=== PATIENT | male | born 1965 | race Caucasian/White ===

== ENCOUNTER 2022-06-17 16:57 | Inpatient (IN) ==
[2022-06-17] MEDS ORDERED: FUROSEMIDE 40 MG/4 ML VIAL IV ONE (17:41)
[2022-06-17] MEDS ORDERED: STAT IV Infusion **Titration per Protocol STA (17:41)
[2022-06-17] MEDS ORDERED: NITROGLYCERIN/D5W 100MCG/ML 250 ML IV SCH (17:45)
--- NOTE | 2022-06-17 17:54 | Emergency Department Note ---
Impression & Plan Hypertensive urgency, TISHA (acute kidney injury), Renal insufficiency, Pulmonary edema, CHF (congestive heart failure), Noncompliance with medication regimen, Chest pain, Elevated troponin ED Provider Note NAME: ANGELINA MOON AGE: 57 SEX: M : 1965 ARRIVES VIA: Ambulance INFORMANT: Patient, EMS ED PROVIDER(S): Clemente Beltran DO CHIEF COMPLAINT: Chest pain HPI: The patient is a 57-year-old male who presented to the emergency department by ambulance for an evaluation of difficulty breathing. The patient states he has been noticing chest pain and difficulty breathing over the course of the last few days. The patient states he has a history of hypertension. He also has a history of heart failure in the past. He has a history of depression and alcohol abuse. The patient states that he stopped taking his medications. He denies having any abdominal pain or vomiting. He denies having any black or bloody bowels. He notices orthopnea as well as lower extremity swelling. ROS: See above HPI for pertinent positives & negatives. A total of 10 systems reviewed and were otherwise negative. PAST MEDICAL HISTORY: See Below PAST SURGICAL HISTORY: See Below FAMILY HISTORY: See Below SOCIAL HISTORY: See Below HOME MEDICATIONS: See Below ALLERGIES: See Below VITALS: See Below PHYSICAL EXAMINATION: GENERAL: Patient is awake alert in no acute distress patient is resting comfortably and showing no signs of anxiety EYES: The conjunctivae are clear. The pupils are round and reactive. EARS, NOSE, MOUTH AND THROAT: The nose is without any evidence of any deformity. NECK: The neck is nontender and supple. RESPIRATORY: Diminished breath sounds are noted throughout. There were rales at both bases. There is tachypnea as well as conversational dyspnea. CARDIOVASCULAR: Regular rate and rhythm noted there no murmurs rubs or gallops normal S1 normal S2. GASTROINTESTINAL: The abdomen is soft. Abdomen is nontender. MUSCULOSKELETAL/EXTREMITIES: There is no evidence of gross deformity full range of motion is noted in the hips and shoulders. SKIN: Pedal edema was noted bilaterally. NEUROLOGIC: Patient is awake alert and oriented x3 MEDICAL DECISION MAKING: The patient is a 57-year-old male who has a history of hypertension as well as CHF. He presented to the emergency department by ambulance because of worsening shortness of breath and orthopnea. He also started to develop chest pain. The patient had an abnormal EKG but it does appear to be consistent with his previous tracing and a strain pattern. The patient appeared to be in pulmonary edema. This appears to be consistent with a hypertensive urgency. He was treated with IV nitroglycerin as well as IV Lasix. He was reevaluated multiple times. He required IV hydralazine as well. I discussed the patient's laboratory and radiographic studies with him. I also discussed this case with the on-call [facility]. They have agreed to evaluate the patient in the emergency department for further management and disposition. Triage Nursing notes reviewed. Prior medical records reviewed Vital Signs: reviewed and remarkable for hypertension and hypoxia. Differential diagnosis: Cardiac ischemia, aortic dissection, pulmonary embolism, pneumothorax, pneumonia, pericarditis, myocarditis, esophageal rupture, GERD, cholecystitis, pancreatitis, musculoskeletal, as well as other pathologies. ER treatment provided: See below Diagnostics interpreted by me: ECG: EKG was obtained in the emergency department. My interpretation is sinus tachycardia at 102 bpm. There is no ectopy. LVH was noted by voltage criteria with diffuse strain pattern. This was compared to a tracing from January 10, 2018. No changes were noted. Cardiac Monitoring: An order was placed for continuous cardiac monitoring. The monitor shows a rate of 80 bpm with sinus rhythm Laboratory studies: As stated above and show below. Imaging studies: See below. Radiographic imaging was reviewed by myself Consultation(s): I discussed this case with Dr. Bender who is on-call for the [facility] group. ED COURSE: Procedures: none Critical Care: I have personally spent greater than 45 minutes of critical care time in the direct management of this patient. This includes bedside care, interpretation of diagnostic studies, and testing, discussion with consultants, patient, and family members, and other required patient management activities. This 45 minutes is in excess of all separately billable procedures. Past Med/Surg History Medical History Alcohol abuse Depression Dyslipidemia HTN (hypertension) Social History Smoking Status: Never smoker Hx Alcohol Use: Yes (Denies alcohol for last 2 years.) Alcohol type: beer Hx Substance Use: No Preferred Language: Panamanian Communication Ability: Effective Examiner Of Currency Required: No Beliefs That Will Affect Care: None marital status: Single Current Living Situation: Family Current Living Situation Comment: Lives with his brother Kaz. How many Children do You have: 0 Feels Safe at Home: Yes Assistive Devices: None Allergies Allergies Allergy/AdvReac Type Severity Reaction Status Date / Time No Known Allergies Allergy Unknown Verified 06/17/22 21:17 Home Meds Home Medications Medication Instructions Recorded Confirmed amlodipine 5 mg tablet 5 mg PO QAM 06/17/22 06/17/22 cholecalciferol (vitamin D3) 1,250 1,250 mcg PO 2XWK 06/17/22 06/17/22 mcg (50,000 unit) capsule furosemide 40 mg tablet 40 mg PO BID 06/17/22 06/17/22 hydralazine 50 mg tablet 50 mg PO TID 06/17/22 06/17/22 isosorbide mononitrate 30 mg 30 mg PO QAM 06/17/22 06/17/22 tablet,extended release 24 hr metoprolol tartrate 50 mg tablet 50 mg PO BID 06/17/22 06/17/22 mirtazapine 45 mg tablet 45 mg PO HS 06/17/22 06/17/22 potassium chloride 20 mEq 40 meq PO QAM 06/17/22 06/17/22 tablet,extended release(part/cryst) (Klor-Con M) sertraline 100 mg tablet 100 mg PO DAILY 06/17/22 06/17/22 spironolactone 25 mg tablet 12.5 mg PO DAILY 06/17/22 06/17/22 Results & Data (ED) Vital Signs Vital Signs - 24 hr 06/17/22 17:08 06/17/22 17:18 06/17/22 17:28 Temperature 36.5 C Temperature Source Temporal Artery Scan Pulse Rate 100 H 98 H 66 Pulse Rate [Apical] Pulse Rate from SpO2 Sensor Pulse Rhythm Regular Respiratory Rate 20 20 Respiratory Effort / Characteristics Non-Labored Spontaneous Respiratory Depth Normal Respiratory Pattern Regular Blood Pressure 213/161 H Blood Pressure [Left Arm] Blood Pressure Mean 178 Blood Pressure Mean [Left Arm] Blood Pressure Position Sitting Pulse Oximetry 92 97 Oxygen Delivery Method Room Air Nasal Cannula Oxygen Flow Rate 2 Sepsis Recent Fever Within 48 Hours No Sepsis New/Unexplained Change in Mental Status N/A Sepsis Action Taken by Nursing No Action Required 06/17/22 17:10 06/17/22 17:15 06/17/22 17:15 Temperature Temperature Source Pulse Rate 100 H 98 H Pulse Rate [Apical] Pulse Rate from SpO2 Sensor 103 H 98 H Pulse Rhythm Respiratory Rate 31 H 34 H Respiratory Effort / Characteristics Respiratory Depth Respiratory Pattern Blood Pressure 211/153 H Blood Pressure [Left Arm] Blood Pressure Mean 172 Blood Pressure Mean [Left Arm] Blood Pressure Position Pulse Oximetry 91 90 Oxygen Delivery Method Oxygen Flow Rate Sepsis Recent Fever Within 48 Hours Sepsis New/Unexplained Change in Mental Status Sepsis Action Taken by Nursing 06/17/22 17:20 06/17/22 17:30 06/17/22 17:30 Temperature Temperature Source Pulse Rate 100 H 96 H Pulse Rate [Apical] Pulse Rate from SpO2 Sensor 100 H 96 H Pulse Rhythm Respiratory Rate 28 H 22 Respiratory Effort / Characteristics Respiratory Depth Respiratory Pattern Blood Pressure 211/152 H Blood Pressure [Left Arm] Blood Pressure Mean 171 Blood Pressure Mean [Left Arm] Blood Pressure Position Pulse Oximetry 91 90 Oxygen Delivery Method Oxygen Flow Rate Sepsis Recent Fever Within 48 Hours Sepsis New/Unexplained Change in Mental Status Sepsis Action Taken by Nursing 06/17/22 17:40 06/17/22 17:50 06/17/22 18:00 Temperature Temperature Source Pulse Rate 95 H 97 H Pulse Rate [Apical] Pulse Rate from SpO2 Sensor 95 H 97 H Pulse Rhythm Respiratory Rate 24 24 Respiratory Effort / Characteristics Respiratory Depth Respiratory Pattern Blood Pressure 203/152 H Blood Pressure [Left Arm] Blood Pressure Mean 169 Blood Pressure Mean [Left Arm] Blood Pressure Position Pulse Oximetry 91 97 Oxygen Delivery Method Oxygen Flow Rate Sepsis Recent Fever Within 48 Hours Sepsis New/Unexplained Change in Mental Status Sepsis Action Taken by Nursing 06/17/22 18:00 06/17/22 18:04 06/17/22 18:04 Temperature Temperature Source Pulse Rate 94 H 98 H Pulse Rate [Apical] Pulse Rate from SpO2 Sensor 94 H 98 H Pulse Rhythm Respiratory Rate 22 24 Respiratory Effort / Characteristics Respiratory Depth Respiratory Pattern Blood Pressure 211/152 H Blood Pressure [Left Arm] Blood Pressure Mean 171 Blood Pressure Mean [Left Arm] Blood Pressure Position Pulse Oximetry 97 97 Oxygen Delivery Method Oxygen Flow Rate Sepsis Recent Fever Within 48 Hours Sepsis New/Unexplained Change in Mental Status Sepsis Action Taken by Nursing 06/17/22 18:10 06/17/22 18:15 06/17/22 18:15 Temperature Temperature Source Pulse Rate 96 H 97 H Pulse Rate [Apical] Pulse Rate from SpO2 Sensor 96 H 97 H Pulse Rhythm Respiratory Rate 19 22 Respiratory Effort / Characteristics Respiratory Depth Respiratory Pattern Blood Pressure 210/147 H Blood Pressure [Left Arm] Blood Pressure Mean 168 Blood Pressure Mean [Left Arm] Blood Pressure Position Pulse Oximetry 98 97 Oxygen Delivery Method Oxygen Flow Rate Sepsis Recent Fever Within 48 Hours Sepsis New/Unexplained Change in Mental Status Sepsis Action Taken by Nursing 06/17/22 18:20 06/17/22 18:54 06/17/22 19:14 Temperature Temperature Source Pulse Rate 97 H Pulse Rate [Apical] 93 H 91 H Pulse Rate from SpO2 Sensor 97 H Pulse Rhythm Respiratory Rate 27 H 20 22 Respiratory Effort / Characteristics Respiratory Depth Respiratory Pattern Blood Pressure Blood Pressure [Left Arm] 204/141 H 201/132 H Blood Pressure Mean Blood Pressure Mean [Left Arm] 162 155 Blood Pressure Position Pulse Oximetry 98 97 96 Oxygen Delivery Method Nasal Cannula Nasal Cannula Oxygen Flow Rate 2 2 Sepsis Recent Fever Within 48 Hours Sepsis New/Unexplained Change in Mental Status Sepsis Action Taken by Nursing 06/17/22 19:00 06/17/22 19:20 06/17/22 19:30 Temperature Temperature Source Pulse Rate Pulse Rate [Apical] 94 H 88 86 Pulse Rate from SpO2 Sensor Pulse Rhythm Respiratory Rate 20 20 20 Respiratory Effort / Characteristics Respiratory Depth Respiratory Pattern Blood Pressure Blood Pressure [Left Arm] 211/143 H 197/126 H 185/123 H Blood Pressure Mean Blood Pressure Mean [Left Arm] 165 149 143 Blood Pressure Position Pulse Oximetry 96 96 96 Oxygen Delivery Method Nasal Cannula Nasal Cannula Nasal Cannula Oxygen Flow Rate 2 2 2 Sepsis Recent Fever Within 48 Hours Sepsis New/Unexplained Change in Mental Status Sepsis Action Taken by Nursing 06/17/22 19:40 06/17/22 20:26 Temperature Temperature Source Pulse Rate Pulse Rate [Apical] 87 80 Pulse Rate from SpO2 Sensor Pulse Rhythm Respiratory Rate 18 22 Respiratory Effort / Characteristics Respiratory Depth Respiratory Pattern Blood Pressure Blood Pressure [Left Arm] 190/120 H 185/125 H Blood Pressure Mean Blood Pressure Mean [Left Arm] 143 145 Blood Pressure Position Pulse Oximetry 96 97 Oxygen Delivery Method Nasal Cannula Nasal Cannula Oxygen Flow Rate 2 2 Sepsis Recent Fever Within 48 Hours Sepsis New/Unexplained Change in Mental Status Sepsis Action Taken by Assisted Medications Current Medication List: was personally reviewed by me Laboratory Data Attestation: I reviewed the patient's lab results. 06/17/22 17:45 06/17/22 17:45 Lab Results 06/17/22 06/17/22 06/17/22 Range/Units 17:11 17:45 17:45 WBC 11.10 H (4.8-10.8) K/ul RBC 4.07 L (4.70-6.10) M/uL Hgb 12.9 L (14.0-18.0) g/dl Hct 36.4 L (42.0-52.0) % MCV 89.4 (80.0-100.0) fL MCH 31.7 (25.0-34.0) pg MCHC 35.4 (32.0-36.0) g/dL RDW Std Deviation 43.7 (36.4-46.3) fL RDW Coeff of Juliette 13.3 (11.5-14.5) % Plt Count 340 (130-400) K/uL MPV 10.4 (9.4-12.4) fL Immature Gran % (Auto) 0.4 % Neut % (Auto) 85.7 % Lymph % (Auto) 7.5 % [place] % (Auto) 5.7 % Eos % (Auto) 0.2 % Baso % (Auto) 0.5 % Reticulocyte % (Auto) (0.5-2.0) % Neut # (Auto) 9.52 H (1.40-6.50) K/uL Lymph # (Auto) 0.83 L (1.2-3.4) K/uL [place] # (Auto) 0.63 H (0.11-0.59) K/uL Eos # (Auto) 0.02 (0-0.50) K/uL Baso # (Auto) 0.06 (0-0.2) K/uL Reticulocyte # (0.02-0.10) 10^6/uL Immature Gran # (Auto) 0.04 (0.01-0.20) K/uL PT 11.1 (9.0-12.0) Seconds INR 1.0 (0.9-1.1) APTT 23.6 (21.0-31.0) Seconds PTT Ratio 0.9 Sodium (136-145) mmol/L Potassium (3.5-5.1) mmol/L Chloride (98-107) mmol/L Carbon Dioxide (21-32) mmol/L Anion Gap (3-11) BUN (6-23) mg/dl Creatinine (0.6-1.4) mg/dl Est Cr Clr Drug Dosing ml/min Est GFR ( Amer) ml/min Est GFR (Non-Af Amer) ml/min BUN/Creatinine Ratio (10-20) Glucose (70-99(Fasting)) mg/dl Calcium (8.5-10.1) mg/dl Magnesium (1.7-2.4) mg/dl Iron (35-175) mcg/dl Transferrin (200-360) mg/dl Total Bilirubin (0.2-1.0) mg/dl AST (13-39) U/L ALT (7-52) U/L Alkaline Phosphatase (34-104) U/L Troponin I High Sens (0-20) pg/ml B-Natriuretic Peptide (0-100) pg/ml Total Protein (6.0-8.3) gm/dl Albumin (3.4-5.0) gm/dl Globulin (2.5-4.0) gm/dl Albumin/Globulin Ratio (0.9-2) Lipase (11-82) U/L Vitamin B12 310 (180-914) pg/ml Folate 15.54 (>5.38) ng/ml Urine Color Urine Appearance (Clear) Urine pH (4.5-7.5) Ur Specific Collins (1.000-1.030) Urine Protein (Negative) Urine Glucose (UA) (Negative) Urine Ketones (Negative) Urine Blood (Negative) Urine Nitrite (Negative) Urine Bilirubin (Negative) Urine Urobilinogen (Negative) Ur Leukocyte Esterase (Negative) Urine WBC (Auto) (0-5) /hpf Urine RBC (Auto) (0-4) /hpf U Hyaline Cast (Auto) (0-5) /lpf U Epithel Cells (Auto) (0-5) /lpf Urine Bacteria (Auto) (Negative) Ethyl Alcohol mg/dL (<10.0) mg/dl SARS-CoV-2, RNA, NAAT (NEGATIVE) 06/17/22 06/17/22 06/17/22 Range/Units 17:45 17:45 17:45 WBC (4.8-10.8) K/ul RBC (4.70-6.10) M/uL Hgb (14.0-18.0) g/dl Hct (42.0-52.0) % MCV (80.0-100.0) fL MCH (25.0-34.0) pg MCHC (32.0-36.0) g/dL RDW Std Deviation (36.4-46.3) fL RDW Coeff of Juliette (11.5-14.5) % Plt Count (130-400) K/uL MPV (9.4-12.4) fL Immature Gran % (Auto) % Neut % (Auto) % Lymph % (Auto) % [place] % (Auto) % Eos % (Auto) % Baso % (Auto) % Reticulocyte % (Auto) 2.4 H (0.5-2.0) % Neut # (Auto) (1.40-6.50) K/uL Lymph # (Auto) (1.2-3.4) K/uL [place] # (Auto) (0.11-0.59) K/uL Eos # (Auto) (0-0.50) K/uL Baso # (Auto) (0-0.2) K/uL Reticulocyte # 0.10 (0.02-0.10) 10^6/uL Immature Gran # (Auto) (0.01-0.20) K/uL PT (9.0-12.0) Seconds INR (0.9-1.1) APTT (21.0-31.0) Seconds PTT Ratio Sodium 139 (136-145) mmol/L Potassium 3.4 L (3.5-5.1) mmol/L Chloride 105 (98-107) mmol/L Carbon Dioxide 24 (21-32) mmol/L Anion Gap 10 (3-11) BUN 42 H (6-23) mg/dl Creatinine 2.30 H (0.6-1.4) mg/dl Est Cr Clr Drug Dosing 30.1 ml/min Est GFR ( Amer) 35.2 ml/min Est GFR (Non-Af Amer) 30.4 ml/min BUN/Creatinine Ratio 18.3 (10-20) Glucose 98 (70-99(Fasting)) mg/dl Calcium 8.6 (8.5-10.1) mg/dl Magnesium (1.7-2.4) mg/dl Iron (35-175) mcg/dl Transferrin (200-360) mg/dl Total Bilirubin 0.9 (0.2-1.0) mg/dl AST 34 (13-39) U/L ALT 43 (7-52) U/L Alkaline Phosphatase 108 H (34-104) U/L Troponin I High Sens 102.1 H* (0-20) pg/ml B-Natriuretic Peptide 4047 H (0-100) pg/ml Total Protein 6.1 (6.0-8.3) gm/dl Albumin 3.8 (3.4-5.0) gm/dl Globulin 2.3 L (2.5-4.0) gm/dl Albumin/Globulin Ratio 1.7 (0.9-2) Lipase 15 (11-82) U/L Vitamin B12 (180-914) pg/ml Folate (>5.38) ng/ml Urine Color Urine Appearance (Clear) Urine pH (4.5-7.5) Ur Specific Collins (1.000-1.030) Urine Protein (Negative) Urine Glucose (UA) (Negative) Urine Ketones (Negative) Urine Blood (Negative) Urine Nitrite (Negative) Urine Bilirubin (Negative) Urine Urobilinogen (Negative) Ur Leukocyte Esterase (Negative) Urine WBC (Auto) (0-5) /hpf Urine RBC (Auto) (0-4) /hpf U Hyaline Cast (Auto) (0-5) /lpf U Epithel Cells (Auto) (0-5) /lpf Urine Bacteria (Auto) (Negative) Ethyl Alcohol mg/dL (<10.0) mg/dl SARS-CoV-2, RNA, NAAT (NEGATIVE) 06/17/22 06/17/22 06/17/22 Range/Units 18:18 20:15 20:15 WBC (4.8-10.8) K/ul RBC (4.70-6.10) M/uL Hgb (14.0-18.0) g/dl Hct (42.0-52.0) % MCV (80.0-100.0) fL MCH (25.0-34.0) pg MCHC (32.0-36.0) g/dL RDW Std Deviation (36.4-46.3) fL RDW Coeff of Juliette (11.5-14.5) % Plt Count (130-400) K/uL MPV (9.4-12.4) fL Immature Gran % (Auto) % Neut % (Auto) % Lymph % (Auto) % [place] % (Auto) % Eos % (Auto) % Baso % (Auto) % Reticulocyte % (Auto) (0.5-2.0) % Neut # (Auto) (1.40-6.50) K/uL Lymph # (Auto) (1.2-3.4) K/uL [place] # (Auto) (0.11-0.59) K/uL Eos # (Auto) (0-0.50) K/uL Baso # (Auto) (0-0.2) K/uL Reticulocyte # (0.02-0.10) 10^6/uL Immature Gran # (Auto) (0.01-0.20) K/uL PT (9.0-12.0) Seconds INR (0.9-1.1) APTT (21.0-31.0) Seconds PTT Ratio Sodium (136-145) mmol/L Potassium (3.5-5.1) mmol/L Chloride (98-107) mmol/L Carbon Dioxide (21-32) mmol/L Anion Gap (3-11) BUN (6-23) mg/dl Creatinine (0.6-1.4) mg/dl Est Cr Clr Drug Dosing ml/min Est GFR ( Amer) ml/min Est GFR (Non-Af Amer) ml/min BUN/Creatinine Ratio (10-20) Glucose (70-99(Fasting)) mg/dl Calcium (8.5-10.1) mg/dl Magnesium 2.2 (1.7-2.4) mg/dl Iron 43 (35-175) mcg/dl Transferrin 282 (200-360) mg/dl Total Bilirubin (0.2-1.0) mg/dl AST (13-39) U/L ALT (7-52) U/L Alkaline Phosphatase (34-104) U/L Troponin I High Sens (0-20) pg/ml B-Natriuretic Peptide (0-100) pg/ml Total Protein (6.0-8.3) gm/dl Albumin (3.4-5.0) gm/dl Globulin (2.5-4.0) gm/dl Albumin/Globulin Ratio (0.9-2) Lipase (11-82) U/L Vitamin B12 (180-914) pg/ml Folate (>5.38) ng/ml Urine Color Urine Appearance (Clear) Urine pH (4.5-7.5) Ur Specific Collins (1.000-1.030) Urine Protein (Negative) Urine Glucose (UA) (Negative) Urine Ketones (Negative) Urine Blood (Negative) Urine Nitrite (Negative) Urine Bilirubin (Negative) Urine Urobilinogen (Negative) Ur Leukocyte Esterase (Negative) Urine WBC (Auto) (0-5) /hpf Urine RBC (Auto) (0-4) /hpf U Hyaline Cast (Auto) (0-5) /lpf U Epithel Cells (Auto) (0-5) /lpf Urine Bacteria (Auto) (Negative) Ethyl Alcohol mg/dL < 10.0 (<10.0) mg/dl SARS-CoV-2, RNA, NAAT NEGATIVE (NEGATIVE) 06/17/22 Range/Units 20:50 WBC (4.8-10.8) K/ul RBC (4.70-6.10) M/uL Hgb (14.0-18.0) g/dl Hct (42.0-52.0) % MCV (80.0-100.0) fL MCH (25.0-34.0) pg MCHC (32.0-36.0) g/dL RDW Std Deviation (36.4-46.3) fL RDW Coeff of Juliette (11.5-14.5) % Plt Count (130-400) K/uL MPV (9.4-12.4) fL Immature Gran % (Auto) % Neut % (Auto) % Lymph % (Auto) % [place] % (Auto) % Eos % (Auto) % Baso % (Auto) % Reticulocyte % (Auto) (0.5-2.0) % Neut # (Auto) (1.40-6.50) K/uL Lymph # (Auto) (1.2-3.4) K/uL [place] # (Auto) (0.11-0.59) K/uL Eos # (Auto) (0-0.50) K/uL Baso # (Auto) (0-0.2) K/uL Reticulocyte # (0.02-0.10) 10^6/uL Immature Gran # (Auto) (0.01-0.20) K/uL PT (9.0-12.0) Seconds INR (0.9-1.1) APTT (21.0-31.0) Seconds PTT Ratio Sodium (136-145) mmol/L Potassium (3.5-5.1) mmol/L Chloride (98-107) mmol/L Carbon Dioxide (21-32) mmol/L Anion Gap (3-11) BUN (6-23) mg/dl Creatinine (0.6-1.4) mg/dl Est Cr Clr Drug Dosing ml/min Est GFR ( Amer) ml/min Est GFR (Non-Af Amer) ml/min BUN/Creatinine Ratio (10-20) Glucose (70-99(Fasting)) mg/dl Calcium (8.5-10.1) mg/dl Magnesium (1.7-2.4) mg/dl Iron (35-175) mcg/dl Transferrin (200-360) mg/dl Total Bilirubin (0.2-1.0) mg/dl AST (13-39) U/L ALT (7-52) U/L Alkaline Phosphatase (34-104) U/L Troponin I High Sens (0-20) pg/ml B-Natriuretic Peptide (0-100) pg/ml Total Protein (6.0-8.3) gm/dl Albumin (3.4-5.0) gm/dl Globulin (2.5-4.0) gm/dl Albumin/Globulin Ratio (0.9-2) Lipase (11-82) U/L Vitamin B12 (180-914) pg/ml Folate (>5.38) ng/ml Urine Color Yellow Urine Appearance Clear (Clear) Urine pH 7.0 (4.5-7.5) Ur Specific Collins 1.006 (1.000-1.030) Urine Protein 2+ H (Negative) Urine Glucose (UA) Negative (Negative) Urine Ketones Negative (Negative) Urine Blood Trace H (Negative) Urine Nitrite Negative (Negative) Urine Bilirubin Negative (Negative) Urine Urobilinogen Negative (Negative) Ur Leukocyte Esterase Negative (Negative) Urine WBC (Auto) 0 (0-5) /hpf Urine RBC (Auto) 0-4 (0-4) /hpf U Hyaline Cast (Auto) 0 (0-5) /lpf U Epithel Cells (Auto) 0-5 (0-5) /lpf Urine Bacteria (Auto) Negative (Negative) Ethyl Alcohol mg/dL (<10.0) mg/dl SARS-CoV-2, RNA, NAAT (NEGATIVE) Administered Medications Nitroglycerin/Dextrose (Nitroglycerin/D5w 100 Mcg/Ml) 250 mls @ 0 mls/hr IV .[facility]M [facility]; Protocol Stop: 07/17/22 17:44 Last Titration: 06/17/22 19:46 Dose: 0 mcg/min, 0 mls/hr Documented By: Titration: 06/17/22 19:35 Dose: 30 mcg/min, 18 mls/hr Documented By: Titration: 06/17/22 19:04 Dose: 25 mcg/min, 15 mls/hr Documented By: Titration: 06/17/22 18:55 Dose: 20 mcg/min, 12 mls/hr Documented By: Titration: 06/17/22 18:35 Dose: 15 mcg/min, 9 mls/hr Documented By: Titration: 06/17/22 18:17 Dose: 10 mcg/min, 6 mls/hr Documented By: Admin: 06/17/22 17:57 Dose: 5 mcg/min, 3 mls/hr Documented By: LIVIER Co-signed By: NELSON Discontinued Medications Acetaminophen (Acetaminophen 500 Mg Tab) 1,000 mg PO NOW STA Stop: 06/17/22 19:01 Last Admin: 06/17/22 19:05 Dose: 1,000 mg Documented By: NADIA Amlodipine Besylate (Amlodipine Besylate 5 Mg Tab) 5 mg PO NOW ONE Stop: 06/17/22 20:37 Last Admin: 06/17/22 20:48 Dose: 5 mg Documented By: LIVIER Furosemide (Furosemide 40 Mg/4 Ml Vial) 40 mg IV ONE ONE Stop: 06/17/22 17:42 Last Admin: 06/17/22 17:57 Dose: 40 mg Documented By: LIVIER Hydralazine HCl (Hydralazine Hcl 20 Mg/Ml Vial) 10 mg IV NOW STA Stop: 06/17/22 19:01 Last Admin: 06/17/22 19:05 Dose: 10 mg Documented By: NADIA Thiamine HCl 100 mg/ Syringe 10 mls @ 2 mls/min IV NOW STA Stop: 06/17/22 20:18 Last Admin: 06/17/22 20:51 Dose: Not Given Documented By: AN Labetalol HCl (Labetalol Hcl Iv 5 Mg/Ml 20ml) 10 mg IV NOW STA Stop: 06/17/22 19:32 Last Admin: 06/17/22 20:20 Dose: 10 mg Documented By: AN Co-signed By: CC Miscellaneous (Stat Iv Infusion Titration Per Protocol) 1 each N/A NOW STA Stop: 06/17/22 17:42 Last Admin: 06/17/22 18:56 Dose: 1 each Documented By: AN Morphine Sulfate (Morphine Sulfate 4 Mg/Ml 1 Ml Carp\Vial) 4 mg IV NOW STA Stop: 06/17/22 19:01 Last Admin: 06/17/22 19:05 Dose: 4 mg Documented By: AN Ondansetron HCl (Ondansetron Inj 2 Mg/Ml 2 Ml Vial) 4 mg IV NOW STA Stop: 06/17/22 19:01 Last Admin: 06/17/22 19:05 Dose: 4 mg Documented By: AN Potassium Chloride (Potassium Chloride Pwd 20 Meq Pack) 40 meq PO NOW STA Stop: 06/17/22 19:29 Last Admin: 06/17/22 20:20 Dose: 40 meq Documented By: AN Imaging Data Radiologist's Impression: Chest X-Ray 06/17/22 17:28 SINGLE VIEW CHEST CLINICAL HISTORY: Atypical chest pain FINDINGS: An AP, portable, upright chest radiograph is compared to study dated 01/13/2018 and correlated with chest CT dated 01/10/2018. The heart is enlarged. There is pulmonary vascular congestion. There are layering pleural effusions with dependent consolidation. No pneumothorax is seen. The skeletal structures are osteopenic. The bony thorax is grossly intact. IMPRESSION: 1. Cardiomegaly with evidence of congestive failure. 2. Layering pleural effusions with dependent consolidation. ACT 112: Negative or not required by law. Electronically signed by: Ren Celeste M.D. 06/17/2022 7:[address] 06/17/22 20:04 CT SCAN OF THE BRAIN WITHOUT IV CONTRAST CLINICAL HISTORY: Headache. Hypertension. COMPARISON STUDY: CT of the brain dated 11/09/2007. MRI of the brain dated 11/10/2007. TECHNIQUE: Unenhanced axial CT scan of the brain is performed from the vertex to the skull base. A dose lowering technique was utilized adhering to the principles of ALARA. The examination is degraded by motion artifact. CT DOSE: 537.48 mGy.cm FINDINGS: Brain parenchyma: There is mild subcortical and periventricular microangiopathic disease. There is no hemorrhage, mass effect, or evidence of acute territorial ischemia by CT criteria. Bland-white matter differentiation is preserved. No extra-axial fluid collection is seen. Ventricles, sulci, cisterns: Normal configuration. Intracranial vasculature: The visualized intracranial vessels at the skull base are normal in appearance. Calvarium: Unremarkable. Sinuses and mastoids: The visualized paranasal sinuses are clear. The mastoid air cells are well pneumatized. Orbits: The bony orbits are grossly intact. IMPRESSION: There is no hemorrhage, mass effect, or evidence of acute territorial ischemia by CT criteria. ACT 112: Negative or not required by law. Electronically signed by: Ren Celeste M.D. 06/17/2022 9:20 PM Discharge Plan Visit Data Chief Complaint: Hypertension ED Provider: Clemente Beltran Discharge Problem: Hypertensive urgency, TISHA (acute kidney injury), Renal insufficiency, Pulmonary edema, CHF (congestive heart failure), Noncompliance with medication regimen, Chest pain, Elevated troponin Patient Disposition: Being Evaluated by Hospitalist Forms Stand Alone Forms: [facility] Prescriptions Prescriptions: No Action potassium chloride [Klor-Con M20] 20 mEq tablet,ER particles/crystals 40 meq PO QAM Rx Instructions: TWO TABLET DOSE 06/17/22 PER PT : HAS NOT TAKEN IN APPROX ONE YEAR. sertraline 100 mg Tablet 100 mg PO DAILY Rx Instructions: PER PT : HAS NOT TAKEN IN APPROX ONE YEAR. mirtazapine 45 mg Tablet 45 mg PO HS Rx Instructions: 06/17/22 PER PT : HAS NOT TAKEN IN APPROX ONE YEAR. amlodipine 5 mg Tablet 5 mg PO QAM Rx Instructions: 06/17/22 PER PT : HAS NOT TAKEN IN APPROX ONE YEAR. furosemide 40 mg tablet 40 mg PO BID Rx Instructions: 06/17/22 PER PT : HAS NOT TAKEN IN APPROX ONE YEAR. hydralazine 50 mg Tablet 50 mg PO TID Rx Instructions: 02/22/23 PER PT : HAS NOT TAKEN IN APPROX ONE WEEK. isosorbide mononitrate 30 mg tablet extended release 24 hr 30 mg PO QAM Rx Instructions: 06/17/22 PER PT : HAS NOT TAKEN IN APPROX ONE YEAR. metoprolol tartrate 50 mg tablet 50 mg PO BID Rx Instructions: 06/17/22 PER PT : HAS NOT TAKEN IN APPROX ONE YEAR. spironolactone 25 mg tablet 12.5 mg PO DAILY cholecalciferol (vitamin D3) 1,250 mcg (50,000 unit) Capsule 1,250 mcg PO 2XWK Rx Instructions: TAKE THIS MED 2 X WEEKLY 06/17/22 PER PT : HAS NOT TAKEN IN APPROX ONE YEAR. Referrals Referrals: PCP,NO [Physician] -
[2022-06-17 18:27] LABS: Basophils # (auto) 0.06 K/uL (0-0.2); Basophils % (auto) 0.5 %; Eosinophils # (auto) 0.02 K/uL (0-0.50); Eosinophils % (auto) 0.2 %; Hematocrit (blood only) 36.4 % (42.0-52.0); Hemoglobin 12.9 g/dl (14.0-18.0); Immature Granulocytes # (auto) 0.04 K/uL (0.01-0.20); Immature Granulocytes % (auto) 0.4 %; Lymphocytes # (auto) 0.83 K/uL (1.2-3.4); Lymphocytes % (auto) 7.5 %; Mean Corpuscular Hemoglobin 31.7 pg (25.0-34.0); Mean Corpuscular Hgb Conc 35.4 g/dL (32.0-36.0); Mean Corpuscular Volume 89.4 fL (80.0-100.0); Mean Platelet Volume 10.4 fL (9.4-12.4); Monocytes # (auto) 0.63 K/uL (0.11-0.59); Monocytes % (auto) 5.7 %; Neutrophils # (auto) 9.52 K/uL (1.40-6.50); Neutrophils % (auto) 85.7 %; Platelet Count 340 K/uL (130-400); RDW Coefficient of Variation 13.3 % (11.5-14.5); RDW Standard Deviation 43.7 fL (36.4-46.3); Red Blood Count 4.07 M/uL (4.70-6.10)
[2022-06-17 18:41] LABS: Albumin Globulin Ratio 1.7 (0.9-2); Albumin Level 3.8 gm/dl (3.4-5.0); BUN Creatinine Ratio 18.3 (10-20); Bilirubin,Total 0.9 mg/dl (0.2-1.0); Calcium 8.6 mg/dl (8.5-10.1); Creatinine Clr Calc Pharmacy 30.1 ml/min; Est GFR (African American) 35.2 ml/min; Est GFR (Non-African American) 30.4 ml/min; Globulin 2.3 gm/dl (2.5-4.0); Potassium 3.4 mmol/L (3.5-5.1); Total Protein 6.1 gm/dl (6.0-8.3)
[2022-06-17 18:56] LABS: Partial Thromboplastin Ratio 0.9; Partial Thromboplastin Time 23.6 Seconds (21.0-31.0); Prothrombin Time 11.1 Seconds (9.0-12.0); Troponin I High Sensitivity 102.1 pg/ml (0-20)
[2022-06-17] MEDS ORDERED: hydrALAZINE HCL 20 MG/ML VIAL IV STA (19:00)
[2022-06-17] MEDS ORDERED: ONDANSETRON INJ 2 MG/ML 2 ML VIAL IV STA (19:00)
[2022-06-17] MEDS ORDERED: ACETAMINOPHEN 500 MG TAB PO STA (19:00)
[2022-06-17] MEDS ORDERED: MoRPHine SULFATE 4 MG/ML 1 ML CARP\\VIAL IV STA (19:00)
--- NOTE | 2022-06-17 19:03 | XRay Report ---
SINGLE VIEW CHEST CLINICAL HISTORY: Atypical chest pain FINDINGS: An AP, portable, upright chest radiograph is compared to study dated 01/13/2018 and correlat ed with chest CT dated 01/10/2018. The heart is enlarged. There is pulmonary vascular congestion. Ther e are layering pleural effusions with dependent consolidation. No pneumothorax is seen. The skeletal structures are osteopenic. The bony thorax is grossly intact. IMPRESSION: 1. Cardiomegaly with evidence of congestive failure. 2. Layering pleural effusions with dependent consolidation. ACT 112: Negative or not required by law. Electronically signed by: Ren Celeste M.D. 06/17/2022 7:01 PM
[2022-06-17] MEDS ORDERED: POTASSIUM CHLORIDE PWD 20 MEQ PACK PO STA (19:28)
[2022-06-17] MEDS ORDERED: LABETALOL HCL IV 5 MG/ML 20ML IV STA (19:31)
[2022-06-17 20:05] LABS: Reticulocyte % 2.4 % (0.5-2.0); Reticulocytes # 0.1 10^6/uL (0.02-0.10)
[2022-06-17] MEDS ORDERED: THIAMINE HCL 100 MG in SYRINGE 9 ML IV STA (20:14)
[2022-06-17] MEDS ORDERED: amLODIPine BESYLATE 5 MG TAB PO ONE (20:36)
--- NOTE | 2022-06-17 20:37 | History & Physical Report ---
Date of Service June 17, 2022 Assessment & Plan (1) Decompensated heart failure: Plan: Secondary to hypertensive crisis secondary to medication noncompliance hx chronic diastolic heart failure (EF 55 to 59%, TTE 2019) valvular heart disease (mild MR/TR) from 2019 TTE ARF on CKD likely secondary to uncontrolled hypertension Troponin elevation secondary to CHF, uncontrolled BP in the setting of kidney dysfunction mood disorder, stable off maintenance medications for more than a year now New onset anemia, outpatient hemoglobin from 2020 was within normal limits past alcohol/tobacco abuse PCU Diuretic Rx Strict I/Os, daily weights, CHF education Gradually resume patient's home BP meds starting with amlodipine and beta- ben Patient counseled regarding importance of compliance with home medication regimen. Updated TTE, Cardiology consult Re: Decompensated heart failure Renal ultrasound given kidney dysfunction, may benefit from inpatient Nephrology consultation Anemia work-up DVT prophylaxis. Heparin subcu Full code Text document was generated using [employer] voice recognition software. It may contain grammatical or spelling errors. Kindly contact undersigned for clarification of any documentation item in question. History of Present Illness Chief Complaint: Shortness of breath Primary Care Provider: Veronika Rai MD History obtained from patient and records. Medical history significant for chronic diastolic heart failure (EF 55 to 59%, TTE 2019), valvular heart disease (mild MR/TR ), HTN, mood disorder, CRI (baseline creatinine 1.8), past alcohol/tobacco abuse, medication noncompliance. Last confinement December 2017 for CHF. TTE showed EF noted to be 25 to 30% and severe MR, pulmonary hypertension, and moderate pericardial effusion. Improved EF of 55-5 9% on outpatient TTE from 2019. Patient stopped taking home medications more than a year ago because he felt tired taking them. Last week, patient noted shortness of breath worse on exertion with transient chest tightness and headache symptoms. Bilateral leg swelling with some weight gain noted. No unusual cough symptoms. Patient denies abdominal pain/black/bloody stools/hematuria. Last alcoholic drink was years ago as per patient SBP noted to be 210s upon arrival at the ER. Nitro drip, hydralazine, and Lasix administered at the ER. Medical History as above Surgical History : None Family History : Hypertension Personal/Social history : Past tobacco/alcohol abuse, unemployed Allergies Allergy/AdvReac Type Severity Reaction Status Date / Time No Known Allergies Allergy Unknown Verified 06/17/22 21:17 Home Medications Medication Instructions Recorded Confirmed Type amlodipine 5 mg tablet 5 mg PO QAM 06/17/22 06/17/22 History cholecalciferol (vitamin D3) 1,250 1,250 mcg PO 2XWK 06/17/22 06/17/22 History mcg (50,000 unit) capsule furosemide 40 mg tablet 40 mg PO BID 06/17/22 06/17/22 History hydralazine 50 mg tablet 50 mg PO TID 06/17/22 06/17/22 History isosorbide mononitrate 30 mg 30 mg PO QAM 06/17/22 06/17/22 History tablet,extended release 24 hr metoprolol tartrate 50 mg tablet 50 mg PO BID 06/17/22 06/17/22 History mirtazapine 45 mg tablet 45 mg PO HS 06/17/22 06/17/22 History potassium chloride 20 mEq 40 meq PO QAM 06/17/22 06/17/22 History tablet,extended release(part/cryst) (Klor-Con M) sertraline 100 mg tablet 100 mg PO DAILY 06/17/22 06/17/22 History spironolactone 25 mg tablet 12.5 mg PO DAILY 06/17/22 06/17/22 History Past Med/Surg History Medical History Alcohol abuse Depression Dyslipidemia HTN (hypertension) Social History Smoking Status: Never smoker Second Hand Exposure: No; Do You Dip or Chew Tobacco: Yes; Tobacco Cessation Education Requested by Patient: No Hx Alcohol Use: No Hx Substance Use: No Preferred Language: Georgian Communication Ability: Effective Parking Lot Chauffeur Required: No Beliefs That Will Affect Care: None marital status: Single Current Living Situation: Alone Current Living Situation Comment: Lives with his brother Kaz. How many Children do You have: 0 Other Information That Helps Us Care for You: No Feels Safe at Home: Yes Safety Concerns: Feels Safe At This Time Assistive Devices: Glasses Review of Systems Review of Systems: As per HPI, all other systems reviewed and negative Physical Exam Physical Exam: GENERAL: Slightly uncomfortable, slightly anxious, no respiratory distress SKIN: pallor, warm HEENT: Bespectacled, pale palpebral conjunctivae, no ptosis, moist buccal mucosa, nasal cannula in place NECK : Supple, non-tender CHEST : Decreased breath sounds, no tenderness HEART : RRR, no obvious murmurs ABDOMEN: Some distention, nontender EXTREMITIES : Bilateral LE swelling, no LE tenderness, no other conspicuous deformities noted NEUROLOGIC : Coherent, no facial asymmetry, no other gross focality Results & Data Results & Data ([facility]) Vital Signs (Past 12 Hours) Vital Signs Temp Pulse Pulse Resp BP BP Pulse Ox 06/17/22 20:26 80 22 185/125 H 97 06/17/22 19:40 87 18 190/120 H 96 06/17/22 19:30 86 20 185/123 H 96 06/17/22 19:20 88 20 197/126 H 96 06/17/22 19:00 94 H 20 211/143 H 96 06/17/22 19:14 91 H 22 201/132 H 96 06/17/22 18:54 93 H 20 204/141 H 97 06/17/22 18:20 97 H 27 H 98 06/17/22 18:15 210/147 H 06/17/22 18:15 97 H 22 97 06/17/22 18:10 96 H 19 98 06/17/22 18:04 211/152 H 06/17/22 18:04 98 H 24 97 06/17/22 18:00 94 H 22 97 06/17/22 18:00 203/152 H 06/17/22 17:50 97 H 24 97 06/17/22 17:40 95 H 24 91 06/17/22 17:30 96 H 22 90 06/17/22 17:30 211/152 H 06/17/22 17:20 100 H 28 H 91 06/17/22 17:15 211/153 H 06/17/22 17:15 98 H 34 H 90 06/17/22 17:10 100 H 31 H 91 06/17/22 17:28 66 20 97 06/17/22 17:18 98 H 06/17/22 17:08 36.5 C 100 H 20 213/161 H 92 O2 Del Method O2 Flow Rate 06/17/22 20:26 Nasal Cannula 2 06/17/22 19:40 Nasal Cannula 2 06/17/22 19:30 Nasal Cannula 2 06/17/22 19:20 Nasal Cannula 2 06/17/22 19:00 Nasal Cannula 2 06/17/22 19:14 Nasal Cannula 2 06/17/22 18:54 Nasal Cannula 2 06/17/22 18:20 06/17/22 18:15 06/17/22 18:15 06/17/22 18:10 06/17/22 18:04 06/17/22 18:04 06/17/22 18:00 06/17/22 18:00 06/17/22 17:50 06/17/22 17:40 06/17/22 17:30 06/17/22 17:30 06/17/22 17:20 06/17/22 17:15 06/17/22 17:15 06/17/22 17:10 06/17/22 17:28 Nasal Cannula 2 06/17/22 17:18 06/17/22 17:08 Room Air Laboratory Results Laboratory Results WBC 11.10 K/ul (4.8-10.8) H 06/17/22 17:45 RBC 4.07 M/uL (4.70-6.10) L 06/17/22 17:45 Hgb 12.9 g/dl (14.0-18.0) L 06/17/22 17:45 Hct 36.4 % (42.0-52.0) L 06/17/22 17:45 MCV 89.4 fL (80.0-100.0) 06/17/22 17:45 MCH 31.7 pg (25.0-34.0) 06/17/22 17:45 MCHC 35.4 g/dL (32.0-36.0) 06/17/22 17:45 RDW Std Deviation 43.7 fL (36.4-46.3) 06/17/22 17:45 RDW Coeff of Juliette 13.3 % (11.5-14.5) 06/17/22 17:45 Plt Count 340 K/uL (130-400) 06/17/22 17:45 MPV 10.4 fL (9.4-12.4) 06/17/22 17:45 Immature Gran % (Auto) 0.4 % 06/17/22 17:45 Neut % (Auto) 85.7 % 06/17/22 17:45 Lymph % (Auto) 7.5 % 06/17/22 17:45 Warrick % (Auto) 5.7 % 06/17/22 17:45 Eos % (Auto) 0.2 % 06/17/22 17:45 Baso % (Auto) 0.5 % 06/17/22 17:45 Reticulocyte % (Auto) 2.4 % (0.5-2.0) H 06/17/22 17:45 Neut # (Auto) 9.52 K/uL (1.40-6.50) H 06/17/22 17:45 Lymph # (Auto) 0.83 K/uL (1.2-3.4) L 06/17/22 17:45 Warrick # (Auto) 0.63 K/uL (0.11-0.59) H 06/17/22 17:45 Eos # (Auto) 0.02 K/uL (0-0.50) 06/17/22 17:45 Baso # (Auto) 0.06 K/uL (0-0.2) 06/17/22 17:45 Reticulocyte # 0.10 10^6/uL (0.02-0.10) 06/17/22 17:45 Immature Gran # (Auto) 0.04 K/uL (0.01-0.20) 06/17/22 17:45 PT 11.1 Seconds (9.0-12.0) 06/17/22 17:45 INR 1.0 (0.9-1.1) 06/17/22 17:45 APTT 23.6 Seconds (21.0-31.0) 06/17/22 17:45 PTT Ratio 0.9 06/17/22 17:45 Sodium 139 mmol/L (136-145) 06/17/22 17:45 Potassium 3.4 mmol/L (3.5-5.1) L 06/17/22 17:45 Chloride 105 mmol/L (98-107) 06/17/22 17:45 Carbon Dioxide 24 mmol/L (21-32) 06/17/22 17:45 Anion Gap 10 (3-11) 06/17/22 17:45 BUN 42 mg/dl (6-23) H 06/17/22 17:45 Creatinine 2.30 mg/dl (0.6-1.4) H 06/17/22 17:45 Est Cr Clr Drug Dosing 30.1 ml/min 06/17/22 17:45 Est GFR ( Amer) 35.2 ml/min 06/17/22 17:45 Est GFR (Non-Af Amer) 30.4 ml/min 06/17/22 17:45 BUN/Creatinine Ratio 18.3 (10-20) 06/17/22 17:45 Glucose 98 mg/dl (70-99(Fasting)) 06/17/22 17:45 Calcium 8.6 mg/dl (8.5-10.1) 06/17/22 17:45 Total Bilirubin 0.9 mg/dl (0.2-1.0) 06/17/22 17:45 AST 34 U/L (13-39) 06/17/22 17:45 ALT 43 U/L (7-52) 06/17/22 17:45 Alkaline Phosphatase 108 U/L (34-104) H 06/17/22 17:45 Troponin I High Sens 102.1 pg/ml (0-20) H* 06/17/22 17:45 B-Natriuretic Peptide 4047 pg/ml (0-100) H 06/17/22 17:45 Total Protein 6.1 gm/dl (6.0-8.3) 06/17/22 17:45 Albumin 3.8 gm/dl (3.4-5.0) 06/17/22 17:45 Globulin 2.3 gm/dl (2.5-4.0) L 06/17/22 17:45 Albumin/Globulin Ratio 1.7 (0.9-2) 06/17/22 17:45 Lipase 15 U/L (11-82) 06/17/22 17:45 SARS-CoV-2, RNA, NAAT NEGATIVE (NEGATIVE) 06/17/22 18:18 Impressions Chest X-Ray 06/17/22 17:28 SINGLE VIEW CHEST CLINICAL HISTORY: Atypical chest pain FINDINGS: An AP, portable, upright chest radiograph is compared to study dated 01/13/2018 and correlated with chest CT dated 01/10/2018. The heart is enlarged. There is pulmonary vascular congestion. There are layering pleural effusions with dependent consolidation. No pneumothorax is seen. The skeletal structures are osteopenic. The bony thorax is grossly intact. IMPRESSION: 1. Cardiomegaly with evidence of congestive failure. 2. Layering pleural effusions with dependent consolidation. ACT 112: Negative or not required by law. Electronically signed by: Ren Celeste M.D. 06/17/2022 7:01 PM Diagnostic Findings EKG as per my interpretation :Rate 105, sinus tachycardia, normal axis, LVH, T wave abnormalities lateral leads
[2022-06-17 21:14] LABS: Appearance Urine Clear (Clear); Bacteria Urine Automated Negative (Negative); Bilirubin Urine Negative (Negative); Blood Urine Trace (Negative); Cast Urine Automated 0 /lpf (0-5); Color Urine Yellow; Epithelial Cell Urine Auto 0-5 /lpf (0-5); Glucose Urine UA Negative (Negative); Ketones Urine Negative (Negative); Leukocyte Esterase Urine Negative (Negative); Nitrite Urine Negative (Negative); Protein Urine 2+ (Negative); RBC Urine Automated 0-4 /hpf (0-4); Specific Gravity Urine 1.006 (1.000-1.030); Urobilinogen Urine Negative (Negative); WBC Urine Automated 0 /hpf (0-5)
[2022-06-17 21:15] LABS: Magnesium 2.2 mg/dl (1.7-2.4)
--- NOTE | 2022-06-17 21:22 | CT Scan Report ---
CT SCAN OF THE BRAIN WITHOUT IV CONTRAST CLINICAL HISTORY: Headache. Hypertension. COMPARISON STUDY: CT of the brain dated 11/09/2007. MRI of the brain dated 11/10/2007. TECHNIQUE: Unenhanced axial CT scan of the brain is performed from the vertex to the skull base. A do se lowering technique was utilized adhering to the principles of ALARA. The examination is degraded b y motion artifact. CT DOSE: 537.48 mGy.cm FINDINGS: Brain parenchyma: There is mild subcortical and periventricular microangiopathic disease. There is no hemorrhage, mass effect, or evidence of acute territorial ischemia by CT criteria. Bland-white matter differentiation is preserved. No extra-axial fluid collection is seen. Ventricles, sulci, cisterns: Normal configuration. Intracranial vasculature: The visualized intracranial vessels at the skull base are normal in appeara nce. Calvarium: Unremarkable. Sinuses and mastoids: The visualized paranasal sinuses are clear. The mastoid air cells are well pneu matized. Orbits: The bony orbits are grossly intact. IMPRESSION: There is no hemorrhage, mass effect, or evidence of acute territorial ischemia by CT vickie moy. ACT 112: Negative or not required by law. Electronically signed by: Ren Celeste M.D. 06/17/2022 9:20 PM
[2022-06-17 21:35] LABS: Ferritin 117.6 ng/ml (8-388)
[2022-06-17] MEDS ORDERED: PROMETHAZINE HCL 6.25 MG in SODIUM CHLORIDE 0.9% 50 ML IV PRN (23:33)
[2022-06-17] MEDS ORDERED: NITROGLYCERIN SL 0.4 MG/TAB TAB SL PRN (23:33)
[2022-06-18] MEDS: METOPROLOL TARTRATE 25 MG TAB PO SCH ×2 (00:16→09:24)
[2022-06-18] MEDS: HEPARIN SOD 5,000 UNIT/0.5 ML VIAL SQ SCH ×4 (00:16→20:27)
[2022-06-18 06:40] LABS: Basophils # (auto) 0.06 K/uL (0-0.2); Basophils % (auto) 0.6 %; Eosinophils % (auto) 1.1 %; Hematocrit (blood only) 32.3 % (42.0-52.0); Hemoglobin 11.3 g/dl (14.0-18.0); Immature Granulocytes # (auto) 0.03 K/uL (0.01-0.20); Immature Granulocytes % (auto) 0.3 %; Lymphocytes # (auto) 0.94 K/uL (1.2-3.4); Lymphocytes % (auto) 9.9 %; Mean Corpuscular Hemoglobin 31.7 pg (25.0-34.0); Mean Corpuscular Volume 90.5 fL (80.0-100.0); Monocytes % (auto) 8.4 %; Neutrophils # (auto) 7.59 K/uL (1.40-6.50); Neutrophils % (auto) 79.7 %; Platelet Count 267 K/uL (130-400); RDW Coefficient of Variation 13.3 % (11.5-14.5); RDW Standard Deviation 44.1 fL (36.4-46.3); Red Blood Count 3.57 M/uL (4.70-6.10); White Blood Count 9.52 K/ul (4.8-10.8)
[2022-06-18 06:43] LABS: BUN Creatinine Ratio 18.2 (10-20); Est GFR (African American) 36.2 ml/min; Est GFR (Non-African American) 31.2 ml/min; Potassium 3.7 mmol/L (3.5-5.1)
[2022-06-18 06:51] LABS: Troponin I High Sensitivity 82.9 pg/ml (0-20)
--- NOTE | 2022-06-18 08:36 | Cardiology Consultation ---
Date of Consultation June 18, 2022 Assessment & Plan (1) Combined systolic and diastolic congestive heart failure: (2) Decompensated heart failure: (3) Hypertensive crisis: (4) Elevated troponin: Plan 57-year-old male diagnosed with hypertensive crisis and acute on chronic d ecompensated CHF secondary to medication noncompliance. Patient carries a history of HFrEF of unknown etiology with improvement in LVEF in 2019. High-sensitivity troponin elevated but trending downward, likely in the setting of TISHA superimposed on CKD and hypertensive crisis. EKG without acute changes suggestive of ACS. Per outpatient records from 2020 patient was formally on hydralazine 50 mg 3 times daily, Aldactone 12.5 mg daily, Norvasc 5 mg daily, Imdur 30 mg daily, metoprolol tartrate 50 mg twice daily, and Lasix 40 mg twice daily. There is a high likelihood that patient will remain noncompliant with medications should the regimen be too complex. Recommendations: 1. Transition metoprolol tartrate to metoprolol succinate 50 mg daily. CV benefits also noted with this change given his history of HFrEF. 2. Add Imdur 30 mg daily 3. Continue Norvasc 5 mg daily as ordered- will hold off on increase of this dose due to lower extremity edema 4. Ultimately, patient may benefit from restarting Aldactone, however given his renal dysfunction will continue with IV Lasix at this time and reassess pending clinical course. Supplement potassium for a goal of 4.0. 5. Further recommendations pending echo results. 6. May benefit from nephrology evaluation for CKD Case discussed with Dr. Rdz-- will follow. Supervising Physician Co-Signing Physician Notes I have reviewed the advanced practitioner documentation and agree. I saw and evaluated the patient on date of service referenced in note and have performed the following medically appropriate history and/or exam: I had a lengthy conversation with the patient in terms of his untreated BP and end organ damage including reduced LV systolic function and renal failure. The need for medication compliance reinforced. Med changes as above. Given lack of symptoms and previous hx of NICM due to uncontrolled hypertension, will hold off ischemic workup for now. Continue to monitor on tele. History of Present Illness Reason for Consultation: Hypertensive crisis Requesting Physician: Booker kauffman Attending Physician: Sophia Mauro DO History of Present Illness 57-year-old male who initially presented to [facility] emergency department due to headaches, shortness of breath, and chest discomfort. Symptoms progressively got worse over the last 4-6 weeks. Also noted Orthopnea, PND, and lower extremity edema. Systolic blood pressure was in the 210s upon arrival. Patient self discontinued all of his medications aprox 6-9 mos ago- stated he was "sick of taking them all". He was started on a nitro drip and given IV hydralazine and IV Lasix in the ED. Blood work indicated worsening renal function (scr ~2.2). It appears that his baseline creatinine is within the range of 1.6-1.9 as an outpatient. Patient was started on metoprolol tartrate 25 mg twice daily and amlodipine 5 mg daily. Diuresing with Lasix 60 mg IV twice daily. Lower extremity edema has improved since restarting Lasix, notes improvement with orthopnea. Smokes occasionally- "a few cigarettes a week", occasionally drinks 1 can of beer once or twice a week, no illicit drug use. Chest x-ray: Cardiomegaly with evidence of CHF, layering pleural effusions with dependent consolidation Head CT: No evidence of hemorrhage, mass effect, or evidence of acute territorial ischemia EKG: Sinus tach with LVH and repolarization abnormality, 102 bpm. High-sensitivity troponins elevated but trending down (102.1>>116>>82.9) Tele: SR 70-80s I&O: -480mL Weight: 60.1 kg >>60.5 kg Formally followed with Dr. Rdz, cardiology however has not been seen in over 3 years due to lack of follow-up. PAST MEDICAL HISTORY: 1.H/o Severe LV systolic dysfunction with an episode of acute decompensation. EF 20 to 25%, of unclear etiology, 2018 1. Resolved per echo 2019 (LVEF 55-59%) 2.Hypertension. 3.Medical noncompliance. 4.History of alcohol abuse. 5.Chronic kidney disease. 6.Severe mitral regurgitation. 7.Moderate circumferential pericardial effusion. 8.History of depression and suicidal ideation. Allergies Allergy/AdvReac Type Severity Reaction Status Date / Time No Known Allergies Allergy Unknown Verified 06/17/22 21:17 Home Medications Medication Instructions Recorded Confirmed Type amlodipine 5 mg tablet 5 mg PO QAM 06/17/22 06/17/22 History cholecalciferol (vitamin D3) 1,250 1,250 mcg PO 2XWK 06/17/22 06/17/22 History mcg (50,000 unit) capsule furosemide 40 mg tablet 40 mg PO BID 06/17/22 06/17/22 History hydralazine 50 mg tablet 50 mg PO TID 06/17/22 06/17/22 History isosorbide mononitrate 30 mg 30 mg PO QAM 06/17/22 06/17/22 History tablet,extended release 24 hr metoprolol tartrate 50 mg tablet 50 mg PO BID 06/17/22 06/17/22 History mirtazapine 45 mg tablet 45 mg PO HS 06/17/22 06/17/22 History potassium chloride 20 mEq 40 meq PO QAM 06/17/22 06/17/22 History tablet,extended release(part/cryst) (Klor-Con M) sertraline 100 mg tablet 100 mg PO DAILY 06/17/22 06/17/22 History spironolactone 25 mg tablet 12.5 mg PO DAILY 06/17/22 06/17/22 History Patient History Medical History Alcohol abuse Depression Dyslipidemia HTN (hypertension) Social History Smoking Status: Never smoker Second Hand Exposure: No; Do You Dip or Chew Tobacco: Yes; Tobacco Cessation Education Requested by Patient: No Hx Alcohol Use: No Hx Substance Use: No Preferred Language: Wallisian Communication Ability: Effective English Division Chair Required: No Beliefs That Will Affect Care: None marital status: Single Current Living Situation: Alone Current Living Situation Comment: Lives with his brother Kaz. How many Children do You have: 0 Other Information That Helps Us Care for You: No Feels Safe at Home: Yes Safety Concerns: Feels Safe At This Time Assistive Devices: None Review of Systems Review of Systems: All systems reviewed & are unremarkable except as noted in HPI & below Physical Exam Constitutional: WD/WN, vitals as above no acute distress Eyes: PERRL, conjunctivae normal, anicteric sclerae Neck: normal visual inspection and trachea midline Respiratory: normal respiratory effort, lungs clear to auscultation no cou gh Auscultation: no rales, no rhonchi and no wheezes Cardiovascular: Rate/Rhythm: regular rate and regular rhythm Heart Sounds: normal S1 and normal S2; no murmur Vessels: no JVD Extremities: + edema (+1-2 BLLE pitting edema to shins ) Gastrointestinal (Abdomen): normal bowel sounds, soft, nontender, no hepatosplenomegaly Skin: no rashes, warm and dry Psychiatric: A+Ox3, euthymic affect Results & Data ([facility]) Vital Signs (Past 12 Hours) Vital Signs Temp Pulse Pulse Resp BP Pulse Ox O2 Del Method 06/18/22 06:57 36.9 C 74 18 149/92 H 96 Nasal Cannula 06/18/22 03:50 36.5 C 71 18 158/108 H 99 Nasal Cannula 06/18/22 00:00 77 06/17/22 20:35 36.3 C L 87 17 180/123 H 97 Nasal Cannula 06/17/22 23:33 Nasal Cannula 06/17/22 23:33 36.3 C L 87 17 180/123 H 97 Nasal Cannula 06/17/22 22:30 78 20 167/118 H 99 Room Air 06/17/22 21:42 79 20 151/114 H 98 Nasal Cannula 06/17/22 20:55 79 20 165/123 H 98 Nasal Cannula O2 Flow Rate 06/18/22 06:57 2 06/18/22 03:50 2 06/18/22 00:00 06/17/22 20:35 2 06/17/22 23:33 2 06/17/22 23:33 2 06/17/22 22:30 06/17/22 21:42 2 06/17/22 20:55 2 Laboratory Results Cardiac Enzymes 06/17/22 06/17/22 06/17/22 Range/Units 17:45 17:45 20:15 AST 34 (13-39) U/L Troponin I High Sens 102.1 H* 116.0 H* (0-20) pg/ml B-Natriuretic Peptide 4047 H (0-100) pg/ml 06/18/22 Range/Units 05:34 AST (13-39) U/L Troponin I High Sens 82.9 H* D (0-20) pg/ml B-Natriuretic Peptide (0-100) pg/ml Coagulation 06/17/22 06/17/22 Range/Units 17:45 17:45 PT 11.1 (9.0-12.0) Seconds APTT 23.6 (21.0-31.0) Seconds B-Natriuretic Peptide 4047 H (0-100) pg/ml CBC 06/17/22 06/18/22 Range/Units 17:45 05:34 WBC 11.10 H 9.52 (4.8-10.8) K/ul RBC 4.07 L 3.57 L (4.70-6.10) M/uL Hgb 12.9 L 11.3 L (14.0-18.0) g/dl Hct 36.4 L 32.3 L (42.0-52.0) % Plt Count 340 267 (130-400) K/uL Neut # (Auto) 9.52 H 7.59 H (1.40-6.50) K/uL Lymph # (Auto) 0.83 L 0.94 L (1.2-3.4) K/uL Baker # (Auto) 0.63 H 0.80 H (0.11-0.59) K/uL Eos # (Auto) 0.02 0.10 (0-0.50) K/uL Baso # (Auto) 0.06 0.06 (0-0.2) K/uL Comprehensive Metabolic Panel 06/17/22 06/18/22 Range/Units 17:45 05:34 Sodium 139 138 (136-145) mmol/L Potassium 3.4 L 3.7 (3.5-5.1) mmol/L Chloride 105 105 (98-107) mmol/L Carbon Dioxide 24 25 (21-32) mmol/L BUN 42 H 41 H (6-23) mg/dl Creatinine 2.30 H 2.25 H (0.6-1.4) mg/dl Glucose 98 92 (70-99(Fasting)) mg/dl Calcium 8.6 8.0 L (8.5-10.1) mg/dl AST 34 (13-39) U/L ALT 43 (7-52) U/L Alkaline Phosphatase 108 H (34-104) U/L Total Protein 6.1 (6.0-8.3) gm/dl Albumin 3.8 (3.4-5.0) gm/dl Intake and Output 06/17/22 06/18/22 06/18/22 22:59 06:59 14:59 Intake Total 18.65 / 318.65 300 / 318.65 Output Total 800 / 800 600 / 600 Balance -781.35 / -481.35 300 / -481.35 -600 / -600 Intake: IV 18.65 / 18.65 Nitroglycerin/D5w 100Mcg/ml 250 18.65 / 18.65 ml @ 0 MCG/MIN IV .Q0M [facility] Rx# :[id number] Oral 300 / 300 Output: Urine 800 / 800 600 / 600 Other: Weight 60 kg 60.5 kg Weight Measurement Method Built in [facility] Built in [facility]
[2022-06-18] MEDS ORDERED: amLODIPine BESYLATE 5 MG TAB PO SCH ×2 (09:00→21:00)
[2022-06-18] MEDS ORDERED: POTASSIUM CHLORIDE CRTAB 20 MEQ TABCR PO SCH (09:00)
[2022-06-18] MEDS ORDERED: ALBUMIN 25% 12.5 GM/50 ML VIAL IV SCH (09:00)
[2022-06-18] MEDS: FUROSEMIDE 40 MG/4 ML VIAL IV SCH ×2 (09:24→17:37)
[2022-06-18] MEDS: ISOSORBIDE MONO EXTENDED REL 30 MG TABCR PO SCH (10:13)
--- NOTE | 2022-06-18 11:05 | Electrocardiogram Report ---
Test Reason : Blood Pressure : / mmHG Vent. Rate : 102 BPM Atrial Rate : 102 BPM P-R Int : 130 ms QRS Dur : 082 ms QT Int : 330 ms P-R-T Axes : 051 007 222 degrees QTc Int : 430 ms Sinus tachycardia Possible Left atrial enlargement Left ventricular hypertrophy with repolarization abnormality Abnormal ECG When compared with ECG of 10-JAN-2018 06:57, ST no longer depressed in Anterior leads T wave inversion no longer evident in Anterior leads Confirmed by Gagan Bonilla ([id number]) on 06/18/2022 11:04:53 AM Referred By: REFERRED SELF Confirmed By:Donald Bonilla
--- NOTE | 2022-06-18 11:28 | Electrocardiogram Report ---
Test Reason : Blood Pressure : / mmHG Vent. Rate : 071 BPM Atrial Rate : 071 BPM P-R Int : 120 ms QRS Dur : 090 ms QT Int : 454 ms P-R-T Axes : 052 017 228 degrees QTc Int : 493 ms Normal sinus rhythm Left ventricular hypertrophy with repolarization abnormality Prolonged QT Abnormal ECG When compared with ECG of 17-JUN-2022 17:03, (unconfirmed) Non-specific change in ST segment in Anterior leads QT has lengthened Confirmed by Gagan Bonilla ([id number]) on 06/18/2022 11:28:14 AM Referred By: REFERRED SELF Confirmed By:Donald Bonilla
--- NOTE | 2022-06-18 13:16 | Hospitalist Progress Note ---
Date of Service June 18, 2022 Assessment & Plan (1) Hypertensive crisis: (2) Acute systolic heart failure: (3) Noncompliance with medication regimen: (4) Demand ischemia: (5) Depression: (6) Aortic stenosis: (7) CKD (chronic kidney disease), stage III: Plan 57 yo M with HTN and h/o reduced EF presents with hypertensive crisis as a result of medical noncompliance. Metoprolol succinate for GDMT with imdur 30mg added Cont Norvasc per home regimen. Considering restart aldactone, but holding for now and replete K while utilizing Lasix IV Known aortic stenosis, noted on echo. Defer alf management to cardiology Renal us reveals evidence of chronic disease Will need to follow with nephrology as outpatient for management of CKD related to HTN-consulting them inpatient. Baseline creatinine is around 1.8, now 2.3, may be a new baseline as this has not been checked in two years per outpatient records. CKD likely related to uncontrolled HTN; along the same lines he has diastolic dysfunction seen on echo Will renally dose meds as needed and monitor electrolytes daily. Cont diuresis and await further cardiology recommendations. Full Code DVT proph: heparin Dispo-uncertain, pending PT/OT recommendations. Sophia Mauro DO [facility] Hospitalist Admission and Anticipated Discharge Date Admission Date: June 17, 2022 Subjective 57-year-old man admitted with worsening shortness of breath and acute heart failure Reports his chest discomfort is improved Denies any weight loss or weight gain recently Reports orthopnea over the last couple of weeks Reports discomfort and decreased ability to exert himself secondary to shortness of breath and chest discomfort Has a history of reduced ejection fraction in the past. Reports noncompliance with medical therapies simply because he was tired of taking pills Has a friend at bedside who helps to care for him, patient does not drive and neither does his friend. Reports some obstacles with obtaining medications from pharmacies and has never considered mail order pharmacy as an option which we discussed. Blood pressure is improved. Review of Systems Review of Systems: All systems reviewed negative except as indicated above Physical Exam Physical Exam: CONSTITUTIONAL: thin with muscle wasting along his back and extremities, vitals as above, generally well-appearing EYES: normal conjunctivae, no scleral icterus ENT: external ear and nose normal, MMM NECK: trachea midline, RESPIRATORY: clear to auscultation bilaterally, no crackles, rales or wheezes, normal respiratory effort CARDIOVASCULAR: regular rate and rhythm, S1 and 2 heard without murmurs, gallops or rubs, no JVD, no peripheral edema CHEST: inspection of chest was normal GASTROINTESTINAL: soft, nontender, ND, no guarding MUSCULOSKELETAL: strength 5/5 throughout, head is normocephalic and atraumatic SKIN: warm and dry NEUROLOGIC: CN 2-12 grossly intact, no sensory deficit, normal cognition, normal speech, no tremor PSYCHIATRIC: alert cooperative and oriented to person, place and time. Euthymic mood, makes good eye contact, language grossly intact, recent and remote memory grossly intact. Results & Data Results & Data ([facility]) Vital Signs (Past 12 Hours) Vital Signs Temp Pulse Pulse Resp BP Pulse Ox O2 Del Method 06/18/22 11:50 152/92 H 06/18/22 11:27 36.8 C 78 20 156/106 H Room Air 06/18/22 11:00 72 06/18/22 06:57 36.9 C 74 18 149/92 H 96 Nasal Cannula 06/18/22 03:50 36.5 C 71 18 158/108 H 99 Nasal Cannula O2 Flow Rate 06/18/22 11:50 06/18/22 11:27 06/18/22 11:00 06/18/22 06:57 2 06/18/22 03:50 2 Laboratory Results Short CBC 06/17/22 06/18/22 Range/Units 17:45 05:34 WBC 11.10 H 9.52 (4.8-10.8) K/ul Hgb 12.9 L 11.3 L (14.0-18.0) g/dl Hct 36.4 L 32.3 L (42.0-52.0) % Plt Count 340 267 (130-400) K/uL BMP 06/17/22 06/18/22 17:45 05:34 Sodium 139 138 Potassium 3.4 L 3.7 Chloride 105 105 Carbon Dioxide 24 25 BUN 42 H 41 H Creatinine 2.30 H 2.25 H Glucose 98 92 Calcium 8.6 8.0 L Liver Function 06/17/22 Range/Units 17:45 Total Bilirubin 0.9 (0.2-1.0) mg/dl AST 34 (13-39) U/L ALT 43 (7-52) U/L Alkaline Phosphatase 108 H (34-104) U/L Albumin 3.8 (3.4-5.0) gm/dl Urine 06/17/22 Range/Units 20:50 Urine Color Yellow Urine Appearance Clear (Clear) Urine pH 7.0 (4.5-7.5) Ur Specific [place] 1.006 (1.000-1.030) Urine Protein 2+ H (Negative) Urine Glucose (UA) Negative (Negative) Diagnostic Findings Renal Ultrasound 06/18/22 00:00 US renal/blad retro comp CLINICAL HISTORY: renal failure TECHNIQUE: Multiple sonographic real-time images of the kidneys and bladder were obtained. COMPARISON: Comparison is made to renal ultrasound 01/10/2018 FINDINGS: The right kidney measures 9.7 cm in length, and the left kidney measures 9.2 cm in length. The right renal cortex is diffusely echogenic in appearance with diffuse cortical thinning. No hydronephrosis is identified. Parapelvic cyst is noted. No perinephric fluid collection is seen. The left renal cortex is diffusely echogenic in appearance, with diffuse cortical thinning. No hydronephrosis is identified. A simple cyst is seen measuring 1.4 x 1.6 x 1.7 cm. No perinephric fluid collection is seen. The bladder is partially distended. Bilateral jets are seen. IMPRESSION: Echogenic kidneys bilaterally compatible with chronic medical renal disease, slightly worsened from prior exam. Bilateral cysts are seen as above. ACT 112: Negative or not required by law. Electronically signed by: Arturo Menezes M.D. 06/18/2022 2:57 PM Medications Administered Current Inpatient Medications Acetaminophen (Acetaminophen 325 Mg Tab) 650 mg PO Q4H PRN PRN Reason: Pain or Fever Stop: 07/17/22 23:32 Last Admin: 06/18/22 14:31 Dose: 650 mg Amlodipine Besylate (Amlodipine Besylate 5 Mg Tab) 5 mg PO HS DANIEL Stop: 07/18/22 20:59 Furosemide (Furosemide 40 Mg/4 Ml Vial) 60 mg IV [id number] DANIEL Stop: 06/18/22 17:01 Last Admin: 06/18/22 09:24 Dose: 60 mg Heparin Sodium (Porcine) (Heparin Sod 5,000 Unit/0.5 Ml Vial) 5,000 units SQ Q8H DANIEL Stop: 07/18/22 00:00 Last Admin: 06/18/22 09:22 Dose: 5,000 units Promethazine HCl 6.25 mg/ (Sodium Chloride) 50.25 mls @ 201 mls/hr IV Q6H PRN PRN Reason: Nausea And Vomiting Stop: 07/17/22 23:32 Isosorbide Mononitrate (Isosorbide Stewart Extended Rel 30 Mg Tabcr) [facility] [place] Stop: 07/18/22 09:44 Last Admin: 06/18/22 10:13 Dose: 30 mg Lorazepam (Lorazepam 0.5 Mg Tab) 0.25 mg PO TID PRN PRN Reason: Anxiety Stop: 07/17/22 23:32 Metoprolol Succinate (Metoprolol Succ 50mg Ext Rel Tab) 50 mg PO [facility] Stop: 07/19/22 08:59 Metoprolol Tartrate (Metoprolol Tartrate 25 Mg Tab) 25 mg PO BID [facility] Stop: 06/18/22 21:01 Nitroglycerin (Nitroglycerin Sl 0.4 Mg/Tab Tab) 0.4 mg SL Q5M PRN PRN Reason: Chest Pain Stop: 07/17/22 23:32 Potassium Chloride (Potassium Chloride Crtab 20 Meq Tabcr) 20 meq PO BID [facility] Stop: 07/18/22 08:59 Last Admin: 06/18/22 09:26 Dose: 20 meq
[2022-06-18] MEDS: ACETAMINOPHEN 325 MG TAB PO PRN (14:31)
--- NOTE | 2022-06-18 14:58 | Ultrasound Report ---
US renal/blad retro comp CLINICAL HISTORY: renal failure TECHNIQUE: Multiple sonographic real-time images of the kidneys and bladder were obtained. COMPARISON: Comparison is made to renal ultrasound 01/10/2018 FINDINGS: The right kidney measures 9.7 cm in length, and the left kidney measures 9.2 cm in length. The right renal cortex is diffusely echogenic in appearance with diffuse cortical thinning. No hydron ephrosis is identified. Parapelvic cyst is noted. No perinephric fluid collection is seen. The left renal cortex is diffusely echogenic in appearance, with diffuse cortical thinning. No hydron ephrosis is identified. A simple cyst is seen measuring 1.4 x 1.6 x 1.7 cm. No perinephric fluid col lection is seen. The bladder is partially distended. Bilateral jets are seen. IMPRESSION: Echogenic kidneys bilaterally compatible with chronic medical renal disease, slightly worsened from p rior exam. Bilateral cysts are seen as above. ACT 112: Negative or not required by law. Electronically signed by: Arturo Menezes M.D. 06/18/2022 2:57 PM
[2022-06-18] MEDS ORDERED: POTASSIUM CHLORIDE CRTAB 20 MEQ TABCR PO ONE (17:14)
[2022-06-18] MEDS ORDERED: METOPROLOL TARTRATE 25 MG TAB PO SCH (21:00)
[2022-06-19] MEDS: METOPROLOL SUCC 50MG EXT REL TAB PO SCH (03:28)
[2022-06-19 06:57] LABS: Calcium 8.1 mg/dl (8.5-10.1); Creatinine Clr Calc Pharmacy 26.9 ml/min; Est GFR (African American) 32.2 ml/min; Est GFR (Non-African American) 27.7 ml/min; Potassium 3.5 mmol/L (3.5-5.1)
--- NOTE | 2022-06-19 07:35 | Cardiology Progress Note ---
Date of Service June 19, 2022 Assessment & Plan (1) Combined systolic and diastolic congestive heart failure: (2) Decompensated heart failure: (3) Hypertensive crisis: (4) Elevated troponin: Plan 57-year-old male diagnosed with hypertensive crisis and acute on chronic decomp ensated CHF secondary to medication noncompliance. Patient carries a history of HFrEF of unknown etiology with improvement in LVEF in 2019. High-sensitivity troponin elevated but trending downward, likely in the setting of TISHA superimposed on CKD and hypertensive crisis. EKG without acute changes suggestive of ACS. Per outpatient records from 2020 patient was formally on hydralazine 50 mg 3 times daily, Aldactone 12.5 mg daily, Norvasc 5 mg daily, Imdur 30 mg daily, metoprolol tartrate 50 mg twice daily, and Lasix 40 mg twice daily. Recommendations: 1. Continue metoprolol succinate 50 mg daily for benefit of GDMT 2. Continue Imdur 30 mg daily, Add hydralazine 25 mg TID- will likely need to increase to 50 mg TID. 3. Continue Norvasc 5 mg daily, switched to am dosing. Future considerations on increasing to 10 mg daily- lower extremity edema resolved. 4. Worsening renal dysfunction. Nephrology consulted, appreciate input. Continue IV Lasix diuresis per nephrology. Ultimately, patient may benefit from restarting Aldactone, however given his renal dysfunction will hold off. Supplement potassium for a goal of 4.0. 5. There is a high likelihood that patient will remain noncompliant with medications should the regimen be too complex. Consider mail order pharmacy vs pill packs. Case discussed with Dr. Rdz-- will follow. Admission and Anticipated Discharge Date Admission Date: June 17, 2022 Supervising Physician Co-Signing Physician Notes I have reviewed the advanced practitioner documentation and agree. I saw and evaluated the patient on date of service referenced in note and have performed the following medically appropriate history and/or exam: I had a lengthy conversation with the patient in terms of his untreated BP and end organ damage including reduced LV systolic function and renal failure. The need for medication compliance reinforced. BP improving but still not at goal, med changes as above. Given lack of symptoms and previous hx of NICM due to uncontrolled hypertension, will hold off ischemic workup for now. Continue to monitor on tele. Subjective 57-year-old male diagnosed with hypertensive crisis and acute on chronic decompensated CHF secondary to medication noncompliance. Patient carries a history of HFrEF of unknown etiology with improvement in LVEF (55-59%), 2019. 06/18: Blood pressures remain elevated but patient was asymptomatic. Metoprolol tartrate transition to metoprolol succinate 50 mg daily. Norvasc 5 mg daily continue Imdur 30 mg daily started Echo: LVEF moderately reduced at 35 to 40% with moderate global hypokinesis. Grade 2 diastolic dysfunction. Moderate aortic sclerosis without stenosis. Moderate TR. Small circumferential pericardial effusion. 06/19: Blood pressures remain elevated within the range of 150-160 systolic Tele: SR 60-70s Labs: Ongoing renal dysfunction- scr (2.3>>2.25>>2.48) Renal ultrasound: Echogenic kidneys bilaterally compatible with chronic medical renal disease, slightly worsened from prior exam Nephrology consulted- "Agreed with holding HEATHER/ARB and refraining from Aldactone- will follow up as an outpatient. Continue IV lasix and K supplementation" Upon entrance into the room patient sitting on the edge of the bed. Just worked with PT- initial BP prior to activty was 150 sbp, after 1 lap elevated to 170s. No symptoms- denies chest pain, sob, or palpitations. Mild ATWOOD occasionally. Notes improvement in his leg edema. Review of Systems Review of Systems: All systems reviewed & are unremarkable except as noted in HPI & below Physical Exam Constitutional: WD/WN, vitals as above no acute distress Eyes: PERRL, conjunctivae normal, anicteric sclerae Neck: normal visual inspection and trachea midline Respiratory: normal respiratory effort, lungs clear to auscultation no cough Auscultation: no rales, no rhonchi and no wheezes Cardiovascular: Rate/Rhythm: regular rate and regular rhythm Heart Sounds: normal S1 and normal S2; no murmur Vessels: no JVD Extremities: no edema Gastrointestinal (Abdomen): normal bowel sounds, soft, nontender, no hepatosplenomegaly Skin: no rashes, warm and dry Psychiatric: A+Ox3, euthymic affect Results & Data ([facility] [place]) Vital Signs (Past 12 Hours) Vital Signs Temp Pulse Resp BP Pulse Ox Pulse Ox O2 Del Method 06/19/22 07:15 36.6 C 65 16 160/95 H 99 Nasal Cannula 06/19/22 03:11 36.7 C 69 14 163/101 H 98 Nasal Cannula 06/18/22 23:03 98 06/18/22 22:00 36.6 C 68 17 155/92 H 98 Room Air 06/18/22 19:30 36.6 C 72 17 154/102 H 97 Nasal Cannula O2 Del Method O2 Flow Rate O2 Flow Rate 06/19/22 07:15 2 06/19/22 03:11 2 06/18/22 23:03 Nasal Cannula 2 06/18/22 22:00 06/18/22 19:30 2 Laboratory Results Comprehensive Metabolic Panel 06/19/22 Range/Units 06:03 Sodium 137 (136-145) mmol/L Potassium 3.5 (3.5-5.1) mmol/L Chloride 102 (98-107) mmol/L Carbon Dioxide 28 (21-32) mmol/L BUN 47 H (6-23) mg/dl Creatinine 2.48 H (0.6-1.4) mg/dl Glucose 93 (70-99(Fasting)) mg/dl Calcium 8.1 L (8.5-10.1) mg/dl Intake and Output 06/18/22 06/19/22 06/19/22 22:59 06:59 14:59 Intake Total 360 / 410.0 Output Total 2750 / 4950 900 / 4950 Balance -2390 / -4540.0 -900 / -4540.0 Intake: Oral 360 / 360 Output: Urine 2750 / 4950 900 / 4950 Other: Other Intake Source sips Weight 57.878 kg Weight Measurement Method Built in [facility]
[2022-06-19] MEDS: hydrALAZINE HCL 25 MG TAB PO SCH ×3 (08:31→19:50)
[2022-06-19] MEDS: amLODIPine BESYLATE 5 MG TAB PO SCH (08:31)
[2022-06-19] MEDS: ISOSORBIDE MONO EXTENDED REL 30 MG TABCR PO SCH (08:32)
[2022-06-19] MEDS: HEPARIN SOD 5,000 UNIT/0.5 ML VIAL SQ SCH ×3 (08:32→19:51)
[2022-06-19] MEDS ORDERED: METOPROLOL SUCC 50MG EXT REL TAB PO SCH (09:00)
[2022-06-19] MEDS ORDERED: FUROSEMIDE 40 MG/4 ML VIAL IV SCH (09:00)
--- NOTE | 2022-06-19 09:06 | Nephrology Consultation ---
Date of Consultation June 19, 2022 Assessment & Plan (1) CKD (chronic kidney disease), stage III: - last seen by Nephrology in 2018( Dr Valera) when his baseline was in late 1.0' and early 2.0's,Previous to this Baseline it was 1.2-1.3 in 2016; no interval labs since 2018. ua w 2+ protein in setting of uncontrolled HTN -Most recent USS shows Echogenic kidneys bilaterally, compatible with CKD with b ilateral cyst, R- 9.7 , l-9.2 cm - Most likley etiology renal vascular disease, superimposed with Cardio renal pathology. Slowly progressive.Given the fact that he has been non compliant with medication and follow up, with episodes of TISHA and uncontrolled HTN,he is high risk of progression to ESRD. Present Tisha likley 2/ hemodynamic instability and fluid overload.His present baseline Cr is unknown , but this is likley in early to mid 2.0's.this will fluctuate as per his Volume status. I would personally see him comfortable than a good Creatinine number. -daily bmp -strict I/O, daily wts >avoid nephrotoxins;defer starting any ACEI/ARB for now >focus on bp control, agree with Cardiology recs . -will recheck uacm, prot/creat ratio once his functions stabilize. HE will need to be followed by Nephrology post discharge( non urgent in 2-3 weeks) (2) Combined systolic and diastolic congestive heart failure: Agree with cardiology , - continue with Iv Diuresis with K Supplements and hold [place]. - daily weight, prefebly on the same scale. (3) Hypertensive urgency: - SBP noted to be 210s upon arrival at the ER. - Bettter controlled now ,on Amlodipine,BB , ISMN,Hydralazine and lasix, Will defer starting on ACR/ARB/MRB for now. History of Present Illness Attending Physician: Sophia Mauro, History of Present Illness 57 yr old with Medical history significant for chronic diastolic heart failure (EF 55 to 59%, TTE 2019), valvular heart disease (mild MR/TR ), HTN, mood disorder, CKD (Unkbown baseline creatinine, but likleyin late 1.0' to earlt 2.0's.), past alcohol/tobacco abuse, medication noncompliance.CKD 3 with Scr late 1 .0s to early 2.0s atleast since 2018no intervening results , even befo re this his Scr were fluctuat , a/w Scr 2.3,Egfr between 30-40 since 2018. U/a- 2+ Protenuria, normal RBCS.-Most recent USS shows Echogenic kidneys bilaterally, compatible with CKD with bilateral cyst, R- 9.7 , l-9.2 cm He was a/w headaches, shortness of breath, and chest discomfort. Symptoms pro gressively got worse over the last 4-6 weeks. He also noted Orthopnea, PND, and lower extremity edema.Systolic blood pressure was in the 210s upon arrival. Patient had self discontinued all of his medications aprox 6-9 mos ago- stated he was "sick of taking them all".Labs were significant for scr 2.3.Chest x-ray was significant for Cardiomegaly with evidence of CHF, layering pleural effusions with dependent consolidation, Echo showed Moderately reduced EF- 35- 40%, Moderate global hypokinesia, Grade 2 diastolic dysfunction, with small pericardial effusion. Patient was started on metoprolol tartrate 25 mg twice daily and amlodipine 5 mg daily with Lasix 60 mg IV twice daily. Lower extremity edema has improved since restarting Lasix, notes improvement with orthopnea.UOP has been excellent. Allergies Allergy/AdvReac Type Severity Reaction Status Date / Time No Known Allergies Allergy Unknown Verified 06/17/22 21:17 Home Medications Medication Instructions Recorded Confirmed Type amlodipine 5 mg tablet 5 mg PO QAM 06/17/22 06/17/22 History cholecalciferol (vitamin D3) 1,250 1,250 mcg PO 2XWK 06/17/22 06/17/22 History mcg (50,000 unit) capsule furosemide 40 mg tablet 40 mg PO BID 06/17/22 06/17/22 History hydralazine 50 mg tablet 50 mg PO TID 06/17/22 06/17/22 History isosorbide mononitrate 30 mg 30 mg PO QAM 06/17/22 06/17/22 History tablet,extended release 24 hr metoprolol tartrate 50 mg tablet 50 mg PO BID 06/17/22 06/17/22 History mirtazapine 45 mg tablet 45 mg PO HS 06/17/22 06/17/22 History potassium chloride 20 mEq 40 meq PO QAM 06/17/22 06/17/22 History tablet,extended release(part/cryst) (Klor-Con M) sertraline 100 mg tablet 100 mg PO DAILY 06/17/22 06/17/22 History spironolactone 25 mg tablet 12.5 mg PO DAILY 06/17/22 06/17/22 History Patient History Medical History Alcohol abuse Depression Dyslipidemia HTN (hypertension) Social History Smoking Status: Never smoker Second Hand Exposure: No; Do You Dip or Chew Tobacco: Yes; Tobacco Cessation Education Requested by Patient: No Hx Alcohol Use: No Hx Substance Use: No Preferred Language: Peruvian Communication Ability: Effective Internet Media Planner Required: No Beliefs That Will Affect Care: None marital status: Single Current Living Situation: Alone Current Living Situation Comment: Lives with his brother Kaz. How many Children do You have: 0 Other Information That Helps Us Care for You: No Feels Safe at Home: Yes Safety Concerns: Feels Safe At This Time Assistive Devices: None Review of Systems Review of Systems: All systems reviewed & are unremarkable except as noted in HPI & below Physical Exam Physical Exam: CONSTITUTIONAL: Comfortable. RESPIRATORY: clear to auscultation bilaterally, no crackles, rales or wheezes, normal respiratory effort CARDIOVASCULAR: regular rate and rhythm, Systolic murner, no JVD, no peripheral edema GASTROINTESTINAL: soft, nontender, ND, no guardingatic SKIN: warm and dry NEUROLOGIC:Grossly intact, no sensory deficit EXTERMITIES- 1+Edema Results & Data ([facility]) Vital Signs (Past 12 Hours) Vital Signs Temp Pulse Resp BP Pulse Ox Pulse Ox O2 Del Method 06/19/22 07:15 36.6 C 65 16 160/95 H 99 Nasal Cannula 06/19/22 03:11 36.7 C 69 14 163/101 H 98 Nasal Cannula 06/18/22 23:03 98 06/18/22 22:00 36.6 C 68 17 155/92 H 98 Room Air O2 Del Method O2 Flow Rate O2 Flow Rate 06/19/22 07:15 2 06/19/22 03:11 2 06/18/22 23:03 Nasal Cannula 2 06/18/22 22:00 Laboratory Results 06/18/22 05:34 06/19/22 06:03
[2022-06-19] MEDS ORDERED: POTASSIUM CHLORIDE CRTAB 20 MEQ TABCR PO STA (09:17)
--- NOTE | 2022-06-19 13:26 | Hospitalist Progress Note ---
Date of Service June 19, 2022 Assessment & Plan (1) Hypertensive crisis: (2) Acute systolic heart failure: (3) Noncompliance with medication regimen: (4) Demand ischemia: (5) Depression: (6) Aortic stenosis: (7) CKD (chronic kidney disease), stage III: Plan 57 yo M with HTN and h/o reduced EF presents with hypertensive crisis as a result of medical noncompliance. Improved with diuretic therapy- 4.5L net out overnight. Metoprolol succinate for GDMT with imdur 30mg added Cont Norvasc per home regimen. Considering restart aldactone, but holding for now with current creatinine per Nephro, and replete K while utilizing Lasix IV Known aortic stenosis, noted on echo. 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 Baseline creatinine is around 1.8, now 2.3, may be a new baseline as this has not been checked in two years per outpatient records. CKD likely related to uncontrolled HTN; along the same lines he has diastolic dysfunction seen on echo Appreciate nephro involvement. Will renally dose meds as needed and monitor electrolytes daily. Cont diuresis with lasix 40mg IV daily and await further cardiology recommendations. Full Code DVT proph: heparin Dispo-uncertain, pending PT/OT recommendations. Sophia Mauro DO [facility] Hospitalist Admission and Anticipated Discharge Date Admission Date: June 17, 2022 Subjective 57-year-old man admitted with worsening shortness of breath and acute heart failure Reports his chest discomfort is improved orthopnea resolved. easier to exert himself but not getting out of bed much BP improved -4.5L out net overnight Review of Systems Review of Systems: All systems reviewed negative except as indicated above Physical Exam Physical Exam: CONSTITUTIONAL: thin with muscle wasting along his back and extremities, vitals as above, generally well-appearing EYES: normal conjunctivae, no scleral icterus ENT: external ear and nose normal, MMM NECK: trachea midline, RESPIRATORY: clear to auscultation bilaterally, no crackles, rales or wheezes, normal respiratory effort CARDIOVASCULAR: regular rate and rhythm, S1 and 2 heard without murmurs, gallops or rubs, no JVD, no peripheral edema CHEST: inspection of chest was normal GASTROINTESTINAL: soft, nontender, ND, no guarding MUSCULOSKELETAL: strength 5/5 throughout, head is normocephalic and atraumatic SKIN: warm and dry NEUROLOGIC: CN 2-12 grossly intact, no sensory deficit, normal cognition, normal speech, no tremor PSYCHIATRIC: alert cooperative and oriented to person, place and time. Euthymic mood, makes good eye contact, language grossly intact, recent and todd te memory grossly intact. Results & Data Results & Data ([facility]) Vital Signs (Past 12 Hours) Vital Signs Temp Pulse Pulse Pulse Resp BP Pulse Ox 06/19/22 12:00 36.4 C L 67 16 157/90 H 95 06/19/22 09:28 68 06/19/22 09:28 06/19/22 07:15 36.6 C 65 16 160/95 H 99 06/19/22 03:11 36.7 C 69 14 163/101 H 98 O2 Del Method O2 Flow Rate 06/19/22 12:00 Room Air 06/19/22 09:28 06/19/22 09:28 Room Air 06/19/22 07:15 Nasal Cannula 2 06/19/22 03:11 Nasal Cannula 2 Laboratory Results [facility] 06/19/22 06:03 Sodium 137 Potassium 3.5 Chloride 102 Carbon Dioxide 28 BUN 47 H Creatinine 2.48 H Glucose 93 Calcium 8.1 L Medications Administered Current Inpatient Medications Acetaminophen (Acetaminophen 325 Mg Tab) 650 mg PO Q4H PRN PRN Reason: Pain or Fever Stop: 07/17/22 23:32 Last Admin: 06/18/22 14:31 Dose: 650 mg Amlodipine Besylate (Amlodipine Besylate 5 Mg Tab) 5 mg PO QAM [facility] Stop: 07/19/22 08:59 Last Admin: 06/19/22 08:31 Dose: 5 mg Furosemide (Furosemide 40 Mg/4 Ml Vial) 40 mg IV DAILY [facility] Stop: 07/19/22 08:59 Heparin Sodium (Porcine) (Heparin Sod 5,000 Unit/0.5 Ml Vial) 5,000 units SQ Q8H [facility] Stop: 07/18/22 00:00 Last Admin: 06/19/22 08:32 Dose: 5,000 units Hydralazine HCl (Hydralazine Hcl 25 Mg Tab) 25 mg PO TID [facility]EL Stop: 07/19/22 08:59 Last Admin: 02/24/23 13:20 Dose: 25 mg Promethazine HCl 6.25 mg/ (Sodium Chloride) 50.25 mls @ 201 mls/hr IV Q6H PRN PRN Reason: Nausea And Vomiting Stop: 07/17/22 23:32 Isosorbide Mononitrate (Isosorbide [place] Extended Rel 30 Mg Tabcr) 30 mg PO [facility] Stop: 07/18/22 09:44 Last Admin: 06/19/22 08:32 Dose: 30 mg Lorazepam (Lorazepam 0.5 Mg Tab) 0.25 mg PO TID PRN PRN Reason: Anxiety Stop: 07/17/22 23:32 Metoprolol Succinate (Metoprolol Succ 50mg Ext Rel Tab) 50 mg PO [facility] Stop: 07/19/22 03:24 Last Admin: 06/19/22 03:28 Dose: 50 mg Nitroglycerin (Nitroglycerin Sl 0.4 Mg/Tab Tab) 0.4 mg SL Q5M PRN PRN Reason: Chest Pain Stop: 07/17/22 23:32
[2022-06-19] MEDS: ACETAMINOPHEN 325 MG TAB PO PRN ×3 (15:05→23:34)
[2022-06-19] MEDS: LORazepam 0.5 MG TAB PO PRN (23:33)
[2022-06-20 05:58] LABS: Hematocrit (blood only) 33.3 % (42.0-52.0); Mean Corpuscular Hemoglobin 31.7 pg (25.0-34.0); Mean Corpuscular Volume 88.1 fL (80.0-100.0); Mean Platelet Volume 10.1 fL (9.4-12.4); Platelet Count 267 K/uL (130-400); RDW Coefficient of Variation 12.8 % (11.5-14.5); RDW Standard Deviation 40.8 fL (36.4-46.3); Red Blood Count 3.78 M/uL (4.70-6.10); White Blood Count 6.31 K/ul (4.8-10.8)
[2022-06-20 06:14] LABS: BUN Creatinine Ratio 17.8 (10-20); Calcium 8.4 mg/dl (8.5-10.1); Est GFR (African American) 31.4 ml/min; Est GFR (Non-African American) 27.1 ml/min; Potassium 3.3 mmol/L (3.5-5.1)
[2022-06-20] MEDS ORDERED: POTASSIUM CHLORIDE CRTAB 20 MEQ TABCR PO SCH (07:45)
[2022-06-20] MEDS: HEPARIN SOD 5,000 UNIT/0.5 ML VIAL SQ SCH ×3 (07:58→20:15)
[2022-06-20] MEDS ORDERED: SPIRONOLACTONE 25 MG TAB PO ONE (08:15)
[2022-06-20] MEDS: METOPROLOL SUCC 50MG EXT REL TAB PO SCH (08:36)
[2022-06-20] MEDS: ISOSORBIDE MONO EXTENDED REL 30 MG TABCR PO SCH (08:36)
[2022-06-20] MEDS: hydrALAZINE HCL 25 MG TAB PO SCH (08:37)
[2022-06-20] MEDS: FUROSEMIDE 40 MG TAB PO SCH (08:37)
[2022-06-20] MEDS: amLODIPine BESYLATE 5 MG TAB PO SCH (08:37)
--- NOTE | 2022-06-20 10:45 | Nephrology Progress Note ---
Date of Service June 20, 2022 Assessment & Plan (1) CKD (chronic kidney disease), stage III: Plan: - last seen by Nephrology in 2018( Dr Valera) when his baseline was in late 1.0' and early 2.0's,Previous to this Baseline it was 1.2-1.3 in 2016; no interval labs since 2018. ua w 2+ protein in setting of uncontrolled HTN -Most recent USS shows Echogenic kidneys bilaterally, compatible with CKD with bilateral cyst, R- 9.7 , l-9.2 cm - Most likley etiology renal vascular disease, superimposed with Cardio renal pathology. Slowly progressive.Given the fact that he has been non compliant with medication and follow up, with episodes of TISHA and uncontrolled HTN,he is high risk of progression to ESRD. -daily bmp -strict I/O, daily wts >avoid nephrotoxins;defer starting any ACEI/ARB for now -will recheck uacm, prot/creat ratio once his functions stabilize. HE will need to be followed by Nephrology post discharge( non urgent in 2-3 weeks) (2) Combined systolic and diastolic congestive heart failure: Plan: Agree with cardiology , - continue with Iv Diuresis with K Supplements. - daily weight (3) Hypertensive urgency: Plan: - SBP noted to be 210s upon arrival at the ER. - Better controlled now ,on Amlodipine,BB , ISMN,Hydralazine and lasix, Will add spironolactone 25 mg daily Admission and Anticipated Discharge Date Admission Date: June 17, 2022 Subjective Seen for CKD and hypertension. He feels better today. No shortness of breath. Edema has subsided. Blood pressure still high Review of Systems Review of Systems: All other systems were reviewed and negative except as noted in HPI Physical Exam Physical Exam: General exam: Appears comfortable, no acute distress HEENT: Pupils are equal and reactive to light Neck: No JVD, neck is supple trachea is midline Respiratory system: Clear breath sounds bilaterally. Gastrointestinal: Abdomen is soft, non distended, non tender, bowel sounds are present CVS: Regular rate and rhythm. No murmurs, rubs or gallops Musculoskeletal: No joint or muscle tenderness Extremities: Non tender, no edema, peripheral pulses are present Neuro: Oriented, no tremors, no focal neurological deficits Skin: No rashes Results & Data ([facility]) Vital Signs (Past 12 Hours) Vital Signs Temp Pulse Pulse Resp BP Pulse Ox O2 Del Method 06/20/22 07:44 37.1 C 75 19 170/92 H 97 Room Air 06/20/22 03:32 37.0 C 62 14 165/97 H 97 Room Air 06/19/22 23:25 36.7 C 73 18 171/87 H 97 Room Air
--- NOTE | 2022-06-20 11:21 | Cardiology Progress Note ---
Date of Service June 20, 2022 Assessment & Plan (1) Combined systolic and diastolic congestive heart failure: (2) Decompensated heart failure: (3) Hypertensive crisis: (4) Elevated troponin: Plan The patient remains hypertensive on his current medications. I have increased his hydralazine to 50 mg 3 times daily. Continue to monitor the patient on telemetry. Admission and Anticipated Discharge Date Admission Date: June 17, 2022 Subjective The patient had an uneventful night and has no new cardiac complaints. Review of Systems Review of Systems: Review of Systems: See HPI for pertinent positives. All other 10 point review of systems are negative. Physical Exam Physical Exam: General: no acute distress and stated age Head: normocephalic, no masses, lesions, tenderness or abnormalities Eyes: conjunctiva are pink and non-injected, sclera clear Neck: supple, no adenopathy, no bruits, normal jugular venous pulse, no hepatojugular reflux Chest: normal shape and normal respiratory effort Lungs: clear to auscultation and percussion Cardiac Exam: - regular rate & rhythm, no murmurs gallops or rubs - normal S1, normal S2 Pulses: 2(+) throughout Abdomen: abdomen soft, non-tender, no abnormal masses and no hepatosplenomegaly Musculoskeletal: no gait disturbance, no joint inflammation, no deforming arthritis Extremities: no edema and no cyanosis Neuro: grossly normal exam Results & Data ([facility]) Vital Signs (Past 12 Hours) Vital Signs Temp Pulse Pulse Resp BP Pulse Ox O2 Del Method 06/20/22 07:44 37.1 C 75 19 170/92 H 97 Room Air 06/20/22 03:32 37.0 C 62 14 165/97 H 97 Room Air 06/19/22 23:25 36.7 C 73 18 171/87 H 97 Room Air Laboratory Results Laboratory Results - last 24 hr 06/18/22 06/20/22 06/20/22 05:34 05:27 05:27 WBC 6.31 RBC 3.78 L Hgb 12.0 L Hct 33.3 L MCV 88.1 MCH 31.7 MCHC 36.0 RDW Std Deviation 40.8 RDW Coeff of Juliette 12.8 Plt Count 267 MPV 10.1 Sodium 139 Potassium 3.3 L Chloride 105 Carbon Dioxide 26 Anion Gap 8 BUN 45 H Creatinine 2.53 H Est Cr Clr Drug Dosing 26.0 Est GFR ( Amer) 31.4 Est GFR (Non-Af Amer) 27.1 BUN/Creatinine Ratio 17.8 Glucose 84 Calcium 8.4 L Hepatitis C Ab (EIA) NON-REACTIVE Hep C Ab Signal/Cutoff <0.02 Medications Administered Current Inpatient Medications Acetaminophen (Acetaminophen 325 Mg Tab) 650 mg PO Q4H PRN PRN Reason: Pain or Fever Stop: 07/17/22 23:32 Last Admin: 06/19/22 23:34 Dose: 650 mg Amlodipine Besylate (Amlodipine Besylate 5 Mg Tab) [address] [facility] Stop: 07/19/22 08:59 Last Admin: 06/20/22 08:37 Dose: 5 mg Furosemide (Furosemide 40 Mg Tab) [address] [facility] Stop: 07/20/22 08:59 Last Admin: 06/20/22 08:37 Dose: 40 mg Heparin Sodium (Porcine) (Heparin Sod 5,000 Unit/0.5 Ml Vial) 5,000 units SQ Q8H [facility] Stop: 07/18/22 00:00 Last Admin: 06/20/22 07:58 Dose: 5,000 units Hydralazine HCl (Hydralazine Tab 50 Mg Tab) 50 mg PO TID [facility] Stop: 07/20/22 13:59 Promethazine HCl 6.25 mg/ (Sodium Chloride) 50.25 mls @ 201 mls/hr IV Q6H PRN PRN Reason: Nausea And Vomiting Stop: 07/17/22 23:32 Isosorbide Mononitrate (Isosorbide [place] Extended Rel 30 Mg Tabcr) [address] [facility] Stop: 07/18/22 09:44 Last Admin: 06/20/22 08:36 Dose: 30 mg Lorazepam (Lorazepam 0.5 Mg Tab) 0.25 mg PO TID PRN PRN Reason: Anxiety Stop: 07/17/22 23:32 Last Admin: 06/19/22 23:33 Dose: 0.25 mg Metoprolol Succinate (Metoprolol Succ 50mg Ext Rel Tab) [address] [facility] Stop: 07/19/22 03:24 Last Admin: 06/20/22 08:36 Dose: 50 mg Nitroglycerin (Nitroglycerin Sl 0.4 Mg/Tab Tab) 0.4 mg SL Q5M PRN PRN Reason: Chest Pain Stop: 07/17/22 23:32
[2022-06-20] MEDS: hydrALAZINE TAB 50 MG TAB PO SCH ×2 (14:12→20:14)
--- NOTE | 2022-06-20 14:36 | Hospitalist Progress Note ---
Date of Service June 20, 2022 Assessment & Plan (1) Hypertensive crisis: (2) Acute systolic heart failure: (3) Noncompliance with medication regimen: (4) Demand ischemia: (5) Depression: (6) Aortic stenosis: (7) CKD (chronic kidney disease), stage III: Plan 57 yo M with HTN and h/o reduced EF presents with hypertensive crisis as a result of medical noncompliance. Improved with diuretic therapy and is net negative fluid balance. Metoprolol succinate for GDMT with imdur 30mg added Cont Norvasc per home regimen. Aldactone started per nephrology, Lasix IV converted to PO daily, cont to check replete K as needed during this transition. Known aortic stenosis, noted on echo. 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 Will renally dose meds as needed and monitor electrolytes daily. Additional hydralazine for improved BP control per cardiology today. Full Code DVT proph: heparin Dispo-uncertain, possibly rehab. Sophia Mauro DO [facility] Hospitalist Admission and Anticipated Discharge Date Admission Date: June 17, 2022 Subjective 57-year-old man admitted with worsening shortness of breath and acute heart failure easier to exert himself and he is attempting more physical activity no orthopena or CP. No oxygen needs or SOB Hydralazine increased for BP control Pt anticipates that he will be able to return home As of yesterday, PT is suggesting rehab Review of Systems Review of Systems: All systems reviewed negative except as indicated above Physical Exam Physical Exam: CONSTITUTIONAL: thin with muscle wasting along his back and extremities, vitals as above, generally well-appearing EYES: normal conjunctivae, no scleral icterus ENT: external ear and nose normal, MMM NECK: trachea midline, RESPIRATORY: clear to auscultation bilaterally, no crackles, rales or wheezes, normal respiratory effort CARDIOVASCULAR: regular rate and rhythm, S1 and 2 heard without murmurs, gallops or rubs, no JVD, no peripheral edema CHEST: inspection of chest was normal GASTROINTESTINAL: soft, nontender, ND, no guarding MUSCULOSKELETAL: strength 5/5 throughout, head is normocephalic and atraumatic SKIN: warm and dry NEUROLOGIC: CN 2-12 grossly intact, no sensory deficit, normal cognition, normal speech, no tremor PSYCHIATRIC: alert cooperative and oriented to person, place and time. Euthymic mood, makes good eye contact, language grossly intact, recent and remote memory grossly intact. Results & Data Results & Data ([facility]) Vital Signs (Past 12 Hours) Vital Signs Temp Pulse Pulse Resp BP Pulse Ox O2 Del Method 06/20/22 11:45 37.1 C 75 18 149/96 H 97 Room Air 06/20/22 07:44 37.1 C 75 19 170/92 H 97 Room Air 06/20/22 03:32 37.0 C 62 14 165/97 H 97 Room Air Laboratory Results Short CBC 06/20/22 Range/Units 05:27 WBC 6.31 (4.8-10.8) K/ul Hgb 12.0 L (14.0-18.0) g/dl Hct 33.3 L (42.0-52.0) % Plt Count 267 (130-400) K/uL BMP 06/20/22 05:27 Sodium 139 Potassium 3.3 L Chloride 105 Carbon Dioxide 26 BUN 45 H Creatinine 2.53 H Glucose 84 Calcium 8.4 L Medications Administered Current Inpatient Medications Acetaminophen (Acetaminophen 325 Mg Tab) 650 mg PO Q4H PRN PRN Reason: Pain or Fever Stop: 07/17/22 23:32 Last Admin: 06/19/22 23:34 Dose: 650 mg Amlodipine Besylate (Amlodipine Besylate 5 Mg Tab) 5 mg PO QAM [facility] Stop: 07/19/22 08:59 Last Admin: 06/20/22 08:37 Dose: 5 mg Furosemide (Furosemide 40 Mg Tab) 40 mg PO QAM [facility] Stop: 07/20/22 08:59 Last Admin: 06/20/22 08:37 Dose: 40 mg Heparin Sodium (Porcine) (Heparin Sod 5,000 Unit/0.5 Ml Vial) 5,000 units SQ Q8H [facility] Stop: 07/18/22 00:00 Last Admin: 06/20/22 07:58 Dose: 5,000 units Hydralazine HCl (Hydralazine Tab 50 Mg Tab) 50 mg PO TID [facility] Stop: 07/20/22 13:59 Last Admin: 06/20/22 14:12 Dose: 50 mg Promethazine HCl 6.25 mg/ (Sodium Chloride) 50.25 mls @ 201 mls/hr IV Q6H PRN PRN Reason: Nausea And Vomiting Stop: 07/17/22 23:32 Isosorbide Mononitrate (Isosorbide [place] Extended Rel 30 Mg Tabcr) 30 mg PO [facility] Stop: 07/18/22 09:44 Last Admin: 06/20/22 08:36 Dose: 30 mg Lorazepam (Lorazepam 0.5 Mg Tab) 0.25 mg PO TID PRN PRN Reason: Anxiety Stop: 07/17/22 23:32 Last Admin: 06/19/22 23:33 Dose: 0.25 mg Metoprolol Succinate (Metoprolol Succ 50mg Ext Rel Tab) 50 mg PO [facility] Stop: 07/19/22 03:24 Last Admin: 06/20/22 08:36 Dose: 50 mg Nitroglycerin (Nitroglycerin Sl 0.4 Mg/Tab Tab) 0.4 mg SL Q5M PRN PRN Reason: Chest Pain Stop: 07/17/22 23:32
[2022-06-21] MEDS ORDERED: ACETAMINOPHEN 325 MG TAB PO STA (02:15)
[2022-06-21] MEDS ORDERED: LORazepam 0.5 MG TAB PO STA (02:16)
[2022-06-21] MEDS: hydrALAZINE HCL 25 MG TAB PO SCH ×3 (02:38→20:04)
[2022-06-21] MEDS: FUROSEMIDE 40 MG TAB PO SCH (08:20)
[2022-06-21] MEDS: amLODIPine BESYLATE 5 MG TAB PO SCH (08:20)
[2022-06-21] MEDS: ISOSORBIDE MONO EXTENDED REL 30 MG TABCR PO SCH (08:20)
[2022-06-21] MEDS: METOPROLOL SUCC 50MG EXT REL TAB PO SCH ×2 (08:20→20:04)
[2022-06-21 08:27] LABS: BUN Creatinine Ratio 17.1 (10-20); Calcium 9.3 mg/dl (8.5-10.1); Creatinine Clr Calc Pharmacy 28.3 ml/min; Est GFR (African American) 36.8 ml/min; Est GFR (Non-African American) 31.7 ml/min; Potassium 3.6 mmol/L (3.5-5.1)
[2022-06-21] MEDS: HEPARIN SOD 5,000 UNIT/0.5 ML VIAL SQ SCH ×2 (08:39→15:56)
--- NOTE | 2022-06-21 09:27 | Nephrology Progress Note ---
Date of Service June 21, 2022 Assessment & Plan (1) CKD (chronic kidney disease), stage III: Plan: - last seen by Nephrology in 2018( Dr Valera) when his baseline was in late 1.0' and early 2.0's,Previous to this Baseline it was 1.2-1.3 in 2016; no interval labs since 2018. ua w 2+ protein in setting of uncontrolled HTN -Most recent USS shows Echogenic kidneys bilaterally, compatible with CKD with bilateral cyst, R- 9.7 , l-9.2 cm - Most likley etiology renal vascular disease, superimposed with Cardio renal pathology. Slowly progressive.Given the fact that he has been non compliant with medication and follow up, with episodes of TISHA and uncontrolled HTN,he is high risk of progression to ESRD. -daily bmp -strict I/O, daily wts >avoid nephrotoxins;defer starting any ACEI/ARB for now He will need to be followed by Nephrology post discharge( non urgent in 2-3 weeks) (2) Combined systolic and diastolic congestive heart failure: Plan: Agree with cardiology , - continue with Diuresis . - daily weight (3) Hypertensive urgency: Plan: - SBP noted to be 210s upon arrival at the ER. - Better controlled now ,on Amlodipine,BB , ISMN,Hydralazine, lasix and spironolactone 25 mg daily Admission and Anticipated Discharge Date Admission Date: June 17, 2022 Subjective Seen for acute kidney injury on CKD. Main complaint is neck pain. No leg swelling. Blood pressure is improving. Review of Systems Review of Systems: All other systems were reviewed and negative except as noted in HPI Physical Exam Physical Exam: General exam: Appears comfortable, no acute distress HEENT: Pupils are equal and reactive to light Neck: No JVD, neck is supple trachea is midline Respiratory system: Clear breath sounds bilaterally. Gastrointestinal: Abdomen is soft, non distended, non tender, bowel sounds are present CVS: Regular rate and rhythm. No murmurs, rubs or gallops Musculoskeletal: No joint or muscle tenderness Extremities: Non tender, no edema, peripheral pulses are present Neuro: Oriented, no tremors, no focal neurological deficits Skin: No rashes Results & Data ([facility]) Vital Signs (Past 12 Hours) Vital Signs Temp Pulse Resp BP Pulse Ox O2 Del Method 06/21/22 07:18 36.6 C 78 18 154/94 H 96 Room Air 06/21/22 04:38 154/99 H 06/21/22 02:58 36.5 C 73 18 171/106 H 97 Room Air 06/21/22 02:39 171/106 H 06/20/22 22:56 36.4 C L 78 18 166/99 H 97 Room Air Laboratory Results 06/21/22 07:07
--- NOTE | 2022-06-21 12:01 | Cardiology Consultation ---
Date of Consultation June 21, 2022 Assessment & Plan (1) Combined systolic and diastolic congestive heart failure: (2) Decompensated heart failure: (3) Hypertensive crisis: (4) Elevated troponin: History of Present Illness Attending Physician: Sophia Mauro DO Allergies Allergy/AdvReac Type Severity Reaction Status Date / Time No Known Allergies Allergy Unknown Verified 06/17/22 21:17 Home Medications Medication Instructions Recorded Confirmed Type amlodipine 5 mg tablet 5 mg PO QAM 06/17/22 06/17/22 History cholecalciferol (vitamin D3) 1,250 1,250 mcg PO 2XWK 06/17/22 06/17/22 History mcg (50,000 unit) capsule furosemide 40 mg tablet 40 mg PO BID 06/17/22 06/17/22 History hydralazine 50 mg tablet 50 mg PO TID 06/17/22 06/17/22 History isosorbide mononitrate 30 mg 30 mg PO QAM 06/17/22 06/17/22 History tablet,extended release 24 hr metoprolol tartrate 50 mg tablet 50 mg PO BID 06/17/22 06/17/22 History mirtazapine 45 mg tablet 45 mg PO HS 06/17/22 06/17/22 History potassium chloride 20 mEq 40 meq PO QAM 06/17/22 06/17/22 History tablet,extended release(part/cryst) (Klor-Con M) sertraline 100 mg tablet 100 mg PO DAILY 06/17/22 06/17/22 History spironolactone 25 mg tablet 12.5 mg PO DAILY 06/17/22 06/17/22 History Patient History Medical History Alcohol abuse Depression Dyslipidemia HTN (hypertension) Social History Smoking Status: Never smoker Second Hand Exposure: No; Do You Dip or Chew Tobacco: Yes; Tobacco Cessation Education Requested by Patient: No Hx Alcohol Use: No Hx Substance Use: No Preferred Language: Spanish Communication Ability: Effective 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 How many Children do You have: 0 Other Information That Helps Us Care for You: No Feels Safe at Home: Yes Safety Concerns: Feels Safe At This Time Assistive Devices: None Review of Systems Review of Systems: Review of Systems: See HPI for pertinent positives. All other 10 point review of systems are negative. Physical Exam Physical Exam: General: no acute distress and stated age Head: normocephalic, no masses, lesions, tenderness or abnormalities Eyes: conjunctiva are pink and non-injected, sclera clear Neck: supple, no adenopathy, no bruits, normal jugular venous pulse, no hepatojugular reflux Chest: normal shape and normal respiratory effort Lungs: clear to auscultation and percussion Cardiac Exam: - regular rate & rhythm, no murmurs gallops or rubs - normal S1, normal S2 Pulses: 2(+) throughout Abdomen: abdomen soft, non-tender, no abnormal masses and no hepatosplenomegaly Musculoskeletal: no gait disturbance, no joint inflammation, no deforming arthritis Extremities: no edema and no cyanosis Neuro: grossly normal exam Results & Data ([facility]) Vital Signs (Past 12 Hours) Vital Signs Temp Pulse Resp BP Pulse Ox O2 Del Method 06/21/22 11:32 36.5 C 75 18 151/84 H 95 Room Air 06/21/22 08:00 Room Air 06/21/22 07:18 36.6 C 78 18 154/94 H 96 Room Air 06/21/22 04:38 154/99 H 06/21/22 02:58 36.5 C 73 18 171/106 H 97 Room Air 06/21/22 02:39 171/106 H
--- NOTE | 2022-06-21 12:05 | Cardiology Progress Note ---
Date of Service June 21, 2022 Assessment & Plan (1) Combined systolic and diastolic congestive heart failure: (2) Decompensated heart failure: (3) Hypertensive crisis: (4) Elevated troponin: Plan The patient remains hypertensive but is otherwise stable and has no new cardiac complaints. Yesterday we titrated his hydralazine with some improvement in his blood pressure but ideally we would like to see the systolic blood pressure to be less than a 140. I have increased his metoprolol XL to 50 mg twice daily which will start tonight. Reassess in the morning. Admission and Anticipated Discharge Date Admission Date: June 17, 2022 Subjective The patient had an uneventful night. Review of Systems Review of Systems: Review of Systems: See HPI for pertinent positives. All other 10 point review of systems are negative. Physical Exam Physical Exam: General: no acute distress and stated age Head: normocephalic, no masses, lesions, tenderness or abnormalities Eyes: conjunctiva are pink and non-injected, sclera clear Neck: supple, no adenopathy, no bruits, normal jugular venous pulse, no hepatojugular reflux Chest: normal shape and normal respiratory effort Lungs: clear to auscultation and percussion Cardiac Exam: - regular rate & rhythm, no murmurs gallops or rubs - normal S1, normal S2 Pulses: 2(+) throughout Abdomen: abdomen soft, non-tender, no abnormal masses and no hepatosplenomegaly Musculoskeletal: no gait disturbance, no joint inflammation, no deforming arthritis Extremities: no edema and no cyanosis Neuro: grossly normal exam Results & Data ([facility]) Vital Signs (Past 12 Hours) Vital Signs Temp Pulse Resp BP Pulse Ox O2 Del Method 06/21/22 11:32 36.5 C 75 18 151/84 H 95 Room Air 06/21/22 08:00 Room Air 06/21/22 07:18 36.6 C 78 18 154/94 H 96 Room Air 06/21/22 04:38 154/99 H 06/21/22 02:58 36.5 C 73 18 171/106 H 97 Room Air 06/21/22 02:39 171/106 H Laboratory Results Laboratory Results - last 24 hr 06/21/22 07:07 Sodium 138 Potassium 3.6 Chloride 105 Carbon Dioxide 24 Anion Gap 9 BUN 38 H Creatinine 2.22 H D Est Cr Clr Drug Dosing 28.3 Est GFR ( Amer) 36.8 Est GFR (Non-Af Amer) 31.7 BUN/Creatinine Ratio 17.1 Glucose 100 H Calcium 9.3 Medications Administered Current Inpatient Medications Acetaminophen (Acetaminophen 325 Mg Tab) 650 mg PO Q4H PRN PRN Reason: Pain or Fever Stop: 07/17/22 23:32 Last Admin: 06/19/22 23:34 Dose: 650 mg Amlodipine Besylate (Amlodipine Besylate 5 Mg Tab) 5 mg PO [facility] Stop: 07/19/22 08:59 Last Admin: 06/21/22 08:20 Dose: 5 mg Furosemide (Furosemide 40 Mg Tab) 40 mg PO [facility] Stop: 07/20/22 08:59 Last Admin: 06/21/22 08:20 Dose: 40 mg Heparin Sodium (Porcine) (Heparin Sod 5,000 Unit/0.5 Ml Vial) 5,000 units SQ Q8H [facility] Stop: 07/18/22 00:00 Last Admin: 06/21/22 08:39 Dose: Not Given Hydralazine HCl (Hydralazine Hcl 25 Mg Tab) 75 mg PO TID [facility] Stop: 07/21/22 02:14 Last Admin: 06/21/22 02:38 Dose: 75 mg Promethazine HCl 6.25 mg/ (Sodium Chloride) 50.25 mls @ 201 mls/hr IV Q6H PRN PRN Reason: Nausea And Vomiting Stop: 07/17/22 23:32 Isosorbide Mononitrate (Isosorbide Monona Extended Rel 30 Mg Tabcr) 30 mg PO [facility] Stop: 07/18/22 09:44 Last Admin: 06/21/22 08:20 Dose: 30 mg Lorazepam (Lorazepam 0.5 Mg Tab) 0.25 mg PO TID PRN PRN Reason: Anxiety Stop: 07/17/22 23:32 Last Admin: 06/19/22 23:33 Dose: 0.25 mg Metoprolol Succinate (Metoprolol Succ 50mg Ext Rel Tab) 50 mg PO [facility] Stop: 07/19/22 03:24 Last Admin: 06/21/22 08:20 Dose: 50 mg Nitroglycerin (Nitroglycerin Sl 0.4 Mg/Tab Tab) 0.4 mg SL Q5M PRN PRN Reason: Chest Pain Stop: 07/17/22 23:32
--- NOTE | 2022-06-21 12:12 | Hospitalist Progress Note ---
Date of Service June 21, 2022 Assessment & Plan (1) Hypertensive crisis: (2) Acute systolic heart failure: (3) Noncompliance with medication regimen: (4) Demand ischemia: (5) Depression: (6) Aortic stenosis: (7) CKD (chronic kidney disease), stage III: (8) Headache: Plan 57 yo M with HTN and h/o reduced EF presents with hypertensive crisis as a result of medical noncompliance. Improved with diuretic therapy and is net negative fluid balance. Metoprolol succinate for GDMT with imdur 30mg added Cont Norvasc per home regimen. Aldactone started per nephrology, Lasix IV converted to PO daily, cont to check replete K as needed during this transition-->3.7 today. Known aortic stenosis, noted on echo. 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 No murmur heard on exam Renal us reveals evidence of chronic disease Nephrology consulted for CKD CKD likely related to uncontrolled HTN; along the same lines he has diastolic dysfunction seen on echo Appreciate nephro involvement-->holding off on ACEI/ARB at this time given creat 2.2 Will renally dose meds as needed and monitor electrolytes daily. Additional hydralazine for improved BP control per cardiology but still BP readings are in the 140s-150s Toprol was increased per cardiology. Will cont to closely monitor. Headache-now resolved. has h/o migraines. If this returns again, consider MRI. Head CT this admission was normal. Full Code DVT proph: heparin Dispo-uncertain, possibly rehab but he may not be in agreement with this. Sophia Mauro DO [facility] Hospitalist Admission and Anticipated Discharge Date Admission Date: June 17, 2022 Subjective 57-year-old man admitted with worsening shortness of breath and acute heart failure easier to exert himself and he is attempting more physical activity headache at base of skull overnight, resolved with meds denies visual changes or other stroke like symptoms reports a h/o migraines but can't tell if this is similar to before Migraines were aborted wtih excedrin (aspirin) historically He is not open to the idea of rehab at this time BP check in room: L arm 147/78 P 71 R arm 154/89 P 73 Review of Systems Review of Systems: All systems reviewed negative except as indicated above Physical Exam Physical Exam: CONSTITUTIONAL: thin with muscle wasting along his back and extremities, vitals as above, generally well-appearing EYES: normal conjunctivae, no scleral icterus ENT: external ear and nose normal, MMM NECK: trachea midline, RESPIRATORY: clear to auscultation bilaterally, no crackles, rales or wheezes, normal respiratory effort CARDIOVASCULAR: regular rate and rhythm, S1 and 2 heard without murmurs, gallops or rubs, no JVD, no peripheral edema CHEST: inspection of chest was normal GASTROINTESTINAL: soft, nontender, ND, no guarding MUSCULOSKELETAL: strength 5/5 throughout, head is normocephalic and atraumatic SKIN: warm and dry NEUROLOGIC: CN 2-12 grossly intact, no sensory deficit, normal cognition, normal speech, no tremor PSYCHIATRIC: alert cooperative and oriented to person, place and time. Euthymic mood, makes good eye contact, language grossly intact, recent and remote memory grossly intact. Results & Data Results & Data ([facility]) Vital Signs (Past 12 Hours) Vital Signs Temp Pulse Resp BP Pulse Ox O2 Del Method 06/21/22 11:32 36.5 C 75 18 151/84 H 95 Room Air 06/21/22 08:00 Room Air 06/21/22 07:18 36.6 C 78 18 154/94 H 96 Room Air 06/21/22 04:38 154/99 H 06/21/22 02:58 36.5 C 73 18 171/106 H 97 Room Air 06/21/22 02:39 171/106 H Laboratory Results [facility] 06/21/22 07:07 Sodium 138 Potassium 3.6 Chloride 105 Carbon Dioxide 24 BUN 38 H Creatinine 2.22 H D Glucose 100 H Calcium 9.3 Medications Administered Current Inpatient Medications Acetaminophen (Acetaminophen 325 Mg Tab) 650 mg PO Q4H PRN PRN Reason: Pain or Fever Stop: 07/17/22 23:32 Last Admin: 06/19/22 23:34 Dose: 650 mg Amlodipine Besylate (Amlodipine Besylate 5 Mg Tab) 5 mg PO [facility] Stop: 07/19/22 08:59 Last Admin: 06/21/22 08:20 Dose: 5 mg Furosemide (Furosemide 40 Mg Tab) 40 mg PO [facility] Stop: 07/20/22 08:59 Last Admin: 06/21/22 08:20 Dose: 40 mg Heparin Sodium (Porcine) (Heparin Sod 5,000 Unit/0.5 Ml Vial) 5,000 units SQ Q 8H [facility] Stop: 07/18/22 00:00 Last Admin: 06/21/22 08:39 Dose: Not Given Hydralazine HCl (Hydralazine Hcl 25 Mg Tab) 75 mg PO TID [facility] Stop: 07/21/22 02:14 Last Admin: 06/21/22 02:38 Dose: 75 mg Promethazine HCl 6.25 mg/ (Sodium Chloride) 50.25 mls @ 201 mls/hr IV Q6H PRN PRN Reason: Nausea And Vomiting Stop: 07/17/22 23:32 Isosorbide Mononitrate (Isosorbide Caroline Extended Rel 30 Mg Tabcr) 30 mg PO QAM [facility] Stop: 07/18/22 09:44 Last Admin: 06/21/22 08:20 Dose: 30 mg Lorazepam (Lorazepam 0.5 Mg Tab) 0.25 mg PO TID PRN PRN Reason: Anxiety Stop: 07/17/22 23:32 Last Admin: 06/19/22 23:33 Dose: 0.25 mg Metoprolol Succinate (Metoprolol Succ 50mg Ext Rel Tab) 50 mg PO BID [facility] Stop: 07/21/22 20:59 Nitroglycerin (Nitroglycerin Sl 0.4 Mg/Tab Tab) 0.4 mg SL Q5M PRN PRN Reason: Chest Pain Stop: 07/17/22 23:32
[2022-06-21] MEDS: ACETAMINOPHEN 325 MG TAB PO PRN ×2 (16:01→20:06)
[2022-06-21] MEDS: LORazepam 0.5 MG TAB PO PRN (16:01)
[2022-06-21] MEDS ORDERED: NAPROXEN 250 MG TAB PO STA (17:30)
--- NOTE | 2022-06-21 19:40 | Magnetic Resonance Report ---
MRI OF THE BRAIN WITHOUT CONTRAST CLINICAL HISTORY: inceased frequency [place], head CT neg COMPARISON STUDY: MRI of the brain November 10, 2007. Head CT June 17, 2022. TECHNIQUE: Utilizing a 1.5 Sharron magnet and dedicated coil, multiplanar, multiecho imaging of the bra in was performed without IV contrast. FINDINGS: There are no foci of restricted diffusion to suggest acute infarct. A few small hyperintens e foci are noted on the diffusion-weighted sequence, including a focus within the left carrillo radiata and the periventricular left occipital lobe. These are isointense on the ADC map. Ventricular system is unremarkable. Basal cisterns are patent. There are no extra-axial collections. Flow-voids for the major intracranial vessels are present. No intracranial masses identified on this unenhanced exam. T here has been interval development of extensive white matter T2 hyperintense foci since previous MRI of November 10, 2007. These include foci within the periventricular white matter, predominantly of the pa rietal lobes. In addition, there are T2 hyperintense foci within the cerebellum. There is no skin mas s effect. No [place] matter involvement is present. Note is made of T2 hyperintensity within the roque as well. This is new since previous MRI. There is no evidence for sinusitis. There is no significant ma stoid effusion. Trace fluid within left mastoid air cells is present. No acute intracranial hemorrhag e, midline shift or mass effect is present. IMPRESSION: 1. No evidence for acute infarct. No acute intracranial hemorrhage. 2. Extensive white matter T2 hyperintense foci, predominantly within the periventricular parietal lob es and the cerebellar hemispheres. These are nonspecific. Posterior reversible encephalopathy syndrom e (PRES) is a consideration although the distribution is somewhat atypical. An infectious process suc h as Lyme disease is also within the differential. Cerebellar involvement is not typical for small ve ssel disease. A short-term follow-up MRI of the brain with and without contrast is recommended. ACT 112: Negative or not required by law. Electronically signed by: Carlos Palacios M.D. 06/21/2022 7:38 PM
[2022-06-22] MEDS: HEPARIN SOD 5,000 UNIT/0.5 ML VIAL SQ SCH ×4 (01:40→23:34)
[2022-06-22 07:52] LABS: Hematocrit (blood only) 36.6 % (42.0-52.0); Hemoglobin 12.7 g/dl (14.0-18.0); Mean Corpuscular Hemoglobin 31.3 pg (25.0-34.0); Mean Corpuscular Hgb Conc 34.7 g/dL (32.0-36.0); Mean Corpuscular Volume 90.1 fL (80.0-100.0); Mean Platelet Volume 9.4 fL (9.4-12.4); Platelet Count 308 K/uL (130-400); RDW Coefficient of Variation 13.1 % (11.5-14.5); RDW Standard Deviation 42.9 fL (36.4-46.3); Red Blood Count 4.06 M/uL (4.70-6.10); White Blood Count 7.58 K/ul (4.8-10.8)
[2022-06-22 08:16] LABS: BUN Creatinine Ratio 15.6 (10-20); Calcium 8.9 mg/dl (8.5-10.1); Creatinine Clr Calc Pharmacy 25.2 ml/min; Est GFR (African American) 32.8 ml/min; Est GFR (Non-African American) 28.3 ml/min; Magnesium 2.3 mg/dl (1.7-2.4); Phosphorus 4.6 mg/dl (2.5-4.9); Potassium 3.5 mmol/L (3.5-5.1)
[2022-06-22 08:49] LABS: Lyme Ab IgG w/WB Rflx Negative (Negative)
[2022-06-22 09:04] LABS: Lyme Ab IgM w/WB Rflx Equivocal (Negative)
[2022-06-22] MEDS: hydrALAZINE HCL 25 MG TAB PO SCH ×3 (09:08→19:54)
[2022-06-22] MEDS: amLODIPine BESYLATE 5 MG TAB PO SCH (09:08)
[2022-06-22] MEDS: METOPROLOL SUCC 50MG EXT REL TAB PO SCH ×2 (09:08→19:54)
[2022-06-22] MEDS: FUROSEMIDE 40 MG TAB PO SCH (09:08)
--- NOTE | 2022-06-22 10:15 | Cardiology Progress Note ---
Date of Service June 22, 2022 Assessment & Plan (1) Combined systolic and diastolic congestive heart failure: (2) Decompensated heart failure: (3) Hypertensive crisis: (4) Elevated troponin: Plan Patient admitted with CHF and hypertensive crisis secondary to non compliance. of meds. History of cardiomyopathy in 2019, improving with medical therapies and then failed to keep f/u appts Volume status improved since admission continue low dose furosemide He was on spironolactone, but looks like this was discontinued due to worsening renal function. Supplement and monitor potassium as needed Nephrology following. No HEATHER/ARB at this time. Echo with global hypokinesis, LVEF 35-40% Metoprolol titrated to 50 mg BID. Tolerating. HR's in the 60's BP trending down. Intolerant of isosorbide due to severe headache? Continue metoprolol, amlodipine, hydralazine, furosemide. Consider further titration of hydralazine if needed. BP this morning improving. 140/80's before meds. Recheck after meds and follow. Case discussed with Dr. Hagen. Admission and Anticipated Discharge Date Admission Date: June 17, 2022 Supervising Physician Co-Signing Physician Notes I have reviewed the advance practitioner documentation and agree. I saw and evaluated the patient on the date of service referenced in the note and have performed a medically appropriate history and or exam. The patient's blood pressure has improved with the changes in medication. From a cardiac standpoint believe the patient is stable and can be discharged home when the hospitalist service is in agreement. Subjective Patient reports feeling well this morning. No chest pain/dyspnea. Edema im proved since admission. BP trending down. He had a severe headache last night. Isosorbide on hold. Headache now resolved. Review of Systems Review of Systems: All systems reviewed & are unremarkable except as noted in HPI & below Physical Exam Constitutional: WD/WN, vitals as above well developed; no acute distress Respiratory: normal respiratory effort, lungs clear to auscultation Cardiovascular: Rate/Rhythm: regular rate and regular rhythm Heart Sounds: no murmur Vessels: no JVD Extremities: no edema Gastrointestinal (Abdomen): normal bowel sounds, soft, nontender, no hepatosplenomegaly Musculoskeletal: no cyanosis or clubbing, extremities motor strength 5/5 Neurologic: PERRL, EOMI, accommodation nl, no face palsy, no dysarthria Psychiatric: A+Ox3, euthymic affect Results & Data ([facility]) Vital Signs (Past 12 Hours) Vital Signs Temp Pulse Resp BP BP Pulse Ox O2 Del Method 06/22/22 06:40 36.5 C 64 18 144/85 H 96 Room Air 06/22/22 03:27 36.4 C L 64 16 149/84 H 97 Room Air 06/21/22 23:09 36.7 C 67 18 147/89 H 97 Room Air Laboratory Results CBC 06/22/22 Range/Units 07:32 WBC 7.58 (4.8-10.8) K/ul RBC 4.06 L (4.70-6.10) M/uL Hgb 12.7 L (14.0-18.0) g/dl Hct 36.6 L (42.0-52.0) % Plt Count 308 (130-400) K/uL Comprehensive Metabolic Panel 06/22/22 Range/Units 07:32 Sodium 138 (136-145) mmol/L Potassium 3.5 (3.5-5.1) mmol/L Chloride 105 (98-107) mmol/L Carbon Dioxide 27 (21-32) mmol/L BUN 38 H (6-23) mg/dl Creatinine 2.44 H (0.6-1.4) mg/dl Glucose 96 (70-99(Fasting)) mg/dl Calcium 8.9 (8.5-10.1) mg/dl Intake and Output 06/21/22 06/22/22 06/22/22 22:59 06:59 14:59 Output Total 1050 Balance -1 -536 Output: # Bowel Movements Other: # Unmeasured Voids 1 Weight 53.411 kg Weight Measurement Method Built in [facility] Diagnostic Findings Telemetry reviewed: NSR in the 60's with conduction delay Echo: Moderately reduced LVEF at 35-40% Global hypokinesis Grade II diastolic dysfunction Aortic scerlosis without stenosis moderate TR small pericardial effusion Medications Administered Current Inpatient Medications Acetaminophen (Acetaminophen 325 Mg Tab) 650 mg PO Q4H PRN PRN Reason: Pain or Fever Stop: 07/17/22 23:32 Last Admin: 06/21/22 20:06 Dose: 650 mg Amlodipine Besylate (Amlodipine Besylate 5 Mg Tab) 5 mg PO QAM [facility] Stop: 07/19/22 08:59 Last Admin: 06/22/22 09:08 Dose: 5 mg Furosemide (Furosemide 40 Mg Tab) 40 mg PO QAM [facility] Stop: 07/20/22 08:59 Last Admin: 06/22/22 09:08 Dose: 40 mg Heparin Sodium (Porcine) (Heparin Sod 5,000 Unit/0.5 Ml Vial) 5,000 units SQ Q8H [facility] Stop: 07/18/22 00:00 Last Admin: 06/22/22 09:06 Dose: Not Given Hydralazine HCl (Hydralazine Hcl 25 Mg Tab) 75 mg PO TID [facility] Stop: 07/21/22 02:14 Last Admin: 06/22/22 09:08 Dose: 75 mg Promethazine HCl 6.25 mg/ (Sodium Chloride) 50.25 mls @ 201 mls/hr IV Q6H PRN PRN Reason: Nausea And Vomiting Stop: 07/17/22 23:32 Lorazepam (Lorazepam 0.5 Mg Tab) 0.25 mg PO TID PRN PRN Reason: Anxiety Stop: 07/17/22 23:32 Last Admin: 06/21/22 16:01 Dose: 0.25 mg Metoprolol Succinate (Metoprolol Succ 50mg Ext Rel Tab) 50 mg PO BID [facility] Stop: 07/21/22 20:59 Last Admin: 06/22/22 09:08 Dose: 50 mg
--- NOTE | 2022-06-22 11:07 | Nephrology Progress Note ---
Date of Service June 22, 2022 Assessment & Plan (1) CKD (chronic kidney disease), stage III: Plan: - last seen by Nephrology in 2018 (Dr Branch) when his baseline was in late 1.0's and early 2.0's, Previous to this Baseline it was 1.2-1.3 in 2016; no interval labs since 2018. ua w 2+ protein in setting of uncontrolled HTN -Most recent USS shows Echogenic kidneys bilaterally, compatible with CKD with bilateral cyst, R- 9.7 , l-9.2 cm - Most likley etiology renal vascular disease, superimposed with Cardio renal pathology. Slowly progressive. Given the fact that he has been non compliant with medication and follow up, with episodes of TISHA anduncontrolled HTN,he is high risk of progression to ESRD. -daily bmp -strict I/O, daily wts >avoid nephrotoxins;defer starting any ACEI/ARB for now From renal standpoint he could be d/c but if he stays in house will follow peripherally weekly bmp x 3 to be ordered by nephro RN He will need to be followed by Nephrology with discharge appt (non urgent in 2-3 weeks) preferably w/ Sarina will also need cardiology f/u D/c on current meds; hold chris/arb prior to d/c (2) Combined systolic and diastolic congestive heart failure: Plan: As per cardiology , - continue with Diuresis . - daily weight >> strongly recommend STANDING weights; though not floridly overloaded currently (3) Hypertensive urgency: Plan: - SBP noted to be 210s upon arrival at the ER. Goal SBP is 140-150s > he is at goal - Better controlled now on Amlodipine, BB, ISMN, Hydralazine, and lasix 40 mg d aily Admission and Anticipated Discharge Date Admission Date: June 17, 2022 Subjective no interval events. stiff neck he attributes to hospital bed; no sob, no n/v, no edema, no voiding concerns Review of Systems Review of Systems: All systems reviewed & are unremarkable except as noted in Subjective Physical Exam Constitutional: well developed, + thin and + cachectic; no acute distress Eyes: EOM intact bilaterally ENMT: Ears: no external ear abnormality Nose: no external nose abnormality Mouth: + dry oral mucous membranes Neck: no nuchal rigidity Respiratory: normal respiratory effort Auscultation: + diminished lung sounds and + crackles (fine velcro end insp BL bases) Cardiovascular: RRR, no murmur, no edema Gastrointestinal (Abdomen): Inspection/Auscultation: normal bowel sounds Percussion/Palpation: abdomen soft; abdomen nontender Musculoskeletal: Extremities: strength 5/5 throughout Skin: no rashes, warm and dry Neurologic: hung, fluent speech, no tremor Psychiatric: Orientation: alert and oriented x 3 Speech: normal rate/rhythm/volume of speech Affect: + anxious affect (slight) Results & Data ([facility]) Vital Signs (Past 12 Hours) Vital Signs Temp Pulse Resp BP BP Pulse Ox O2 Del Method 06/22/22 10:48 36.4 C L 65 20 137/76 97 Room Air 06/22/22 06:40 36.5 C 64 18 144/85 H 96 Room Air 06/22/22 03:27 36.4 C L 64 16 149/84 H 97 Room Air 06/21/22 23:09 36.7 C 67 18 147/89 H 97 Room Air Laboratory Results 06/22/22 07:32 06/22/22 07:32
--- NOTE | 2022-06-22 11:09 | Neurology Consultation ---
Date of Consultation June 22, 2022 Assessment & Plan (1) PRES (posterior reversible encephalopathy syndrome): (2) Headache: (3) Hypertensive crisis: Plan 57-year-old male with a history of hypertension, depression, medication noncompliance, presenting with hypertensive crisis complicated by acute systolic heart failure, seems to be medically stable, has been seen by cardiology and nephrology, has been complaining of bothersome headache although none this morning, brain MRI quite suggestive of posterior reversible encephalopathy syndrome or PRES per my review, with superimposed chronic small vessel ischemic disease. PRES is a type of transient cerebral edema due to compromise of cerebrovascular autoregulation and is associated with hypertension and acute on chronic renal disease. PRES can sometimes be associated with other neurologic signs and symptoms such as seizures and vision loss. Fortunately, this patient has not experienced either of these issues. He does complain of a low-grade frontal headache, although again, nothing this morning. Imaging changes from PRES would be expected to resolve over several weeks. I do agree that a follow-up short-term brain MRI is indicated to ensure resolution. Would obtain a gadolinium-enhanced brain MRI in about 2 weeks. I would also expect patient's headaches to resolve on their own, with management of hypertension. Of course, however, there can be some lag in headache improvement after blood pressure has been adequately controlled. If this patient's headaches were to recur would would consider gradually resuming his sertraline. Another strategy could include a trial of either topiramate or Depakote but with intention to discontinue this type of medication within a few weeks, assuming headache resolution. History of Present Illness Reason for Consultation: Headaches, abnormal brain MRI Requesting Physician: Sophia Mauro DO Attending Physician: Sophia Mauro DO History of Present Illness The patient is a 57-year-old male who presented to the emergency department June 17, 2022 for further evaluation and management of chest pain and shortness of breath. He has a history of hypertension, depression, alcohol abuse, reports noncompliance with his medications. He has been complaining of a low to moderate right frontal headache although none this morning. He has been admitted to the [facility] with a diagnosis of hypertensive crisis, complicated by acute systolic heart failure. He has been evaluated by cardiology and nephrology regarding chronic kidney disease. He did have a brain MRI completed yesterday that revealed extensive white matter T2/FLAIR hyperintensities, most prominent posteriorly, and quite suggestive of PRES with associated increased FLAIR signal within the posterior cerebellar and occipital lobes. I independently reviewed these images. A short-term follow-up brain MRI was suggested by radiology. Patient denies fevers, neck stiffness, or seizures. He denies any specific or focal neurologic symptoms. No vision loss, no strokelike symptoms. He reports that he stopped all of his medications including his antihypertensives and psychiatric medications. He reports that his mood has been stable. He denies excessive alcohol use recently. Allergies Allergy/AdvReac Type Severity Reaction Status Date / Time No Known Allergies Allergy Unknown Verified 06/17/22 21:17 Home Medications Medication Instructions Recorded Confirmed Type amlodipine 5 mg tablet 5 mg PO QAM 06/17/22 06/17/22 History cholecalciferol (vitamin D3) 1,250 1,250 mcg PO 2XWK 06/17/22 06/17/22 History mcg (50,000 unit) capsule furosemide 40 mg tablet 40 mg PO BID 06/17/22 06/17/22 History hydralazine 50 mg tablet 50 mg PO TID 06/17/22 06/17/22 History isosorbide mononitrate 30 mg 30 mg PO QAM 06/17/22 06/17/22 History tablet,extended release 24 hr metoprolol tartrate 50 mg tablet 50 mg PO BID 06/17/22 06/17/22 History mirtazapine 45 mg tablet 45 mg PO HS 06/17/22 06/17/22 History potassium chloride 20 mEq 40 meq PO QAM 06/17/22 06/17/22 History tablet,extended release(part/cryst) (Klor-Con M) sertraline 100 mg tablet 100 mg PO DAILY 06/17/22 06/17/22 History spironolactone 25 mg tablet 12.5 mg PO DAILY 06/17/22 06/17/22 History Patient History Medical History Alcohol abuse Depression Dyslipidemia HTN (hypertension) Social History Smoking Status: Never smoker Second Hand Exposure: No; Do You Dip or Chew Tobacco: Yes; Tobacco Cessation Education Requested by Patient: No Hx Alcohol Use: No Hx Substance Use: No Preferred Language: Azeri Communication Ability: Effective Ladle Puller Required: No Beliefs That Will Affect Care: None marital status: Single Current Living Situation: Alone Current Living Situation Comment: Lives with his brother Kaz. How many Children do You have: 0 Other Information That Helps Us Care for You: No Feels Safe at Home: Yes Safety Concerns: Feels Safe At This Time Assistive Devices: None Review of Systems Constitutional: no fever and no chills Eyes: no blind spots and no diplopia Ear, Nose, Mouth, Throat: no ear pain and no hearing loss Respiratory: no cough and no dyspnea Cardiovascular: no chest pain and no palpitations Gastrointestinal: no nausea and no vomiting Genitourinary: no dysuria Musculoskeletal: no neck pain and no myalgia Integumentary: no rash and no lesions Neurologic: as per Subjective / HPI and + headache(s); no gait abnormality, no localized weakness, no loss of sensation, no tremor(s), no seizure-like ac tivity, no syncope, no confusion and no memory loss Psychiatric: as per Subjective / HPI; no depression and no anxiety Hematologic / Lymphatic: no easy bleeding and no easy bruising Exam (Neuro) Constitutional: well developed and well nourished; no acute distress Eyes: normal visual dodge by confrontation, PERRL, normal accommodation and EOM intact bilaterally; no fundoscopic abnormality, no nystagmus and no papilledema Cardiovascular: Vessels: normal carotid upstroke; no carotid bruit Neurologic: Oriented to:: Person, Place and Time Memory: Short Term Intact and Remote Intact Attention: Span Intact and Concentration Intact Language: Naming Objects and Repeating Phrases Speech Fluency: negative Dysarthria Speech Aphasia: negative Aphasia Fund of Knowledge: Current Events, Past History and Vocabulary Cranial Nerves: Normal II (Visual dodge full to confrontation, visual acuity normal), III, IV, (Pupils equal round reactive to light and accommodation, eye movements normal), V (Facial sensation intact), VII (There is no facial droop or weakness), VIII (Hearing intact), IX, X (Palate elevates to midline), XI (Shoulder shrug intact) and XII (Tongue protrudes to midline) Motor Strength: Normal Lower Extremities and Normal Upper Extremities; negative Pronator Drift Motor Tone: Normal Lower Extremities and Normal Upper Extremities Muscle Bulk/Involuntary Movements: No Involuntary Movements; negative Muscle Atrophy Sensation: Light Touch Intact, Pain/Temperature Intact, Vibration Intact and Proprioception Intact Coordination: Normal; negative Limited Balance, Dysdiadochokinesia, Finger-Nose Abnormal or Heel-Christensen Abnormal Deep Tendon Reflexes: Rt Triceps: 2+, Lt Triceps: 2+, Rt Biceps: 2+, Lt Biceps: 2+, Rt Brachioradialis: 2+, Lt Brachioradialis: 2+, Rt Patellar: 2+, Lt Patellar: 2+, Rt Ankle: 2+ and Lt Ankle: 2+ Special Tests: negative Babinski Present Details: Gait cannot be tested in the context of patient's current neurological status. Results & Data ([facility]) Vital Signs (Past 12 Hours) Vital Signs Temp Pulse Resp BP BP Pulse Ox O2 Del Method 06/22/22 10:48 36.4 C L 65 20 137/76 97 Room Air 06/22/22 06:40 36.5 C 64 18 144/85 H 96 Room Air 06/22/22 03:27 36.4 C L 64 16 149/84 H 97 Room Air 06/21/22 23:09 36.7 C 67 18 147/89 H 97 Room Air Laboratory Results WBC 7.58, hemoglobin 12.7, hematocrit 36.6, platelet count 308, sodium 138, potassium 3.5, BUN 38, creatinine 2.44, glucose 96, magnesium 2.3, Lyme IgG negative, Lyme IgM equivocal, Western blot pending, vitamin B12 310 Diagnostic Findings Brain MRI is as described in the HPI, I independently reviewed these images. Echocardiography revealed normal left ventricular chamber size, moderately reduced LV systolic function, EF 35 to 40%, moderate global hypokinesis, left atrium moderately dilated. PG Care Time/CCT Total # of Minutes Spent Total Time Spent: 80 Total Time Spent with Patient: Total time spent is greater than 50% in coordination of care (as documented) at patient's floor/unit and/or counseling patient: Coding Level of Care Code 73547 INT INP/OBS CARE MIN Diagnoses PRES (posterior reversible encephalopathy syndrome) I67.83 Headache R51.9 Hypertensive crisis I16.9
--- NOTE | 2022-06-22 15:09 | Hospitalist Progress Note ---
Date of Service June 22, 2022 Assessment & Plan (1) Hypertensive crisis: (2) PRES (posterior reversible encephalopathy syndrome): (3) Acute systolic heart failure: (4) Noncompliance with medication regimen: (5) Demand ischemia: (6) Depression: (7) Aortic stenosis: (8) CKD (chronic kidney disease), stage III: Plan 57 yo M with HTN and h/o reduced EF presents with hypertensive crisis as a result of medical noncompliance. Improved with diuretic therapy and is net negative fluid balance. Metoprolol succinate for GDMT with imdur 30mg added, then stopped on 06/21 bc of ATWOOD and concerned for side effects. Cont Norvasc per home regimen. No increases so to avoid edema as a possibility. Aldactone started per nephrology, Lasix IV converted to PO daily, cont to check replete K as needed during this transition/ Renal us reveals evidence of chronic disease Nephrology consulted for CKD CKD likely related to uncontrolled HTN; along the same lines he has diastolic dysfunction seen on echo Appreciate nephro involvement-->holding off on ACEI/ARB at this time given creat 2.4 Will renally dose meds as needed and monitor electrolytes daily. Additional hydralazine for improved BP control per cardiology, BP controlled in the 130s, stopping telemetry and plan for dc in am. Toprol was increased per cardiology. Will cont to closely monitor. Headache-now resolved. has h/o migraines. MRI revealed PRES. 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 Full Code DVT proph: heparin Dispo-declines rehab, likely to DC home with home health for PT and OT tomorrow. Sophia Mauro DO [facility] Hospitalist Admission and Anticipated Discharge Date Admission Date: June 17, 2022 Subjective 57-year-old man admitted with worsening shortness of breath and acute heart failure denies any symptoms today ATWOOD has resolved We discussed MRI findings Appreciate neuro consultation declines rehab Review of Systems Review of Systems: All systems reviewed negative except as indicated above Physical Exam Physical Exam: CONSTITUTIONAL: thin with muscle wasting along his back and extremities, vitals as above, generally well-appearing EYES: normal conjunctivae, no scleral icterus ENT: external ear and nose normal, MMM NECK: trachea midline, RESPIRATORY: clear to auscultation bilaterally, no crackles, rales or wheezes, normal respiratory effort CARDIOVASCULAR: regular rate and rhythm, S1 and 2 heard without murmurs, gallops or rubs, no JVD, no peripheral edema CHEST: inspection of chest was normal GASTROINTESTINAL: soft, nontender, ND, no guarding MUSCULOSKELETAL: strength 5/5 throughout, head is normocephalic and atraumatic SKIN: warm and dry NEUROLOGIC: CN 2-12 grossly intact, no sensory deficit, normal cognition, normal speech, no tremor PSYCHIATRIC: alert cooperative and oriented to person, place and time. Euthymic mood, makes good eye contact, language grossly intact, recent and remote memory grossly intact. Results & Data Results & Data ([facility]) Vital Signs (Past 12 Hours) Vital Signs Temp Pulse Resp BP BP Pulse Ox O2 Del Method 06/22/22 10:53 97 06/22/22 10:48 36.4 C L 65 20 137/76 97 Room Air 06/22/22 06:40 36.5 C 64 18 144/85 H 96 Room Air 06/22/22 03:27 36.4 C L 64 16 149/84 H 97 Room Air Laboratory Results Short CBC 06/22/22 Range/Units 07:32 WBC 7.58 (4.8-10.8) K/ul Hgb 12.7 L (14.0-18.0) g/dl Hct 36.6 L (42.0-52.0) % Plt Count 308 (130-400) K/uL BMP 06/22/22 07:32 Sodium 138 Potassium 3.5 Chloride 105 Carbon Dioxide 27 BUN 38 H Creatinine 2.44 H Glucose 96 Calcium 8.9 Medications Administered Current Inpatient Medications Acetaminophen (Acetaminophen 325 Mg Tab) 650 mg PO Q4H PRN PRN Reason: Pain or Fever Stop: 07/17/22 23:32 Last Admin: 06/21/22 20:06 Dose: 650 mg Amlodipine Besylate (Amlodipine Besylate 5 Mg Tab) 5 mg PO [facility] Stop: 07/19/22 08:59 Last Admin: 06/22/22 09:08 Dose: 5 mg Furosemide (Furosemide 40 Mg Tab) [facility] Stop: 07/20/22 08:59 Last Admin: 06/22/22 09:08 Dose: 40 mg Heparin Sodium (Porcine) (Heparin Sod 5,000 Unit/0.5 Ml Vial) 5,000 units SQ Q8H [facility] Stop: 07/18/22 00:00 Last Admin: 06/22/22 09:06 Dose: Not Given Hydralazine HCl (Hydralazine Hcl 25 Mg Tab) 75 mg PO TID [facility] Stop: 07/21/22 02:14 Last Admin: 06/22/22 14:01 Dose: 75 mg Promethazine HCl 6.25 mg/ (Sodium Chloride) 50.25 mls @ 201 mls/hr IV Q6H PRN PRN Reason: Nausea And Vomiting Stop: 07/17/22 23:32 Isosorbide Mononitrate (Isosorbide [place] Extended Rel 30 Mg Tabcr) 30 mg PO QAM [facility] Stop: 07/18/22 09:44 Last Admin: 06/21/22 08:20 Dose: 30 mg Lorazepam (Lorazepam 0.5 Mg Tab) 0.25 mg PO TID PRN PRN Reason: Anxiety Stop: 07/17/22 23:32 Last Admin: 06/21/22 16:01 Dose: 0.25 mg Metoprolol Succinate (Metoprolol Succ 50mg Ext Rel Tab) 50 mg PO BID [facility] Stop: 07/21/22 20:59 Last Admin: 06/22/22 09:08 Dose: 50 mg
[2022-06-23] MEDS: METOPROLOL SUCC 50MG EXT REL TAB PO SCH ×2 (08:23→20:06)
[2022-06-23] MEDS: hydrALAZINE HCL 25 MG TAB PO SCH ×3 (08:23→20:06)
[2022-06-23] MEDS: amLODIPine BESYLATE 5 MG TAB PO SCH (08:23)
[2022-06-23] MEDS: FUROSEMIDE 40 MG TAB PO SCH (08:23)
[2022-06-23] MEDS: HEPARIN SOD 5,000 UNIT/0.5 ML VIAL SQ SCH ×2 (08:25→15:39)
[2022-06-23 09:54] LABS: BUN Creatinine Ratio 18.1 (10-20); Calcium 8.8 mg/dl (8.5-10.1); Creatinine Clr Calc Pharmacy 23.7 ml/min; Est GFR (African American) 31.2 ml/min; Potassium 3.6 mmol/L (3.5-5.1)
--- NOTE | 2022-06-23 10:08 | Cardiology Progress Note ---
Date of Service June 23, 2022 Assessment & Plan (1) Combined systolic and diastolic congestive heart failure: (2) Decompensated heart failure: (3) Hypertensive crisis: (4) Elevated troponin: Plan Patient admitted with CHF and hypertensive crisis secondary to non compliance of meds. History of cardiomyopathy in 2019, improving with medical therapies and then failed to keep f/u appts Volume status improved since admission continue low dose furosemide He was on spironolactone, but looks like this was discontinued due to worsening renal function. Supplement and monitor potassium as needed Nephrology following. No HEATHER/ARB at this time. Echo with global hypokinesis, LVEF 35-40% Metoprolol titrated to 50 mg BID. Tolerating. HR's in the 60's BP trending down. Intolerant of isosorbide due to severe headache? Discontinued. Continue metoprolol, amlodipine, hydralazine, furosemide. BP this morning improved. Case discussed with Dr. Hagen. Stable for discharge from cardiac perspective with above medications. Will need approx 2-4 week cardio f/u at [facility] - Primary skeet operator is Dr. Rdz Will sign off. Please call warehouse production worker skeet operator with additional questions or concerns. Admission and Anticipated Discharge Date Admission Date: June 17, 2022 Supervising Physician Co-Signing Physician Notes I have reviewed the advance practitioner documentation and agree. I saw and evaluated the patient on the date of service referenced in the note and have performed a medically appropriate history and or exam. No additional recommendations at this time except that the patient can be discharged per the hospitalist service. Subjective Patient resting in bed comfortably. Voices no concerns. BP much improved and at goal. No recurrent headaches. No chest pain or SOB. Volume status improved. Review of Systems Review of Systems: All systems reviewed & are unremarkable except as noted in HPI & below Physical Exam Constitutional: WD/WN, vitals as above well developed; no acute distress Respiratory: normal respiratory effort, lungs clear to auscultation Cardiovascular: Rate/Rhythm: regular rate and regular rhythm Heart Sounds: no murmur Vessels: no JVD Extremities: no edema Gastrointestinal (Abdomen): normal bowel sounds, soft, nontender, no hepatosplenomegaly Musculoskeletal: no cyanosis or clubbing, extremities motor strength 5/5 Neurologic: PERRL, EOMI, accommodation nl, no face palsy, no dysarthria Psychiatric: A+Ox3, euthymic affect Results & Data ([facility]) Vital Signs (Past 12 Hours) Vital Signs Temp Pulse Resp BP Pulse Ox O2 Del Method 06/23/22 07:36 36.9 C 62 16 142/79 H 96 Room Air Laboratory Results Comprehensive Metabolic Panel 06/23/22 Range/Units 09:15 Sodium 136 (136-145) mmol/L Potassium 3.6 (3.5-5.1) mmol/L Chloride 104 (98-107) mmol/L Carbon Dioxide 24 (21-32) mmol/L BUN 46 H (6-23) mg/dl Creatinine 2.54 H (0.6-1.4) mg/dl Glucose 194 H (70-99(Fasting)) mg/dl Calcium 8.8 (8.5-10.1) mg/dl Intake and Output 06/22/22 06/23/22 06/23/22 22:59 06:59 14:59 Intake Total 200 / 1200 300 / 1200 Output Total 450 / 1075 900 / 900 Balance -250 / 125 300 / 125 -900 / -900 Intake: Oral 200 / 1200 300 / 1200 Output: Urine 450 / 1075 900 / 900 Other: Weight 52.2 kg Weight Measurement Method Standing Scale Diagnostic Findings Telemetry reviewed: N/A Medications Administered Current Inpatient Medications Acetaminophen (Acetaminophen 325 Mg Tab) 650 mg PO Q4H PRN PRN Reason: Pain or Fever Stop: 07/17/22 23:32 Last Admin: 06/21/22 20:06 Dose: 650 mg Amlodipine Besylate (Amlodipine Besylate 5 Mg Tab) 5 mg PO QAM [facility] Stop: 07/19/22 08:59 Last Admin: 06/23/22 08:23 Dose: 5 mg Furosemide (Furosemide 40 Mg Tab) 40 mg PO QAM [facility] Stop: 07/20/22 08:59 Last Admin: 06/23/22 08:23 Dose: 40 mg Heparin Sodium (Porcine) (Heparin Sod 5,000 Unit/0.5 Ml Vial) 5,000 units SQ Q8H [facility] Stop: 07/18/22 00:00 Last Admin: 06/23/22 08:25 Dose: Not Given Hydralazine HCl (Hydralazine Hcl 25 Mg Tab) 75 mg PO TID [facility] Stop: 07/21/22 02:14 Last Admin: 06/23/22 08:23 Dose: 75 mg Promethazine HCl 6.25 mg/ (Sodium Chloride) 50.25 mls @ 201 mls/hr IV Q6H PRN PRN Reason: Nausea And Vomiting Stop: 07/17/22 23:32 Ceftriaxone Sodium 2,000 mg/ (Dextrose) 70 mls @ 100 mls/hr IV Q24H DANIEL; Protocol Stop: 07/03/22 08:59 Lorazepam (Lorazepam 0.5 Mg Tab) 0.25 mg PO TID PRN PRN Reason: Anxiety Stop: 07/17/22 23:32 Last Admin: 06/21/22 16:01 Dose: 0.25 mg Metoprolol Succinate (Metoprolol Succ 50mg Ext Rel Tab) 50 mg PO BID [facility] Stop: 07/21/22 20:59 Last Admin: 06/23/22 08:23 Dose: 50 mg
[2022-06-23] MEDS: cefTRIAXone SODIUM 2,000 MG in DEXTROSE 5% 50 ML IV SCH (10:11)
--- NOTE | 2022-06-23 14:42 | Hospitalist Progress Note ---
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 Improved with diuretic therapy and is net negative fluid balance. Metoprolol succinate for GDMT with imdur 30mg added, then stopped on 06/21 bc of ATWOOD and concerned for side effects. Cont Norvasc per home regimen. No increases so to avoid edema as a possibility. Aldactone started per nephrology, Lasix IV converted to PO daily, cont to check replete K as needed during this transition/ Renal us reveals evidence of chronic disease Nephrology consulted for CKD CKD likely related to uncontrolled HTN; along the same lines he has diastolic dysfunction seen on echo Appreciate nephro involvement-->holding off on ACEI/ARB at this time given creat 2.4 Will renally dose meds as needed and monitor electrolytes daily. Additional hydralazine for improved BP control per cardiology, BP controlled in the 130s, stopping telemetry and plan for dc in am. Toprol was increased per cardiology. Will cont to closely monitor. Headache-now resolved. has h/o migraines. MRI revealed PRES. 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 06/23: Equivocal Lyme panel with sensation loss in fingers and ongoing posterior headache. No fever or other signs of meningitis. Do not feel we need a lumbar puncture at this point, but will cont with Rocephin for now. If not improved, will consider adding back sertraline. Full Code DVT proph: heparin Dispo-declines rehab and [facility]. Not ready to return home alone just yet. Doesn't have transportation to obtain outpatient meds/doctors visits, etc. Cont hospitalization for now. Sophia Mauro DO [facility] Hospitalist Admission and Anticipated Discharge Date Admission Date: June 17, 2022 Subjective 57-year-old man admitted with worsening shortness of breath and acute heart failure reports numbness in his fingers bilaterally No known tick bites but he has been working outside some posterior headache today reported but minor very poor insight into his own health issues started Rocephin with equivocal Lyme test pending. Review of Systems Review of Systems: All systems reviewed negative except as indicated above Physical Exam Physical Exam: CONSTITUTIONAL: thin with muscle wasting along his back and extremities, vitals as above, generally well-appearing EYES: normal conjunctivae, no scleral icterus ENT: external ear and nose normal, MMM NECK: trachea midline, RESPIRATORY: clear to auscultation bilaterally, no crackles, rales or wheezes, normal respiratory effort CARDIOVASCULAR: regular rate and rhythm, S1 and 2 heard without murmurs, gallops or rubs, no JVD, no peripheral edema CHEST: inspection of chest was normal GASTROINTESTINAL: soft, nontender, ND, no guarding MUSCULOSKELETAL: strength 5/5 throughout, head is normocephalic and atraumatic SKIN: warm and dry NEUROLOGIC: CN 2-12 grossly intact, no sensory deficit, normal cognition, normal speech, no tremor PSYCHIATRIC: alert cooperative and oriented to person, place and time. Euthymic mood, makes good eye contact, language grossly intact, recent and remote memory grossly intact. Results & Data Results & Data ([facility]) Vital Signs (Past 12 Hours) Vital Signs Temp Pulse Resp BP BP Pulse Ox O2 Del Method 06/23/22 14:05 131/74 06/23/22 07:36 36.9 C 62 16 142/79 H 96 Room Air Laboratory Results [facility] 06/23/22 09:15 Sodium 136 Potassium 3.6 Chloride 104 Carbon Dioxide 24 BUN 46 H Creatinine 2.54 H Glucose 194 H Calcium 8.8 Medications Administered Current Inpatient Medications Acetaminophen (Acetaminophen 325 Mg Tab) 650 mg PO Q4H PRN PRN Reason: Pain or Fever Stop: 07/17/22 23:32 Last Admin: 06/21/22 20:06 Dose: 650 mg Amlodipine Besylate (Amlodipine Besylate 5 Mg Tab) [facility] [place] Stop: 07/19/22 08:59 Last Admin: 06/23/22 08:23 Dose: 5 mg Furosemide (Furosemide 40 Mg Tab) [facility] [place] Stop: 07/20/22 08:59 Last Admin: 06/23/22 08:23 Dose: 40 mg Heparin Sodium (Porcine) (Heparin Sod 5,000 Unit/0.5 Ml Vial) 5,000 units SQ Q8H [facility] Stop: 07/18/22 00:00 Last Admin: 06/23/22 08:25 Dose: Not Given Hydralazine HCl (Hydralazine Hcl 25 Mg Tab) 75 mg PO TID [facility] Stop: 07/21/22 02:14 Last Admin: 06/23/22 14:14 Dose: 75 mg Promethazine HCl 6.25 mg/ (Sodium Chloride) 50.25 mls @ 201 mls/hr IV Q6H PRN PRN Reason: Nausea And Vomiting Stop: 07/17/22 23:32 Ceftriaxone Sodium 2,000 mg/ (Dextrose) 70 mls @ 100 mls/hr IV Q24H [facility]; Protocol Stop: 07/03/22 08:59 Last Infusion: 06/23/22 10:53 Dose: Infused Lorazepam (Lorazepam 0.5 Mg Tab) 0.25 mg PO TID PRN PRN Reason: Anxiety Stop: 07/17/22 23:32 Last Admin: 06/21/22 16:01 Dose: 0.25 mg Metoprolol Succinate (Metoprolol Succ 50mg Ext Rel Tab) 50 mg PO BID [facility] Stop: 07/21/22 20:59 Last Admin: 06/23/22 08:23 Dose: 50 mg
[2022-06-23] MEDS: ACETAMINOPHEN 325 MG TAB PO PRN (20:05)
[2022-06-24] MEDS: HEPARIN SOD 5,000 UNIT/0.5 ML VIAL SQ SCH ×3 (00:29→16:18)
--- NOTE | 2022-06-24 08:13 | Nephrology Progress Note ---
Date of Service June 24, 2022 Assessment & Plan (1) CKD (chronic kidney disease) stage 4, GFR 15-29 ml/min: Plan: recent USS shows Echogenic kidneys bilaterally, compatible with CKD with bilateral cyst, R- 9.7 , l-9.2 cm - Most likley etiology renal vascular disease, superimposed with Cardio renal pathology. Slowly progressive. Given the fact that he has been non compliant with medication and follow up, with episodes of TISHA anduncontrolled HTN,he is high risk of progression to ESRD. -daily bmp -strict I/O, daily wts >avoid nephrotoxins;defer starting any ACEI/ARB for now -suspect his new baseline will be creatiine mid 2's or early CKD 4 From renal standpoint he could be d/c but if he stays in house will follow peripherally weekly bmp x 3 to be ordered by nephro RN He will need to be followed by Nephrology with discharge appt (non urgent in 2-3 weeks) preferably w/ Branch will also need cardiology f/u D/c on current meds; hold chris/arb prior to d/c (2) Combined systolic and diastolic congestive heart failure: Plan: As per cardiology , - continue with Diuresis . - daily weight >> strongly recommend STANDING weights; though not floridly overloaded currently (3) PRES (posterior reversible encephalopathy syndrome): Plan: attributed to cerebrovascular autodysregulation and TISHA on CKD (4) Hypertensive urgency: Plan: resolved now - SBP noted to be 210s upon arrival at the ER. Goal SBP is 130-140s > he is at goal - Better controlled now on Amlodipine, BB, Hydralazine, and lasix 40 mg daily -off imdur d/t ATWOOD Admission and Anticipated Discharge Date Admission Date: June 17, 2022 Subjective ongoing ATWOOD yesterday w/ w/u concerning for PRES related to cerebrovascular autodysregulation +/- TISHA on CKD. cardiology has signed off w/ f/u plan in place. pt feels ok; very concerned /anxious about kidney dz. ATWOOD gone. no n/v, no dyspnea, no edema; no new/worrisome vioding concerns Review of Systems Review of Systems: All systems reviewed & are unremarkable except as noted in Subjective Physical Exam Constitutional: well developed, + thin and + cachectic; no acute distress Eyes: EOM intact bilaterally ENMT: Ears: no external ear abnormality Nose: no external nose abnormality Mouth: + dry oral mucous membranes Neck: no nuchal rigidity Respiratory: normal respiratory effort Auscultation: + diminished lung sounds Cardiovascular: RRR, no murmur, no edema Gastrointestinal (Abdomen): Inspection/Auscultation: normal bowel sounds Pe rcussion/Palpation: abdomen soft; abdomen nontender Musculoskeletal: Extremities: strength 5/5 throughout Skin: no rashes, warm and dry Psychiatric: Orientation: alert and oriented x 3 Speech: normal rate/rhythm/volume of speech Affect: + anxious affect (slight) Results & Data ([facility]) Vital Signs (Past 12 Hours) Vital Signs Temp Pulse Resp BP Pulse Ox O2 Del Method 06/24/22 07:16 36.7 C 64 16 135/82 98 Room Air Laboratory Results 06/22/22 07:32 06/23/22 09:15 Diagnostic Findings MRI reviewed
[2022-06-24] MEDS: cefTRIAXone SODIUM 2,000 MG in DEXTROSE 5% 50 ML IV SCH (08:30)
[2022-06-24] MEDS: amLODIPine BESYLATE 5 MG TAB PO SCH (08:30)
[2022-06-24] MEDS: FUROSEMIDE 40 MG TAB PO SCH (08:30)
[2022-06-24] MEDS: METOPROLOL SUCC 50MG EXT REL TAB PO SCH ×2 (08:30→20:58)
[2022-06-24] MEDS: hydrALAZINE HCL 25 MG TAB PO SCH ×3 (08:30→20:58)
--- NOTE | 2022-06-24 13:33 | Hospitalist Progress Note ---
Date of Service June 24, 2022 Assessment & Plan (1) Hypertensive crisis: (2) PRES (posterior reversible encephalopathy syndrome): (3) Acute systolic heart failure: (4) Noncompliance with medication regimen: (5) Demand ischemia: (6) Depression: (7) Aortic stenosis: (8) CKD (chronic kidney disease), stage III: (9) MATRIX PLATER Lyme disease: Plan 57 yo M with HTN and h/o reduced EF presents with hypertensive crisis as a result of medical noncompliance. Improved with diuretic therapy and is net negative fluid balance. Metoprolol succinate for GDMT with imdur 30mg added, then stopped on 06/21 bc of ATWOOD and concerned for side effects. Cont Norvasc per home regimen. No increases so to avoid edema as a possibility. Aldactone started per nephrology, Lasix IV converted to PO daily, cont to check replete K as needed during this transition/ Renal us reveals evidence of chronic disease Nephrology consulted for CKD CKD likely related to uncontrolled HTN; along the same lines he has diastolic dysfunction seen on echo Appreciate nephro involvement-->holding off on ACEI/ARB at this time given creat 2.4 Will renally dose meds as needed and monitor electrolytes daily. Additional hydralazine for improved BP control per cardiology, BP controlled in the 130s, stopping telemetry and plan for dc in am. Toprol was increased per cardiology. Will cont to closely monitor. Headache-now resolved. has h/o migraines. MRI revealed PRES. 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 06/23: Equivocal Lyme panel with sensation loss in fingers and ongoing posterior headache. No fever or other signs of meningitis. Do not feel we need a lumbar puncture at this point, but will cont with Rocephin for now. If not improved, will consider adding back sertraline. 06/24: No ATWOOD, finger sensation is resolved. Possible Raynauds? BP at goal, creat is 2.5 which is likely around his new baseline. He needs to follow with Dr. Branch in the clinic in 3 weeks time Full Code DVT proph: heparin Dispo-declines rehab and [facility]. Not ready to return home alone just yet. Doesn't have transportation to obtain outpatient meds/doctors visits, etc. Cont hospitalization for now. Sophia Mauro DO [facility] Hospitalist Admission and Anticipated Discharge Date Admission Date: June 17, 2022 Subjective 57-year-old man admitted with worsening shortness of breath and acute heart failure reports numbness in his fingers bilaterally has improved and thinks it may have been related to vasospasms no ATWOOD reported today we discussed his plan for home tomorrow and he is in agreement with that waiting on clinical improvement with respect to his headache and had numbeness and pending Lyme serology BP is at goal and he has been ambulating. We discussed how he obtains food at home and he tells me that a friend takes him for groceries when needed Review of Systems Review of Systems: All systems reviewed negative except as indicated above Physical Exam Physical Exam: CONSTITUTIONAL: thin with muscle wasting along his back and extremities, vitals as above, generally well-appearing EYES: normal conjunctivae, no scleral icterus ENT: external ear and nose normal, MMM NECK: trachea midline, RESPIRATORY: clear to auscultation bilaterally, no crackles, rales or wheezes, normal respiratory effort CARDIOVASCULAR: regular rate and rhythm, S1 and 2 heard without murmurs, gallops or rubs, no JVD, no peripheral edema CHEST: inspection of chest was normal GASTROINTESTINAL: soft, nontender, ND, no guarding MUSCULOSKELETAL: strength 5/5 throughout, head is normocephalic and atraumatic SKIN: warm and dry NEUROLOGIC: CN 2-12 grossly intact, no sensory deficit, normal cognition, normal speech, no tremor PSYCHIATRIC: alert cooperative and oriented to person, place and time. Euth ymic mood, makes good eye contact, language grossly intact, recent and remote memory grossly intact. Results & Data Results & Data [facility]) Vital Signs (Past 12 Hours) Vital Signs Temp Pulse Resp BP Pulse Ox O2 Del Method 06/24/22 07:16 36.7 C 64 16 135/82 98 Room Air Medications Administered Current Inpatient Medications Acetaminophen (Acetaminophen 325 Mg Tab) 650 mg PO Q4H PRN PRN Reason: Pain or Fever Stop: 07/17/22 23:32 Last Admin: 06/23/22 20:05 Dose: 650 mg Amlodipine Besylate (Amlodipine Besylate 5 Mg Tab) 5 mg PO QAM [facility] Stop: 07/19/22 08:59 Last Admin: 06/24/22 08:30 Dose: 5 mg Furosemide (Furosemide 40 Mg Tab) 40 mg PO QAM [facility] Stop: 07/20/22 08:59 Last Admin: 06/24/22 08:30 Dose: 40 mg Heparin Sodium (Porcine) (Heparin Sod 5,000 Unit/0.5 Ml Vial) 5,000 units SQ Q8H [facility] Stop: 07/18/22 00:00 Last Admin: 06/24/22 07:02 Dose: Not Given Hydralazine HCl (Hydralazine Hcl 25 Mg Tab) 75 mg PO TID [facility] Stop: 07/21/22 02:14 Last Admin: 06/24/22 08:30 Dose: 75 mg Promethazine HCl 6.25 mg/ (Sodium Chloride) 50.25 mls @ 201 mls/hr IV Q6H PRN PRN Reason: Nausea And Vomiting Stop: 07/17/22 23:32 Ceftriaxone Sodium 2,000 mg/ (Dextrose) 70 mls @ 100 mls/hr IV Q24H [facility]; Protocol Stop: 07/03/22 08:59 Last Infusion: 06/24/22 09:14 Dose: Infused Lorazepam (Lorazepam 0.5 Mg Tab) 0.25 mg PO TID PRN PRN Reason: Anxiety Stop: 07/17/22 23:32 Last Admin: 06/21/22 16:01 Dose: 0.25 mg Metoprolol Succinate (Metoprolol Succ 50mg Ext Rel Tab) 50 mg PO BID [facility] Stop: 07/21/22 20:59 Last Admin: 06/24/22 08:30 Dose: 50 mg
[2022-06-25] MEDS: HEPARIN SOD 5,000 UNIT/0.5 ML VIAL SQ SCH ×2 (00:04→08:41)
[2022-06-25 02:53] LABS: 18KDIGG Band NON-REACTIVE; 23KDIGG Band NON-REACTIVE; 23KDIGM Band NON-REACTIVE; 28KDIGG Band NON-REACTIVE; 30KDIGG Band NON-REACTIVE; 39KDIGG Band NON-REACTIVE; 39KDIGM Band NON-REACTIVE; 41KDIGG Band NON-REACTIVE; 41KDIGM Band NON-REACTIVE; 45KDIGG Band NON-REACTIVE; 58KDIGG Band NON-REACTIVE; 66KDIGG Band NON-REACTIVE; 93KDIGG Band NON-REACTIVE; Lyme Antibodies, WB IgG NEGATIVE (NEGATIVE); Lyme Antibodies, WB IgM NEGATIVE (NEGATIVE)
[2022-06-25] MEDS: METOPROLOL SUCC 50MG EXT REL TAB PO SCH (08:41)
[2022-06-25] MEDS: amLODIPine BESYLATE 5 MG TAB PO SCH (08:43)
[2022-06-25] MEDS: hydrALAZINE HCL 25 MG TAB PO SCH (08:43)
[2022-06-25] MEDS: FUROSEMIDE 40 MG TAB PO SCH (08:43)
[2022-06-25 08:50] LABS: Hematocrit (blood only) 39.4 % (42.0-52.0); Hemoglobin 13.6 g/dl (14.0-18.0); Mean Corpuscular Hemoglobin 31.3 pg (25.0-34.0); Mean Corpuscular Hgb Conc 34.5 g/dL (32.0-36.0); Mean Corpuscular Volume 90.6 fL (80.0-100.0); Platelet Count 255 K/uL (130-400); RDW Coefficient of Variation 12.8 % (11.5-14.5); RDW Standard Deviation 42.5 fL (36.4-46.3); Red Blood Count 4.35 M/uL (4.70-6.10); White Blood Count 4.06 K/ul (4.8-10.8)
[2022-06-25 09:01] LABS: BUN Creatinine Ratio 17.9 (10-20); C Reactive Protein 1.58 mg/dl (0-0.5); Calcium 8.8 mg/dl (8.5-10.1); Creatinine Clr Calc Pharmacy 23.7 ml/min; Est GFR (African American) 30.8 ml/min; Est GFR (Non-African American) 26.6 ml/min; Magnesium 2.2 mg/dl (1.7-2.4); Phosphorus 4.3 mg/dl (2.5-4.9); Potassium 3.6 mmol/L (3.5-5.1)
--- NOTE | 2022-06-25 13:25 | Discharge Summary ---
Discharge Summary Date of Service June 25, 2022 Notes For Next Care Provider Social obstacles include no access to computer or cell phone, farhad doesn't drive. Appreciate any help with connecting him with resources (eg; [facility]) to help keep him compliant. He needs followup with Cardiology for titration of medications for acute heart failure 2/2 NICM Farhad needs Nephrology followup for CKD that is progressed. He has been noncompliant with sertraline and remeron prior to this admission and these were not continued He did well without them and these were discontinued at discharge. Medication Changes From Visit Furosemide 40mg PO daily Hydralazine 75mg PO TID Toprol XL 25mg PO BID Amlodipine 5mg PO daily Admission HPI Per Admitting Provider History obtained from patient and records. Medical history significant for chronic diastolic heart failure (EF 55 to 59%, TTE 2018), valvular heart disease (mild MR/TR ), HTN, mood disorder, CRI (b aseline creatinine 1.8), past alcohol/tobacco abuse, medication noncompliance. Last confinement December 2017 for CHF. TTE showed EF noted to be 25 to 30% and severe MR, pulmonary hypertension, and moderate pericardial effusion. Improved EF of 55-5 9% on outpatient TTE from 2019. Patient stopped taking home medications more than a year ago because he felt tired taking them. Last week, patient noted shortness of breath worse on exertion with transient chest tightness and headache symptoms. Bilateral leg swelling with some weight gain noted. No unusual cough symptoms. Patient denies abdominal pain/black/bloody stools/hematuria. Last alcoholic drink was years ago as per patient SBP noted to be 210s upon arrival at the ER. Nitro drip, hydralazine, and Lasix administered at the ER. Medical History as above Surgical History : None Family History : Hypertension Personal/Social history : Past tobacco/alcohol abuse, unemployed Principal Dx & Hospital Course #1 = Principal Diagnosis (1) Hypertensive crisis: (2) PRES (posterior reversible encephalopathy syndrome): (3) Acute systolic heart failure: (4) Noncompliance with medication regimen: (5) Demand ischemia: (6) Depression: (7) CKD (chronic kidney disease), stage III: Plan 57 yo M with uncontrolled hypertension and history amos reduced EF presented with hypertensive crisis because of medical noncompliance. He described orthopnea and a dull ache in his chest that improved with diuretic therapy. An elevated troponin was likely related to demand ischemia in the setting of cardiomyopathy with strain from hypertension and acute on chronic renal failure. ACS was ruled out. An echo revealed LVH, moderately reduced LV systolic function with an EF 35-40% and moderate global hypokinesis. Grade II diastolic dysfunction, and right ventricular systolic function was reduced. Mod TR seen with a small circumferential pericardial effusion with no echocardiographic indications of cardiac tamponade. He was placed on GDMT and the importance of staying compliant with this was reinforced. Nephrology was consulted for worsening renal function. He was found to have proteinuria and his baseline creatinine was uncertain with creatinine this admission ranging from 2.3 to 2.6. As a result, ACEI/ARB initiation was deferred. Renal ultrasound revealed bilateral echogenic kidneys compatible with CKD. Uncontrolled blood pressure and episodes of TISHA put him at high risk of progression to ESRD. He developed a recurrent posterior headache during this admission, so underwent an MRI of the brain which revealed PRES. Lyme disease was also in the differential and a Lyme panel was drawn. Initially, the IgM was equivocal, and he was reporting sensations of numbness in his fingertips. Ceftriaxone 2grams IV daily was started for possible PRIMARY CARE MD Lyme. However, after two days the Lyme test returned negative, and the antibiotics were stopped. The numbness was felt by the patient to be Raynauds phenomenon which he had previously discussed with his primary care provider. At time of discharge his blood pressure was improved and he was asymptomatic. HE was discharged in stable condition with close primary care follow-up. Notably this patient doesnt drive and has friends who help him to get groceries and medications. He also doesnt have a computer or a cell phone and prides himself on living somewhat off the grid. His brother and longtime roommate is now permanently at [facility] with a disability and this patient is alone. Appreciate PCP assistance with connecting him with resources to help keep him compliant with GDMT. Discharge Exam CONSTITUTIONAL: thin with muscle wasting along his back and extremities, vitals as above, generally well-appearing EYES: normal conjunctivae, no scleral icterus ENT: external ear and nose normal, MMM NECK: trachea midline, RESPIRATORY: clear to auscultation bilaterally, no crackles, rales or wheezes, normal respiratory effort CARDIOVASCULAR: regular rate and rhythm, S1 and 2 heard without murmurs, gallops or rubs, no JVD, no peripheral edema CHEST: inspection of chest was normal GASTROINTESTINAL: soft, nontender, ND, no guarding MUSCULOSKELETAL: strength 5/5 throughout, head is normocephalic and atraumatic SKIN: warm and dry NEUROLOGIC: CN 2-12 grossly intact, no sensory deficit, normal cognition, normal speech, no tremor PSYCHIATRIC: alert cooperative and oriented to person, place and time. Euthymic mood, makes good eye contact, language grossly intact, recent and remote memory grossly intact. Updated Medication List Medication Instructions Recorded Confirmed Type amlodipine 5 mg tablet 5 mg PO QAM #30 tabs 06/25/22 Rx furosemide 40 mg tablet 40 mg PO QAM #30 tabs 06/25/22 Rx hydralazine 25 mg tablet 75 mg PO TID #270 tabs 06/25/22 Rx metoprolol succinate 25 mg 25 mg PO BID #60 tabs 06/25/22 Rx tablet,extended release 24 hr (Toprol XL) Hospital Stay Data Consultations 06/17/22 19:20 ED Decision to Admit Stat 06/17/22 23:33 Consult Cardiology Routine 06/18/22 17:07 Consult Nephrology Routine 06/22/22 07:31 Consult Neurology Routine Diagnostic Imagining Performed 06/17/22 20:04 CT head/brain wo con Urgent 06/18/22 00:00 US renal/blad retro comp Routine 06/21/22 17:30 MRI Brain [MR brain wo con] Routine Pending Results Patient Have Any Pending Studies at Discharge: No Discharge Instructions Given to Patient (Per Discharging Provider) Please take all medications as instructed on discharge list below. It is important to take all you blood pressure medications as prescribed. Also, you will need to follow-up with your primary care provider in one week to recheck this and take labwork/titrate medication dosing as needed. You were found to have an abnormal MRI of the brain thought 2/2 elevated blood pressure. A repeat MRI brain without contrast is recommended in two weeks time. This may be ordered by your primary care provider on follow-up. Please followup [facility] Nephrology in 3 weeks post hospital discharge to recheck kidney function and establish outpatient care. You were seen by Dr. Caitie Branch in the hospital. It was a pleasure taking care of you! Please call if you have any questions or problems. You can reach a [facility] hospitalist on duty at [facility] 24 hours a day by calling [phone]. Take care of yourself. Sophia Mauro, [facility] Center[facility] Total Time Total Time Spent Total Time Spent (In Minutes): 60
--- NOTE | 2022-06-26 05:14 | Electrocardiogram Report ---
Test Reason : Blood Pressure : / mmHG Vent. Rate : 058 BPM Atrial Rate : 058 BPM P-R Int : 122 ms QRS Dur : 136 ms QT Int : 460 ms P-R-T Axes : 103 018 230 degrees QTc Int : 451 ms Sinus bradycardia Left ventricular hypertrophy with QRS widening and repolarization abnormality Cannot rule out Inferior infarct , age undetermined Abnormal ECG When compared with ECG of 18-JUN-2022 10:34, QRS duration has increased ST more depressed Inferior leads Confirmed by Philip Alexandra ([id number]) on 06/26/2022 5:14:50 AM Referred By: REFERRED SELF Confirmed By:Philip Alexandra
== END 2022-06-25 14:00 | disposition home or self-care (01) | DRG 291 ==
LOC: ED 16:57 → 2S 21:51 → 3N 06-22 20:51

== ENCOUNTER 2022-06-26 14:19 | Observation (INO) ==
[2022-06-26 16:13] LABS: Basophils # (auto) 0.05 K/uL (0-0.2); Basophils % (auto) 0.6 %; Eosinophils # (auto) 0.09 K/uL (0-0.50); Eosinophils % (auto) 1.1 %; Hematocrit (blood only) 43.3 % (42.0-52.0); Hemoglobin 14.7 g/dl (14.0-18.0); Immature Granulocytes # (auto) 0.02 K/uL (0.01-0.20); Immature Granulocytes % (auto) 0.2 %; Lymphocytes # (auto) 0.65 K/uL (1.2-3.4); Lymphocytes % (auto) 8.1 %; Mean Corpuscular Hemoglobin 31.1 pg (25.0-34.0); Mean Corpuscular Hgb Conc 33.9 g/dL (32.0-36.0); Mean Corpuscular Volume 91.5 fL (80.0-100.0); Mean Platelet Volume 9.7 fL (9.4-12.4); Monocytes # (auto) 0.59 K/uL (0.11-0.59); Monocytes % (auto) 7.4 %; Neutrophils # (auto) 6.62 K/uL (1.40-6.50); Neutrophils % (auto) 82.6 %; Platelet Count 311 K/uL (130-400); RDW Coefficient of Variation 12.8 % (11.5-14.5); RDW Standard Deviation 43.1 fL (36.4-46.3); Red Blood Count 4.73 M/uL (4.70-6.10); White Blood Count 8.02 K/ul (4.8-10.8)
[2022-06-26 16:34] LABS: Alanine Aminotransferase 30 U/L (7-52); Albumin Globulin Ratio 1.5 (0.9-2); Albumin Level 4.3 gm/dl (3.4-5.0); Alkaline Phosphatase 91 U/L (34-104); Anion Gap 9 (3-11); Aspartate Aminotransferase 26 U/L (13-39); BUN Creatinine Ratio 21.2 (10-20); Bilirubin,Total 0.4 mg/dl (0.2-1.0); Blood Urea Nitrogen 50 mg/dl (6-23); Calcium 9.4 mg/dl (8.5-10.1); Carbon Dioxide 27 mmol/L (21-32); Chloride 103 mmol/L (98-107); Est GFR (African American) 34.1 ml/min; Est GFR (Non-African American) 29.5 ml/min; Globulin 2.9 gm/dl (2.5-4.0); Glucose 94 mg/dl (70-99(Fasting)); Potassium 3.4 mmol/L (3.5-5.1); Sodium 139 mmol/L (136-145); Total Protein 7.2 gm/dl (6.0-8.3)
[2022-06-26 16:40] LABS: Troponin I High Sensitivity 22.5 pg/ml (0-20)
--- NOTE | 2022-06-26 16:53 | Emergency Department Note ---
History of Present Illness General Chief complaint: Weakness Stated complaint: WEAKNESS Time Seen by Provider: 06/26/22 16:38 Source: patient Mode of arrival: ambulatory Limitations: no limitations History of Present Illness This patient is a 57-year-old male who was just discharged from the hospital yesterday after being evaluated for weakness and progress, comes in after he feels like he cannot walk at home has no strength and is weak. He is here with his friend who is concerned about him being will do to take care of himself and falling at home he has not fallen but he is felt like he might his weakness is diffuse and is nonfocal. He has had difficulty speaking or swallowing. No change in vision. He has no chest pain or shortness of breath or cough. No blood or melena in the stool. No fever chills no headache he has some minimal neck tenderness. He has no dysuria hematuria. He says he has been take his medications as directed has not missed any. His friend thinks he went home too soon and feels he cannot take care of himself and is worried about his ambulation Home Medications Medication Instructions Recorded Confirmed Type amlodipine 5 mg tablet 5 mg PO QAM #30 tabs 06/25/22 06/26/22 Rx furosemide 40 mg tablet 40 mg PO QAM #30 tabs 06/25/22 06/26/22 Rx hydralazine 25 mg tablet 75 mg PO TID #270 tabs 06/25/22 06/26/22 Rx metoprolol succinate 25 mg 25 mg PO BID #60 tabs 06/25/22 06/26/22 Rx tablet,extended release 24 hr (Toprol XL) Allergies Allergy/AdvReac Type Severity Reaction Status Date / Time No Known Allergies Allergy Unknown Verified 06/17/22 21:17 Past Med/Surg History Medical History (Updated 06/26/22 @ 23:20 by Job Rosales MD) Alcohol abuse Chronic combined systolic and diastolic CHF (congestive heart failure) CKD (chronic kidney disease) stage 4, GFR 15-29 ml/min Depression Dyslipidemia HTN (hypertension) PRES (posterior reversible encephalopathy syndrome) Suicide attempt Tricuspid regurgitation Surgical History No significant past surgical history Family History Mother Hypertension Social History Smoking Status: Current every day smoker Second Hand Exposure: No; Hx Alcohol Use: No Hx Substance Use: No Preferred Language: Grenadian Communication Ability: Effective Optical Scientist Required: No Beliefs That Will Affect Care: None marital status: Single Current Living Situation: Alone Current Living Situation Comment: Lives alone while brother is at snf How many Children do You have: 0 Other Information That Helps Us Care for You: No Feels Safe at Home: Yes Safety Concerns: Feels Safe At This Time Assistive Devices: Glasses Review of Systems A total of 10 systems reviewed and were otherwise negative Physical Exam Vital Signs Vital Signs - 24 hr 06/26/22 14:22 06/26/22 16:49 06/26/22 16:49 Temperature 36.9 C Temperature Source Temporal Artery Scan Pulse Rate 74 65 66 Pulse Rate from SpO2 Sensor 66 Respiratory Rate 18 20 Respiratory Depth Normal Pulse Oximetry 97 99 Oxygen Delivery Method Room Air Sepsis Recent Fever Within 48 Hours No Sepsis New/Unexplained Change in Mental Status No Sepsis Action Taken by Nursing No Action Required 06/26/22 16:50 06/26/22 17:06 06/26/22 17:10 Temperature Temperature Source Pulse Rate 68 75 73 Pulse Rate from SpO2 Sensor 67 78 73 Respiratory Rate 24 17 29 H Respiratory Depth Pulse Oximetry 98 99 99 Oxygen Delivery Method Sepsis Recent Fever Within 48 Hours Sepsis New/Unexplained Change in Mental Status Sepsis Action Taken by Nursing 06/26/22 17:20 06/26/22 17:30 Temperature Temperature Source Pulse Rate 70 68 Pulse Rate from SpO2 Sensor 70 69 Respiratory Rate 20 18 Respiratory Depth Pulse Oximetry 98 98 Oxygen Delivery Method Sepsis Recent Fever Within 48 Hours Sepsis New/Unexplained Change in Mental Status Sepsis Action Taken by Nursing General: Well developed well nourished [id number] slender middle-age male who appears in no acute distress, breathing comfortably on room air. Normal speech, nonslurred. Normal thought process and affect. Alert and orient x3 HEENT: Normal cephalic atraumatic. Pupils are equal round and reactive to light . Extraocular movements are intact. Oropharynx is pink with moist mucous membranes. No swelling of the mouth lips or tongue. Neck: Supple with a midline trachea. No meningeal signs or stiffness, no JVD or bruits. No Stridor. Chest: Clear to auscultation bilaterally. No wheezes or rhonchi. No increased work of breathing. Heart: Regular rate and rhythm without murmurs or gallops. Abdomen: Soft nontender, nondistended without rebound guarding or rigidity. Extremities: No cyanosis clubbing or edema. No calf tenderness or assymetry Spine/Back. Non tender to palpation. No CVA tenderness Skin: Good turgor without rashes. Neurologic exam: Cranial nerves two through 12 are intact. Motor and sensation are intact and symmetrical throughout. No tremor. Course Administered Medications Acetaminophen (Acetaminophen 325 Mg Tab) 650 mg PO Q4H PRN PRN Reason: pain/fever Stop: 07/26/22 21:01 Last Admin: 06/26/22 21:59 Dose: 650 mg Documented By: RUTH Heparin Sodium (Porcine) (Heparin Sod 5,000 Unit/0.5 Ml Vial) 5,000 units SQ Q8 [facility] Stop: 07/26/22 21:59 Last Admin: 06/26/22 21:42 Dose: Not Given Documented By: RUTH Hydralazine HCl (Hydralazine Hcl 25 Mg Tab) 75 mg PO TID [facility] Stop: 07/26/22 21:01 Last Admin: 06/26/22 21:41 Dose: 75 mg Documented By: RUTH Metoprolol Succinate (Metoprolol Succ 25mg Ext Rel Tab) 25 mg PO BID [facility] Stop: 07/26/22 21:01 Last Admin: 06/26/22 21:41 Dose: 25 mg Documented By: RUTH Discontinued Medications Potassium Chloride (Potassium Chloride Crtab 20 Meq Tabcr) 40 meq PO NOW [facility] Stop: 06/26/22 18:32 Last Admin: 06/26/22 19:59 Dose: 40 meq Documented By: MARGO Medical Decision Making Differential Diagnosis Hypertension, electrolyte or metabolic abnormality, infection, deconditioning, intracranial process, toxicologic or metabolic Medical Records Attestation: I reviewed the patient's medical records. Home Medications Current Medication List: was personally reviewed by me Laboratory Data Attestation: I reviewed the patient's lab results. 06/26/22 15:56 06/26/22 15:56 Lab Results 06/26/22 06/26/22 06/26/22 Range/Units 15:56 15:56 15:56 WBC 8.02 (4.8-10.8) K/ul RBC 4.73 (4.70-6.10) M/uL Hgb 14.7 (14.0-18.0) g/dl Hct 43.3 (42.0-52.0) % MCV 91.5 (80.0-100.0) fL MCH 31.1 (25.0-34.0) pg MCHC 33.9 (32.0-36.0) g/dL RDW Std Deviation 43.1 (36.4-46.3) fL RDW Coeff of Juliette 12.8 (11.5-14.5) % Plt Count 311 (130-400) K/uL MPV 9.7 (9.4-12.4) fL Immature Gran % (Auto) 0.2 % Neut % (Auto) 82.6 % Lymph % (Auto) 8.1 % [place] % (Auto) 7.4 % Eos % (Auto) 1.1 % Baso % (Auto) 0.6 % Neut # (Auto) 6.62 H (1.40-6.50) K/uL Lymph # (Auto) 0.65 L (1.2-3.4) K/uL [place] # (Auto) 0.59 (0.11-0.59) K/uL Eos # (Auto) 0.09 (0-0.50) K/uL Baso # (Auto) 0.05 (0-0.2) K/uL Immature Gran # (Auto) 0.02 (0.01-0.20) K/uL Sodium 139 (136-145) mmol/L Potassium 3.4 L (3.5-5.1) mmol/L Chloride 103 (98-107) mmol/L Carbon Dioxide 27 (21-32) mmol/L Anion Gap 9 (3-11) BUN 50 H (6-23) mg/dl Creatinine 2.36 H (0.6-1.4) mg/dl Est Cr Clr Drug Dosing Not Reportable Est GFR ( Amer) 34.1 ml/min Est GFR (Non-Af Amer) 29.5 ml/min BUN/Creatinine Ratio 21.2 H (10-20) Glucose 94 (70-99(Fasting)) mg/dl Calcium 9.4 (8.5-10.1) mg/dl Magnesium 2.3 (1.7-2.4) mg/dl Total Bilirubin 0.4 (0.2-1.0) mg/dl AST 26 (13-39) U/L ALT 30 (7-52) U/L Alkaline Phosphatase 91 (34-104) U/L Troponin I High Sens 22.5 H (0-20) pg/ml Total Protein 7.2 (6.0-8.3) gm/dl Albumin 4.3 (3.4-5.0) gm/dl Globulin 2.9 (2.5-4.0) gm/dl Albumin/Globulin Ratio 1.5 (0.9-2) TSH 1.627 (0.300-4.500) uIu/ml SARS-CoV-2, RNA, NAAT (NEGATIVE) 06/26/22 Range/Units 16:50 WBC (4.8-10.8) K/ul RBC (4.70-6.10) M/uL Hgb (14.0-18.0) g/dl Hct (42.0-52.0) % MCV (80.0-100.0) fL MCH (25.0-34.0) pg MCHC (32.0-36.0) g/dL RDW Std Deviation (36.4-46.3) fL RDW Coeff of Juliette (11.5-14.5) % Plt Count (130-400) K/uL MPV (9.4-12.4) fL Immature Gran % (Auto) % Neut % (Auto) % Lymph % (Auto) % [place] % (Auto) % Eos % (Auto) % Baso % (Auto) % Neut # (Auto) (1.40-6.50) K/uL Lymph # (Auto) (1.2-3.4) K/uL [place] # (Auto) (0.11-0.59) K/uL Eos # (Auto) (0-0.50) K/uL Baso # (Auto) (0-0.2) K/uL Immature Gran # (Auto) (0.01-0.20) K/uL Sodium (136-145) mmol/L Potassium (3.5-5.1) mmol/L Chloride (98-107) mmol/L Carbon Dioxide (21-32) mmol/L Anion Gap (3-11) BUN (6-23) mg/dl Creatinine (0.6-1.4) mg/dl Est Cr Clr Drug Dosing Est GFR ( Amer) ml/min Est GFR (Non-Af Amer) ml/min BUN/Creatinine Ratio (10-20) Glucose (70-99(Fasting)) mg/dl Calcium (8.5-10.1) mg/dl Magnesium (1.7-2.4) mg/dl Total Bilirubin (0.2-1.0) mg/dl AST (13-39) U/L ALT (7-52) U/L Alkaline Phosphatase (34-104) U/L Troponin I High Sens (0-20) pg/ml Total Protein (6.0-8.3) gm/dl Albumin (3.4-5.0) gm/dl Globulin (2.5-4.0) gm/dl Albumin/Globulin Ratio (0.9-2) TSH (0.300-4.500) uIu/ml SARS-CoV-2, RNA, NAAT NEGATIVE (NEGATIVE) Imaging Data Attestation: I personally reviewed and interpreted this imaging study as follows: My Impression: Chest x-rayno acute infiltrate, failure, pneumothorax seen. Head CTno hemorrhage or mass effect seen Radiologist's Impression: Chest X-Ray 06/26/22 16:47 XR chest 1V portable HISTORY: 57 years-old Male weakness acute weakness COMPARISON: Chest radiograph 06/17/2022 TECHNIQUE: AP view of the chest FINDINGS: Cardiac silhouette is mildly enlarged. No pneumothorax, pleural effusion, airspace consolidation or pulmonary edema. Bones of the chest appear grossly intact. IMPRESSION: No acute process. ACT 112: Negative or not required by law. The above report was generated using voice recognition software. It may contain grammatical, syntax or spelling errors. Electronically signed by: Joshua Phillips M.D. 06/26/2022 5:[address] 06/26/22 16:47 CT head/brain wo con CLINICAL HISTORY: 57 years-old Male with weakness. Acute weakness TECHNIQUE: Multiple axial CT images of the head were obtained without contrast. A dose lowering technique was utilized adhering to the principles of ALARA. CT DOSE: 537.48 mGy.cm COMPARISON: June 17, 2022, brain MRI June 21, 2022. FINDINGS: No acute intracranial hemorrhage, midline shift, intracranial mass, hydrocephalus, territorial ischemia or abnormal extra-axial collection. The previous noted white matter hypodensities seen on the 06/17/2022 exam have improved. The calvarium is intact. The paranasal sinuses, mastoid air cells, and middle ear cavities are clear. IMPRESSION: 1. No acute intracranial abnormality. 2. Improvement of the recently described white matter hypodensities, which likely represented posterior reversible encephalopathy syndrome (PRES). ACT 112: Negative or not required by law. The above report was generated using voice recognition software. It may contain grammatical, syntax or spelling errors. Electronically signed by: Joshua Phillips M.D. 06/26/2022 5:11 PM ECG Data Attestation: I personally reviewed and interpreted this ECG as follows: Indication: + weakness Rate (beats per minute): 71 Rhythm: + normal sinus ECG Intervals/blocks: + Normal QRS, + Normal QT and + Normal KS ECG [place]: + Left axis deviation ECG ST segments: + repolarization abnormalities ECG Findings: no PACs or no PVCs Comparison ECG Date: from (06/25/22) Change: no significant change MDM Narrative This patient comes in as described above. He was placed on a night monitor in room C6. he has been feeling weak since he left the hospital yesterday. He has a normal neurologic exam and does not have any history to suggest he has acute stroke. We did check a blood pressure here it was 179/110 which well at the eye is not likely causing his symptoms at this point. CAT scan of his head was obtained blood work was obtained he has baseline renal insufficiency. He has no chest pain or shortness of breath. EKG is unremarkable. He was further evaluated and was resting comfortably but is complaining that he feels too weak to go home. CAT scan was unremarkable. I did consult the [facility] hospitalist to come see him in the ER and further evaluate him for possible admission/observation Continuous night monitor, an order was placed in EMR for continuous cardiac monitoring. Upon my interpretation the patient was noted to be in normal sinus rhythm with a rate of 70. Impression & Plan Weakness, HTN (hypertension), CKD (chronic kidney disease) stage 4, GFR 15-29 ml/min, Lab test negative for COVID-19 virus Discharge Plan Visit Data Chief Complaint: Weakness Stated Complaint: WEAKNESS ED Provider: Job Rosales Discharge Problem: Weakness, HTN (hypertension), CKD (chronic kidney disease) stage 4, GFR 15-29 ml/min, Lab test negative for COVID-19 virus Patient Disposition: Admitted As Inpatient Discharge Instructions Interventions: ED Discharge Assessment Last Done: 06/26/22 20:48
--- NOTE | 2022-06-26 17:14 | CT Scan Report ---
CT head/brain wo con CLINICAL HISTORY: 57 years-old Male with weakness. Acute weakness TECHNIQUE: Multiple axial CT images of the head were obtained without contrast. A dose lowering tech nique was utilized adhering to the principles of ALARA. CT DOSE: 537.48 mGy.cm COMPARISON: June 17, 2022, brain MRI June 21, 2022. FINDINGS: No acute intracranial hemorrhage, midline shift, intracranial mass, hydrocephalus, territorial ischem ia or abnormal extra-axial collection. The previous noted white matter hypodensities seen on the 06/17 exam have improved. The calvarium is intact. The paranasal sinuses, mastoid air cells, and middle ear cavities are clear . IMPRESSION: 1. No acute intracranial abnormality. 2. Improvement of the recently described white matter hypodensities, which likely represented posteri or reversible encephalopathy syndrome (PRES). ACT 112: Negative or not required by law. The above report was generated using voice recognition software. It may contain grammatical, syntax o r spelling errors. Electronically signed by: Joshua Phillips M.D. 06/26/2022 5:11 PM
--- NOTE | 2022-06-26 17:35 | XRay Report ---
XR chest 1V portable HISTORY: 57 years-old Male weakness acute weakness COMPARISON: Chest radiograph 06/17/2022 TECHNIQUE: AP view of the chest FINDINGS: Cardiac silhouette is mildly enlarged. No pneumothorax, pleural effusion, airspace consolidation or p ulmonary edema. Bones of the chest appear grossly intact. IMPRESSION: No acute process. ACT 112: Negative or not required by law. The above report was generated using voice recognition software. It may contain grammatical, syntax o r spelling errors. Electronically signed by: Joshua Phillips M.D. 06/26/2022 5:32 PM
--- NOTE | 2022-06-26 18:18 | History & Physical Report ---
Date of Service June 26, 2022 Assessment & Plan (1) Weakness: Plan: Admit to [facility] [place] [place] with telemetry Patient presenting from home with reports of generalized weakness. Recently admitted to [facility] 06/17 through 06/25 for hypertensive crisis due to medication noncompliance. Patient was found to have reduced EF 35 to 40%. Patient developed a posterior headache and underwent brain MRI that was suggestive of PRES. Also noted to have worsening renal function that was stable during admission, felt to be due to uncontrolled blood pressure. Patient offered evaluation for rehab or home health and patient declined both services. Nonfocal exam PT/OT, case management consults for placement for rehab. Patient requesting to go to [facility] as his brother currently resides there. (2) Acute electrocardiogram changes: Plan: EKG shows a worsened T wave inversions in the inferior leads compared to EKG from 06/25/2022 Denies chest pain, troponin 22.5 (down from 82 on 06/18) Continue to trend troponin, repeat EKG in a.m. (3) HTN (hypertension): Plan: BP 165/101 the time my exam During recent admission, patient started on furosemide 40 mg daily, hydralazine 75 mg TID, Toprol 25 mg BID, and amlodipine 5 mg daily Continue medications at these doses for now, monitor BP and make adjustments as needed (4) CKD (chronic kidney disease) stage 4, GFR 15-29 ml/min: Plan: New baseline creatinine mid 2s Creatinine 2.3 today Monitor renal function (5) Chronic combined systolic and diastolic CHF (congestive heart failure): (6) Tricuspid regurgitation: Plan: Recent echo showed EF 35 to 40%, moderate global hypokinesis, grade 2 diastolic dysfunction, moderate tricuspid regurgitation Continue home dose furosemide Appears euvolemic Mild hypokalemia noted likely due to diuretic therapy, will replace and monitor electrolytes. Check Mg+. DVT PROPHYLAXIS SQ heparin I spent a total of 75 minutes coordinating, documenting, and providing care for this patient excluding time spent in the performance of separately billed services. This included personally reviewing all current laboratories and imaging studies, medication reconciliation, outpatient chart review, and discussion with specialists. History of Present Illness Chief Complaint: Generalized weakness Primary Care Provider: Veronika Rai MD 57-year-old male with PMH chronic diastolic and systolic CHF, tricuspid regurgitation, HTN, mood disorder, CKD stage IV, history of alcohol and tobacco abuse, medication noncompliance, and other problems listed below who presents to the ED for evaluation of generalized weakness. Patient recently admitted to [facility] 06/17 through 06/25 for hypertensive crisis due to medication noncompliance. Patient was found to have reduced EF 35 to 40%. Patient developed a posterior headache and underwent brain MRI that was suggestive of PRES. patient was also noted to have worsening renal function that was stable during admission, felt to be due to uncontrolled blood pressure. Patient was discharged on furosemide 40 mg daily, hydralazine 75 mg 3 times daily, Toprol 25 mg twice daily and amlodipine 5 mg daily. Patient was offered evaluation for rehab or home health. Patient declined both services the time of discharge. Patient reports he has felt generally weak since returning home. He reports that he has required a cane to walk. He feels as though he is unable to take care of himself. 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 He denies chest pain and shortness of breath. No lightheadedness, dizziness, diaphoresis, syncopal events. He reports a fair appetite however no abdominal pain, nausea, vomiting, diarrhea. No fevers or chills. Denies urinary symptoms. In the ED, labs are unremarkable. BP at the time my exam was 165/101. EKG shows deeper T wave inversions in the inferior leads. Troponin 22.5 (down from 82 on 06/18). Allergies Allergy/AdvReac Type Severity Reaction Status Date / Time No Known Allergies Allergy Unknown Verified 06/17/22 21:17 Home Medications Medication Instructions Recorded Confirmed Type amlodipine 5 mg tablet 5 mg PO QAM #30 tabs 06/25/22 06/26/22 Rx furosemide 40 mg tablet 40 mg PO QAM #30 tabs 06/25/22 06/26/22 Rx hydralazine 25 mg tablet 75 mg PO TID #270 tabs 06/25/22 06/26/22 Rx metoprolol succinate 25 mg 25 mg PO BID #60 tabs 06/25/22 06/26/22 Rx tablet,extended release 24 hr (Toprol XL) Past Med/Surg History Medical History (Updated 06/26/22 @ 18:33 by CASEY Guillaume) Alcohol abuse Chronic combined systolic and diastolic CHF (congestive heart failure) CKD (chronic kidney disease) stage 4, GFR 15-29 ml/min Depression Dyslipidemia HTN (hypertension) PRES (posterior reversible encephalopathy syndrome) Suicide attempt Tricuspid regurgitation Surgical History No significant past surgical history Family History Mother Hypertension Social History Smoking Status: Current some day smoker Second Hand Exposure: No; Hx Alcohol Use: No Hx Substance Use: No Preferred Language: Maltese Communication Ability: Effective [place]ade Hardware Installer Required: No Beliefs That Will Affect Care: None marital status: Single Current Living Situation: Alone Current Living Situation Comment: Lives with his brother Kaz. How many Children do You have: 0 Feels Safe at Home: No Is there a partner from a previous relationship who is making you feel unsafe now?: No Assistive Devices: None Review of Systems Review of Systems: ROS per HPI, all other systems reviewed and negative Physical Exam Constitutional: + thin; no acute distress Eyes: PERRL, conjunctivae normal, anicteric sclerae ENMT: external ear and nose normal, oropharynx normal Respiratory: normal respiratory effort, lungs clear to auscultation Cardiovascular: Rate/Rhythm: regular rate and regular rhythm Vessels: normal peripheral pulses Extremities: no edema Gastrointestinal (Abdomen): normal bowel sounds, soft, nontender, no hepatosplenomegaly Musculoskeletal: Extremities: no cyanosis and no clubbing Strength 3-4/5 throughout all extremities and equal Skin: no rashes, warm and dry Neurologic: PERRL, EOMI, accommodation nl, no face palsy, no dysarthria Psychiatric: Orientation: alert and oriented x 3 Affect: + depressed affect Results & Data Results & Data ([facility]) Vital Signs (Past 12 Hours) Vital Signs Temp Pulse Resp Pulse Ox O2 Del Method 06/26/22 16:49 65 06/26/22 14:22 36.9 C 74 18 97 Room Air Laboratory Results Short CBC 06/26/22 Range/Units 15:56 WBC 8.02 (4.8-10.8) K/ul Hgb 14.7 (14.0-18.0) g/dl Hct 43.3 (42.0-52.0) % Plt Count 311 (130-400) K/uL BMP 06/26/22 15:56 Sodium 139 Potassium 3.4 L Chloride 103 Carbon Dioxide 27 BUN 50 H Creatinine 2.36 H Glucose 94 Calcium 9.4 Liver Function 06/26/22 Range/Units 15:56 Total Bilirubin 0.4 (0.2-1.0) mg/dl AST 26 (13-39) U/L ALT 30 (7-52) U/L Alkaline Phosphatase 91 (34-104) U/L Albumin 4.3 (3.4-5.0) gm/dl Diagnostic Findings Short CBC 06/26/22 Range/Units 15:56 WBC 8.02 (4.8-10.8) K/ul Hgb 14.7 (14.0-18.0) g/dl Hct 43.3 (42.0-52.0) % Plt Count 311 (130-400) K/uL [facility] 06/26/22 15:56 Sodium 139 Potassium 3.4 L Chloride 103 Carbon Dioxide 27 BUN 50 H Creatinine 2.36 H Glucose 94 Calcium 9.4 Liver Function 06/26/22 Range/Units 15:56 Total Bilirubin 0.4 (0.2-1.0) mg/dl AST 26 (13-39) U/L ALT 30 (7-52) U/L Alkaline Phosphatase 91 (34-104) U/L Albumin 4.3 (3.4-5.0) gm/dl Code Status & VTE Plan Code Status Patient is a full code as per my discussion with him. VTE Prophylaxis Plan VTE Prophylaxis will be ordered: Yes Supervising Physician Co-Signing Physician Notes Patient was seen and examined. Chart reviewed. Case discussed with MEENAKSHI. Agree with assessment and plan as outlined above
[2022-06-26] MEDS ORDERED: POTASSIUM CHLORIDE CRTAB 20 MEQ TABCR PO STA (18:31)
[2022-06-26 18:50] LABS: Magnesium 2.3 mg/dl (1.7-2.4)
[2022-06-26] MEDS: hydrALAZINE HCL 25 MG TAB PO SCH (21:41)
[2022-06-26] MEDS: METOPROLOL SUCC 25MG EXT REL TAB PO SCH (21:41)
[2022-06-26] MEDS: HEPARIN SOD 5,000 UNIT/0.5 ML VIAL SQ SCH (21:42)
[2022-06-26] MEDS: ACETAMINOPHEN 325 MG TAB PO PRN (21:59)
[2022-06-27] MEDS: HEPARIN SOD 5,000 UNIT/0.5 ML VIAL SQ SCH ×3 (05:25→20:38)
--- NOTE | 2022-06-27 07:42 | Electrocardiogram Report ---
Test Reason : Blood Pressure : / mmHG Vent. Rate : 071 BPM Atrial Rate : 071 BPM P-R Int : 124 ms QRS Dur : 088 ms QT Int : 370 ms P-R-T Axes : 071 067 254 degrees QTc Int : 402 ms Normal sinus rhythm Left atrial enlargement Left ventricular hypertrophy with repolarization abnormality Abnormal ECG When compared with ECG of 25-JUN-2022 09:42, Criteria for Inferior infarct are no longer Present Confirmed by Jn Murillo ([id number]) on 06/27/2022 7:42:46 AM Referred By: REFERRED SELF Confirmed By:Jn Murillo
--- NOTE | 2022-06-27 07:43 | Electrocardiogram Report ---
Test Reason : Blood Pressure : / mmHG Vent. Rate : 058 BPM Atrial Rate : 058 BPM P-R Int : 122 ms QRS Dur : 130 ms QT Int : 464 ms P-R-T Axes : 083 069 242 degrees QTc Int : 455 ms Sinus bradycardia Left ventricular hypertrophy with QRS widening and repolarization abnormality Abnormal ECG When compared with ECG of 26-JUN-2022 16:43, No significant change Confirmed by Jn Murillo ([id number]) on 06/27/2022 7:43:20 AM Referred By: REFERRED SELF Confirmed By:Jn Murillo
[2022-06-27] MEDS: FUROSEMIDE 40 MG TAB PO SCH (08:43)
[2022-06-27] MEDS: METOPROLOL SUCC 25MG EXT REL TAB PO SCH ×2 (08:43→23:14)
[2022-06-27] MEDS: hydrALAZINE HCL 25 MG TAB PO SCH ×3 (08:43→20:39)
[2022-06-27] MEDS ORDERED: amLODIPine BESYLATE 5 MG TAB PO SCH (09:00)
[2022-06-27 09:45] LABS: BUN Creatinine Ratio 21.1 (10-20); Calcium 9.1 mg/dl (8.5-10.1); Creatinine Clr Calc Pharmacy 28.7 ml/min; Est GFR (African American) 37.6 ml/min; Est GFR (Non-African American) 32.4 ml/min; Potassium 3.3 mmol/L (3.5-5.1)
--- NOTE | 2022-06-27 15:06 | Hospitalist Progress Note ---
Date of Service June 27, 2022 Assessment & Plan (1) Weakness: Plan: Patient presenting from home with reports of generalized weakness. Recently admitted to [facility] 06/17 through 06/25 for hypertensive crisis due to medication noncompliance. Patient was found to have reduced EF 35 to 40%. Patient developed a posterior headache and underwent brain MRI that was suggestive of PRES. Also noted to have worsening renal function that was stable during admission, felt to be due to uncontrolled blood pressure. Patient offered evaluation for rehab or home health and patient declined both services but upon returning home realized he was too weak and returned to hospital. Now agreeable for rehab and requesting to go to [facility] as his brother currently resides there. PT/OT eval ordered CM consulted (2) Acute electrocardiogram changes: Plan: No chest pain Trop trend unchanged (3) HTN (hypertension): Plan: During recent admission, patient started on furosemide 40 mg daily, hydralazine 75 mg TID, Toprol 25 mg BID, and amlodipine 5 mg daily Continue medications at these doses for now, monitor BP and make adjustments as needed (4) CKD (chronic kidney disease) stage 4, GFR 15-29 ml/min: Plan: New baseline creatinine mid 2s Monitor renal function (5) Chronic combined systolic and diastolic CHF (congestive heart failure): Plan: Recent echo showed EF 35 to 40%, moderate global hypokinesis, grade 2 diastolic dysfunction, moderate tricuspid regurgitation Continue home dose furosemide Euvolemic on exam (6) Tricuspid regurgitation: Plan: Mild hypokalemia noted likely due to diuretic therapy, will replace and monitor electrolytes. Check Mg+. DVT PROPHYLAXIS SQ heparin Disposition- pending PT/OT eval and placement Admission and Anticipated Discharge Date Admission Date: June 26, 2022 Subjective Denies chest pain, shortness of breath. BP improved Tolerating diet Physical Exam Physical Exam: Thin, no acute distress, non toxic Respiratory: Breathing comfortably on room air, no wheezing/rhonchi Cardiovascular: regular rate and rhythm, no murmurs/rubs/gallops Gastrointestinal (Abdomen): soft, non tender Musculoskeletal: no edema Neurologic: awake, alert, spontaneously moving extremities Results & Data Results & Data ([facility]) Vital Signs (Past 12 Hours) Vital Signs Temp Pulse Resp BP Pulse Ox O2 Del Method 06/27/22 12:43 36.6 C 67 17 152/85 H 98 Room Air 06/27/22 08:26 36.9 C 61 17 157/90 H 97 Room Air 06/27/22 03:40 36.7 C 83 16 153/86 H 97 Room Air (3) HTN (hypertension) Hypertension type: unspecified Qualified Code(s): I10 - Essential (primary) hypertension
[2022-06-27] MEDS: POTASSIUM CHLORIDE CRTAB 20 MEQ TABCR PO SCH (15:39)
[2022-06-27] MEDS: ACETAMINOPHEN 325 MG TAB PO PRN (15:39)
[2022-06-28] MEDS: HEPARIN SOD 5,000 UNIT/0.5 ML VIAL SQ SCH ×4 (04:32→22:24)
[2022-06-28] MEDS: amLODIPine BESYLATE 5 MG TAB PO SCH (08:05)
[2022-06-28] MEDS: FUROSEMIDE 40 MG TAB PO SCH (08:06)
[2022-06-28] MEDS: hydrALAZINE HCL 25 MG TAB PO SCH ×3 (08:06→21:38)
[2022-06-28] MEDS: POTASSIUM CHLORIDE CRTAB 20 MEQ TABCR PO SCH (08:07)
[2022-06-28 08:29] LABS: BUN Creatinine Ratio 20.7 (10-20); Calcium 9.1 mg/dl (8.5-10.1); Creatinine Clr Calc Pharmacy 25.2 ml/min; Est GFR (African American) 33.1 ml/min; Est GFR (Non-African American) 28.6 ml/min; Magnesium 2.3 mg/dl (1.7-2.4); Potassium 3.6 mmol/L (3.5-5.1)
[2022-06-28] MEDS: METOPROLOL SUCC 25MG EXT REL TAB PO SCH ×2 (08:57→21:39)
--- NOTE | 2022-06-28 14:25 | Hospitalist Progress Note ---
Date of Service June 28, 2022 Assessment & Plan (1) Weakness: Plan: Patient presenting from home with reports of generalized weakness. Recently admitted to [facility] 06/17 through 06/25 for hypertensive crisis due to medication noncompliance. Patient was found to have reduced EF 35 to 40%. Patient developed a posterior headache and underwent brain MRI that was suggestive of PRES. Also noted to have worsening renal function that was stable during admission, felt to be due to uncontrolled blood pressure. Patient offered evaluation for rehab or home health and patient declined both services but upon returning home realized he was too weak and returned to hospital. Now agreeable for rehab and requesting to go to [facility] as his brother currently resides there. PT/OT felipe ordered and recommended OPPT, patient does not have a car so home PT was offered to him. Again he declines home care servics Appreciate CM input (2) Acute electrocardiogram changes: Plan: No chest pain Trop trend unchanged (3) HTN (hypertension): Plan: During recent admission, patient started on furosemide 40 mg daily, hydralazine 75 mg TID, Toprol 25 mg BID, and amlodipine 5 mg daily--increased to 10mg daily with better BP control (4) CKD (chronic kidney disease) stage 4, GFR 15-29 ml/min: Plan: New baseline creatinine mid 2s Monitor renal function (5) Chronic combined systolic and diastolic CHF (congestive heart failure): Plan: Recent echo showed EF 35 to 40%, moderate global hypokinesis, grade 2 diastolic dysfunction, moderate tricuspid regurgitation Continue home dose furosemide Euvolemic on exam (6) Tricuspid regurgitation: Plan: Mild hypokalemia noted likely due to diuretic therapy, will replace and monitor electrolytes. Check Mg+. DVT PROPHYLAXIS SQ heparin Disposition- Will discharge home tomorrow. Patient does not qualify for SNF or rehab. He is again declining home care services. He was encouraged to ambulate and mobilize as much as possible while here (he ambulates in room with use of his cane). Admission and Anticipated Discharge Date Admission Date: June 26, 2022 Subjective no events overnight. evaluated by PT and OT today, note reviewed Patient does not want home health services, wants to return home if he cant go to [facility]. He is ambulating in his room using his cane Physical Exam Physical Exam: No acute distress, disheveled, appears older than stated age Respiratory: Breathing comfortably on room air, no wheezing/rhonchi Cardiovascular: regular rate and rhythm, no murmurs/rubs/gallops Gastrointestinal (Abdomen): soft, non tender Musculoskeletal: No edema Neurologic: awake, answers questions appropriately Psychiatric: calm Results & Data Results & Data ([facility]) Vital Signs (Past 12 Hours) Vital Signs Temp Pulse Pulse Resp BP Pulse Ox O2 Del Method 06/28/22 13:13 78 145/79 H 06/28/22 11:44 36.4 C L 62 20 136/80 97 Room Air 06/28/22 07:58 Room Air 06/28/22 07:49 36.5 C 61 20 166/94 H 97 Room Air 06/28/22 05:59 56 L 06/28/22 03:17 36.7 C 64 16 163/86 H 98 Room Air (3) HTN (hypertension) Hypertension type: unspecified Qualified Code(s): I10 - Essential (primary) hypertension
--- NOTE | 2022-06-28 14:46 | Electrocardiogram Report ---
Test Reason : Blood Pressure : / mmHG Vent. Rate : 058 BPM Atrial Rate : 058 BPM P-R Int : 092 ms QRS Dur : 134 ms QT Int : 458 ms P-R-T Axes : 076 079 237 degrees QTc Int : 449 ms Sinus bradycardia with short AL Left ventricular hypertrophy with QRS widening and repolarization abnormality Abnormal ECG When compared with ECG of 27-JUN-2022 05:51, No significant change Confirmed by Jn Murillo ([id number]) on 06/28/2022 2:45:57 PM Referred By: REFERRED SELF Confirmed By:Jn Murillo
[2022-06-29 07:56] LABS: Calcium 9.3 mg/dl (8.5-10.1); Creatinine Clr Calc Pharmacy 26.8 ml/min; Est GFR (African American) 35.2 ml/min; Est GFR (Non-African American) 30.4 ml/min; Magnesium 2.2 mg/dl (1.7-2.4); Potassium 3.5 mmol/L (3.5-5.1)
[2022-06-29] MEDS: METOPROLOL SUCC 25MG EXT REL TAB PO SCH (08:26)
[2022-06-29] MEDS: hydrALAZINE HCL 25 MG TAB PO SCH ×2 (08:27→14:00)
[2022-06-29] MEDS: FUROSEMIDE 40 MG TAB PO SCH (08:28)
[2022-06-29] MEDS: POTASSIUM CHLORIDE CRTAB 20 MEQ TABCR PO SCH (08:28)
[2022-06-29] MEDS: amLODIPine BESYLATE 5 MG TAB PO SCH (10:02)
--- NOTE | 2022-06-29 12:44 | Discharge Summary ---
Date of Service June 29, 2022 Admission HPI Per Admitting Provider 57-year-old male with PMH chronic diastolic and systolic CHF, tricuspid regurgitation, HTN, mood disorder, CKD stage IV, history of alcohol and tobacco abuse, medication noncompliance, and other problems listed below who presents to the ED for evaluation of generalized weakness. Patient recently admitted to [facility] 06/17 through 06/25 for hypertensive crisis due to medication noncompliance. Patient was found to have reduced EF 35 to 40%. Patient developed a posterior headache and underwent brain MRI that was suggestive of PRES. patient was also noted to have worsening renal function that was stable during admission, felt to be due to uncontrolled blood pressure. Patient was discharged on furosemide 40 mg daily, hydralazine 75 mg 3 times daily, Toprol 25 mg twice daily and amlodipine 5 mg daily. Patient was offered evaluation for rehab or home health. Patient declined both services the time of discharge. Patient reports he has felt generally weak since returning home. He reports that he has required a ca ne to walk. He feels as though he is unable to take care of himself. 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 He denies chest pain and shortness of breath. No lightheadedness, dizziness, diaphoresis, syncopal events. He reports a fair appetite however no abdominal pain, nausea, vomiting, diarrhea. No fevers or chills. Denies urinary symptoms. In the ED, labs are unremarkable. BP at the time my exam was 165/101. EKG shows deeper T wave inversions in the inferior leads. Troponin 22.5 (down from 82 on 06/18). Principal Diagnosis Deconditioning Hypertension Discharge Exam Constitutional Appears thin, disheveled, older than stated age, no acute distress Respiratory Breathing comfortably on room air, no wheezing/rhonchi/rales Cardiovascular Regular rate and rhythm, no murmurs/rubs Gastrointestinal (Abdomen) Soft, non tender Musculoskeletal No edema Neurologic awake, alert, spontaneously moving extremities Discharge Data Allergies Allergy/AdvReac Type Severity Reaction Status Date / Time No Known Allergies Allergy Unknown Verified 06/17/22 21:17 Consultations 06/26/22 17:31 ED Decision to Admit Stat Ordered Studies 06/26/22 16:47 CT head/brain wo con Stat Hospital Course (1) Weakness: (2) Acute electrocardiogram changes: (3) HTN (hypertension): (4) CKD (chronic kidney disease) stage 4, GFR 15-29 ml/min: (5) Chronic combined systolic and diastolic CHF (congestive heart failure): (6) Tricuspid regurgitation: Plan Mr Anil Sanz is a 57 year old man who was recently hospitalized here from 06/17 to 06/25 for hypertensive crisis from medication non compliance. During that hospitalization he had multiple medication adjustments and discharged when blood pressure was stable. He was evaluated by PT and was recommended he go to rehab however he declined and wanted to return home. He also declined HHPT. After returning home, he felt very tired and slept all day then awoke and was still very tired so he called EMS and was brought back to the hospital. On his second hospitalization, he was now agreeable to rehab and was again re-assessed by PT. Previously he was only able to ambulate 100ft in hallway but on evaluation this time is now able to ambulate 300 ft. He therefore does not qualify for rehab and this was explained to him. It was offered he can attend OP PT or home PT but again he declines these services. His blood pressure was above goal so amlodipine was increased further to 10mg daily. His recent antihypertensives were unchanged. He was also started on KCl 20mEq supplement due to low potassium level while on lasix. He will need repeat BMP in 1 week and follow up with PCP also in 1 -2 weeks. Total Time Total Time Spent Total Time Spent (In Minutes): 35 Discharge Plan Discharge Items Patient Disposition: Home - Self-Care Reason For Visit: WEAKNESS Discharge Diagnosis: Weakness Condition on Discharge: Good Activity: Resume your previous activity Non-emergency contact: Primary Care Provider and [employer] Call non-emergency contact if: you have any medication questions Follow-up/Referrals: Veronika Rai MD [Primary Care Provider] - (Date & Time 07/03/2022 11:00 AM Provider [facility] Please note that your previously scheduled appointment for 06/30 @ 3:20PM has been cancelled. ) Diet: Heart Healthy Addtl Attending Provider Instructions: Please continue your medications as prescribed Follow up with your family doctor in 1-2 weeks Your amlodipine was increased to 10mg daily for blood pressure. The rest of your medications are the same You were started on potassium supplement for low potassium levels. You need a repeat BMP in 1 week with your family doctor Pending Studies at Discharge: No Stand-Alone Forms: My [facility], Smoking Cessation Medications and DC Order Prescriptions: New amlodipine [Norvasc] 5 mg Tablet 10 mg PO QAM 30 Days Qty: 60 0RF potassium chloride 20 mEq Tablet,Er Particles/Crystals 20 meq PO QAM 14 Days Qty: 14 0RF Continued hydralazine 25 mg Tablet 75 mg PO TID Qty: 270 0RF metoprolol succinate [Toprol XL] 25 mg tablet extended release 24 hr 25 mg PO BID Qty: 60 0RF furosemide 40 mg Tablet 40 mg PO QAM Qty: 30 0RF Discontinued amlodipine 5 mg Tablet 5 mg PO QAM Qty: 30 0RF Discharge Orders: Discharge Order (Routine); Ordered 06/29/22 Ordered By: Js Cherry Admission Data Admit Date/Time: 06/26/22 17:37 Attending Provider: Js Cherry Admit Provider: Js Cherry Primary Care Provider: Veronika Rai Other Providers: Js Cherry Other Interventions: Discharge Summary Assessment (RN) Last Done: 06/29/22 11:54
[2022-06-29] MEDS: HEPARIN SOD 5,000 UNIT/0.5 ML VIAL SQ SCH (14:02)
== END 2022-06-29 14:30 | disposition home or self-care (01) ==
LOC: ED 14:19 → 2N 14:19

== ENCOUNTER 2023-04-16 14:56 | Inpatient (IN) ==
[2023-04-16 16:17] LABS: Basophils # (auto) 0.03 K/uL (0.00-0.20); Basophils % (auto) 0.3 %; Eosinophils # (auto) 0.17 K/uL (0.00-0.50); Eosinophils % (auto) 1.8 %; Hematocrit (blood only) 23.1 % (42.0-52.0); Hemoglobin 7.9 g/dl (14.0-18.0); Immature Granulocytes # (auto) 0.05 K/uL (0.01-0.20); Immature Granulocytes % (auto) 0.5 %; Lymphocytes # (auto) 0.66 K/uL (1.20-3.40); Lymphocytes % (auto) 6.9 %; Mean Corpuscular Hgb Conc 34.2 g/dL (32.0-36.0); Mean Corpuscular Volume 87.8 fL (80.0-100.0); Mean Platelet Volume 9.5 fL (9.4-12.4); Monocytes # (auto) 0.65 K/uL (0.11-0.59); Monocytes % (auto) 6.8 %; Neutrophils # (auto) 7.94 K/uL (1.40-6.50); Neutrophils % (auto) 83.7 %; Platelet Count 270 K/uL (130-400); RDW Coefficient of Variation 13.3 % (11.5-14.5); RDW Standard Deviation 42.1 fL (36.4-46.3); Red Blood Count 2.63 M/uL (4.70-6.10)
[2023-04-16 16:32] LABS: Polychromasia 1+
[2023-04-16 16:42] LABS: Albumin Globulin Ratio 1.2 (0.9-2); Albumin Level 3.6 gm/dl (3.4-5.0); BUN Creatinine Ratio 7.4 (10-20); Bilirubin,Total 0.5 mg/dl (0.2-1.0); Calcium 8.2 mg/dl (8.6-10.3); Creatinine Clr Calc Pharmacy 6.2 ml/min; Est GFR (African American) 5.1 ml/min; Est GFR (Non-African American) 4.4 ml/min; Globulin 2.9 gm/dl (2.5-4.0); Potassium 3.9 mmol/L (3.5-5.1); Total Protein 6.5 gm/dl (6.0-8.3)
[2023-04-16] MEDS ORDERED: SODIUM CHLORIDE 0.9% 1,000 ML IV ONE (17:23)
[2023-04-16 17:43] LABS: Appearance Urine Cloudy (Clear); Bacteria Urine Automated Negative (Negative); Bilirubin Urine Negative (Negative); Blood Urine Trace (Negative); Color Urine Yellow; Epithelial Cell Urine Auto >30 /lpf (0-5); Glucose Urine UA Trace (Negative); Ketones Urine Negative (Negative); Leukocyte Esterase Urine Negative (Negative); Nitrite Urine Negative (Negative); Protein Urine 3+ (Negative); Specific Gravity Urine 1.015 (1.000-1.030); Urobilinogen Urine Negative (Negative); pH Urine 5.5 (4.5-7.5)
--- NOTE | 2023-04-16 17:53 | XRay Report ---
XR chest 1V not portable CLINICAL HISTORY: sob TECHNIQUE: Single frontal radiograph of the chest was obtained. Comparison: Comparison is made to chest radiograph 06/26/2022 FINDINGS: No lines and tubes are seen. Cardiomegaly is noted. Bilateral lower lung predominant airspace opaciti es are seen. Small bilateral pleural effusions are seen. IMPRESSION: Bilateral lower lung predominant airspace opacities which may represent atelectasis, pneumonia, and/o r aspiration. Small bilateral pleural effusions are seen. ACT 112: Negative or not required by law. Electronically signed by: Arturo Menezes M.D. 04/16/2023 5:51 PM
[2023-04-16 18:04] LABS: Troponin I High Sensitivity 30.5 pg/ml (0-20)
--- NOTE | 2023-04-16 18:26 | CT Scan Report ---
CT chest diagnostic wo con CLINICAL HISTORY: SOB TECHNIQUE: Multidetector row helical CT of the chest was performed. Coronal and sagittal reformations were obtained. Automated dose lowering techniques and/or adjustment according to patient size were u tilized for this exam. CT DOSE: 775.57 mGy.cm Comparison: Comparison is made to CT chest abdomen pelvis 01/10/2018 FINDINGS: Lungs and pleura: There are moderate bilateral pleural effusions with associated atelectasis. Consoli dative and groundglass opacities are seen most prominently in the right upper lobe. Heart and pericardium: Cardiomegaly is seen with biatrial enlargement. Physiologic pericardial fluid is seen. Hyperdense blood is seen compatible with anemia. Vessels: Mild atherosclerotic changes in the aorta and coronary arteries. Mediastinum and amber: Mediastinal lymph nodes measure 12 mm. Chest wall and lower neck: Unremarkable. Abdomen: For findings below the diaphragm, please refer to CT of the abdomen dated the same. Bones: Minimal degenerative changes are seen. IMPRESSION: Moderate bilateral pleural effusions are seen. Consolidative and groundglass opacities with lymphaden opathy are favored to represent pneumonia. ACT 112: Negative or not required by law. Electronically signed by: Arturo Menezes M.D. 04/16/2023 6:24 PM
--- NOTE | 2023-04-16 18:31 | CT Scan Report ---
CT abd pelvis wo con CLINICAL HISTORY: kidney failure, abd pain TECHNIQUE: Helical axial images of the abdomen and pelvis were obtained. Automated dose lowering tech niques and/or adjustment according to patient size were utilized for this exam. This exam was perfor med without intravenous contrast. COMPARISON: None available at the time of this dictation. FINDINGS: Lower chest: No acute abnormality. Liver: Unremarkable. No focal lesions are seen. Gallbladder and biliary tree: No calcified gallstones. Normal caliber wall. No intra- or extrahepatic biliary ductal dilation. Pancreas: Unremarkable, no focal lesions. Spleen: Unremarkable. Adrenals: Unremarkable. Kidneys and ureters: A left renal cyst measures 13 mm. Bladder: Limited evaluation due to underdistention. Reproductive organs: Unremarkable. Bowel: The appendix is normal. Lymph nodes Retroperitoneal: Unremarkable. Pelvic: Unremarkable. Mesenteric: Subcentimeter lymph nodes are noted. Peritoneum: Normal. Vessels: Unremarkable. Abdominal wall: Unremarkable. Bones: Degenerative changes in the visualized spine. IMPRESSION: No acute abnormalities are seen to explain abdominal pain. ACT 112: Negative or not required by law. Electronically signed by: Arturo Menezes M.D. 04/16/2023 6:29 PM
[2023-04-16] MEDS ORDERED: DOXYCYCLINE HYCLATE 100 MG in DEXTROSE 5% MINI-B 100 ML IV STA (18:34)
[2023-04-16 18:43] LABS: Adenovirus PCR Not Detected (NotDetected); Bordetella parapertussis PCR Not Detected (NotDetected); Bordetella pertussis PCR Not Detected (NotDetected); Chlamydia pneumoniae PCR Not Detected (NotDetected); Coronavirus 229E PCR Not Detected (NotDetected); Coronavirus CoV-2 (COVID19)PCR Not Detected (NotDetected); Coronavirus HKU1 PCR Not Detected (NotDetected); Coronavirus NL63 PCR Not Detected (NotDetected); Coronavirus OC43PCR Not Detected (NotDetected); Human Metapneumovirus PCR Not Detected (NotDetected); Influenza A PCR Not Detected (NotDetected); Influenza B PCR Not Detected (NotDetected); Mycoplasma pneumoniae PCR Not Detected (NotDetected); Parainfluenza Virus 1 PCR Not Detected (NotDetected); Parainfluenza Virus 2 PCR Not Detected (NotDetected); Parainfluenza Virus 3 PCR Not Detected (NotDetected); Parainfluenza Virus 4 PCR Not Detected (NotDetected); Respiratory Syncytial VirusPCR Not Detected (NotDetected); Rhinovirus/Enterovirus PCR Not Detected (NotDetected)
[2023-04-16] MEDS ORDERED: cefTRIAXone SODIUM 1,000 MG in DEXTROSE 5 % MINI-B 50 ML IV SCH (18:45)
[2023-04-16 19:02] LABS: Troponin I High Sensitivity 31.2 pg/ml (0-20)
--- NOTE | 2023-04-16 19:15 | Emergency Department Note ---
Impression & Plan Acute renal failure, Pneumonia, Pleural effusion ED Provider Note NAME: ANGELINA MOON AGE: 58 SEX: M : 1965 ARRIVES VIA: Walk-In INFORMANT: Patient, ED PROVIDER(S): Monique Mccrary MD CHIEF COMPLAINT: Shortness of breath, weakness, congestion HPI: Is a 58-year-old male history of previous CHF, alcohol use disorder, CKD presenting for shortness of breath, congestion and weakness. Patient dates for past 1 week he has felt like he had a flulike illness. He has had new cough, weakness. No fevers reported at home. He reports stopping about 1 month ago. Otherwise he saw his primary care doctor for the symptoms and was sent here for x-ray revealed pleural effusions versus pneumonia. Otherwise patient notes new leg swelling. He still makes urine. No chest pain. ROS: See above HPI for pertinent positives & negatives. A total of 10 systems reviewed and were otherwise negative. PAST MEDICAL HISTORY: See Below PAST SURGICAL HISTORY: See Below FAMILY HISTORY: See Below SOCIAL HISTORY: See Below HOME MEDICATIONS: See Below ALLERGIES: See Below VITALS: See Below PHYSICAL EXAMINATION: General: resting comfortably in no acute distress Head: Normocephalic and atraumatic Eyes: Normal inspection, extraocular muscles intact Ear, nose, throat: Normal external exam Neck: Normal range of motion Respiratory: Rhonchi in all lung dodge Cardiovascular: Regular rate/rhythm, no murmur GI: soft, nontender, no guarding or rebound Extremities: nontender, moves all extremities, 2+ pitting edema bilateral lower extremities Neuro: The patient awake and alert, appropriately conversive, no focal deficits, symmetric faces Skin: Warm, dry, and intact MEDICAL DECISION MAKING: This is a 58-year-old male history of CHF, alcohol use disorder, CKD presenting for shortness of breath cough and congestion. Patient sent in for pleural effusion versus pneumonia on chest x-ray. At this time patient's lab work, done at triage, reveals no abnormalities including a new creatinine level of over 11. Previous baseline around 2. Patient is making urine. Consider obstructive/fluid overload. Will order CT imaging to help rule out further etiology of patient's pneumonia versus pleural effusion and abdominal pain. Cannot use contrast due to patient's creatinine elevation. -Otherwise we will do viral panel to assess for viral etiology. -hemoglobin significant low at 7.9, previous baseline over 13. -Current acid 16, anion gap 17, BUN elevated at 83. Troponin elevated. -CT imaging of the abdomen/pelvis reveals no acute process -CT imaging of the chest reveals pleural effusions, moderate as well as concerning pneumonia -Will give ceftriaxone and Doxy -Discussed with on-call nephrology who states patient can stay here as he is still making urine. Otherwise nephrology recommend 100 mg of Lasix twice daily. Will follow along in consultation. -Potassium is not elevated here, 3.9 Differential diagnosis: Pneumonia, viral syndrome, CHF, renal failure, PE, GI bleed ER treatment provided: See below Diagnostics interpreted by me: ECG: None Cardiac Monitoring: An order was placed for continuous cardiac monitoring. The monitor shows a rate of 91 with sinus rhythm rhythm. Laboratory studies: As stated above and show below. Imaging studies: See below. Critical Care Note: I have personally spent 30 of critical care time in the direct management of this patient. This includes bedside care, interpretation of diagnostic studies, and testing, discussion with consultants, patient, and family members, and other required patient management activities. This 30 minutes is in excess of all separately billable procedures. Past Med/Surg History Medical History (Updated 04/16/23 @ 19:15 by Monique Mccrary MD) Tricuspid regurgitation Chronic combined systolic and diastolic CHF (congestive heart failure) CKD (chronic kidney disease) stage 4, GFR 15-29 ml/min PRES (posterior reversible encephalopathy syndrome) Dyslipidemia Suicide attempt Depression Alcohol abuse HTN (hypertension) Surgical History No significant past surgical history Family History Mother Hypertension Social History Smoking Status: Never smoker Second Hand Exposure: No; Do You Dip or Chew Tobacco: Yes; Hx Alcohol Use: No Hx Substance Use: No Preferred Language: Pashto Communication Ability: Effective Car Worker Required: No Beliefs That Will Affect Care: None marital status: Single Current Living Situation: Alone Current Living Situation Comment: Lives alone while brother is at [facility] How many Children do You have: 0 Feels Safe at Home: Yes Assistive Devices: Cane Allergies Allergies Allergy/AdvReac Type Severity Reaction Status Date / Time No Known Allergies Allergy Unknown Verified 06/17/22 21:17 Home Meds Previous Rx's Medication Instructions Recorded furosemide 40 mg tablet 40 mg PO QAM #30 tabs 06/25/22 hydralazine 25 mg tablet 75 mg (3 x 25 mg) PO TID #270 tabs 06/25/22 metoprolol succinate 25 mg 25 mg PO BID #60 tabs 06/25/22 tablet,extended release 24 hr (Toprol XL) Results & Data (ED) Vital Signs Vital Signs - 24 hr 04/16/23 15:12 04/16/23 16:44 04/16/23 16:55 Temperature 36.7 C Temperature Source Temporal Artery Scan Pulse Rate 92 H 102 H Pulse Rate [Apical] 98 H Pulse Rhythm [Apical] Regular Pulse Strength [Apical] Normal Respiratory Rate 20 28 H Respiratory Effort / Characteristics Non-Labored SOB on Exertion Respiratory Depth Normal Shallow Blood Pressure 169/95 H Blood Pressure [Left Arm] 175/105 H Blood Pressure Mean 119 Blood Pressure Mean [Left Arm] 128 Pulse Oximetry 94 92 Oxygen Delivery Method Room Air Room Air Sepsis Recent Fever Within 48 Hours No Sepsis New/Unexplained Change in Mental Status No Sepsis Action Taken by Nursing No Action Required 04/16/23 18:24 Temperature Temperature Source Pulse Rate Pulse Rate [Apical] 91 H Pulse Rhythm [Apical] Regular Pulse Strength [Apical] Normal Respiratory Rate 19 Respiratory Effort / Characteristics SOB on Exertion Respiratory Depth Blood Pressure Blood Pressure [Left Arm] 168/106 H Blood Pressure Mean Blood Pressure Mean [Left Arm] 126 Pulse Oximetry 92 Oxygen Delivery Method Room Air Sepsis Recent Fever Within 48 Hours Sepsis New/Unexplained Change in Mental Status Sepsis Action Taken by Nursing Laboratory Data 04/16/23 15:48 04/16/23 15:48 Lab Results 04/16/23 04/16/23 04/16/23 Range/Units 15:48 18:05 Unknown WBC 9.50 (4.8-10.8) K/ul RBC 2.63 L (4.70-6.10) M/uL Hgb 7.9 L (14.0-18.0) g/dl Hct 23.1 L (42.0-52.0) % MCV 87.8 (80.0-100.0) fL MCH 30.0 (25.0-34.0) pg MCHC 34.2 (32.0-36.0) g/dL RDW Std Deviation 42.1 (36.4-46.3) fL RDW Coeff of Juliette 13.3 (11.5-14.5) % Plt Count 270 (130-400) K/uL MPV 9.5 (9.4-12.4) fL Immature Gran % (Auto) 0.5 % Neut % (Auto) 83.7 % Lymph % (Auto) 6.9 % [place] % (Auto) 6.8 % Eos % (Auto) 1.8 % Baso % (Auto) 0.3 % Neut # (Auto) 7.94 H (1.40-6.50) K/uL Lymph # (Auto) 0.66 L (1.20-3.40) K/uL [place] # (Auto) 0.65 H (0.11-0.59) K/uL Eos # (Auto) 0.17 (0.00-0.50) K/uL Baso # (Auto) 0.03 (0.00-0.20) K/uL Immature Gran # (Auto) 0.05 (0.01-0.20) K/uL Polychromasia 1+ Sodium 136 (136-145) mmol/L Potassium 3.9 (3.5-5.1) mmol/L Chloride 103 (98-107) mmol/L Carbon Dioxide 16 L (21-32) mmol/L Anion Gap 17 H (3-11) BUN 83 H (6-23) mg/dl Creatinine 11.23 H* (0.6-1.4) mg/dl Est Cr Clr Drug Dosing 6.2 ml/min Est GFR ( Amer) 5.1 ml/min Est GFR (Non-Af Amer) 4.4 ml/min BUN/Creatinine Ratio 7.4 L (10-20) Glucose 152 H (70-99(Fasting)) mg/dl Calcium 8.2 L (8.6-10.3) mg/dl Total Bilirubin 0.5 (0.2-1.0) mg/dl AST 15 (13-39) U/L ALT 9 (7-52) U/L Alkaline Phosphatase 102 (34-104) U/L Troponin I High Sens 30.5 H 31.2 H (0-20) pg/ml Total Protein 6.5 (6.0-8.3) gm/dl Albumin 3.6 (3.4-5.0) gm/dl Globulin 2.9 (2.5-4.0) gm/dl Albumin/Globulin Ratio 1.2 (0.9-2) Urine Color Yellow Urine Appearance Cloudy A (Clear) Urine pH 5.5 (4.5-7.5) Ur Specific [place] 1.015 (1.000-1.030) Urine Protein 3+ H (Negative) Urine Glucose (UA) Trace H (Negative) Urine Ketones Negative (Negative) Urine Blood Trace H (Negative) Urine Nitrite Negative (Negative) Urine Bilirubin Negative (Negative) Urine Urobilinogen Negative (Negative) Ur Leukocyte Esterase Negative (Negative) Urine WBC (Auto) 1-5 (0-5) /hpf Urine RBC (Auto) 5-10 H (0-4) /hpf U Hyaline Cast (Auto) 1-5 (0-5) /lpf U Epithel Cells (Auto) >30 H (0-5) /lpf Urine Bacteria (Auto) Negative (Negative) Adenovirus (PCR) Not Detected (NotDetected) B. pertussis DNA (PCR) Not Detected (NotDetected) B.parapertussis DNA PCR Not Detected (NotDetected) C. pneumoniae DNA (PCR) Not Detected (NotDetected) Coronavirus OC43 (PCR) Not Detected (NotDetected) Coronavirus HKU1 (PCR) Not Detected (NotDetected) Coronavirus 229E (PCR) Not Detected (NotDetected) SARS-CoV-2 (PCR) Not Detected (NotDetected) Coronavirus NL63 (PCR) Not Detected (NotDetected) Human Metapneumovir PCR Not Detected (NotDetected) Influenza Type A (PCR) Not Detected (NotDetected) Influenza Type B (PCR) Not Detected (NotDetected) M. pneumoniae (PCR) Not Detected (NotDetected) Parainfluenza 1 (PCR) Not Detected (NotDetected) Parainfluenza 2 (PCR) Not Detected (NotDetected) Parainfluenza 3 (PCR) Not Detected (NotDetected) Parainfluenza 4 (PCR) Not Detected (NotDetected) RSV (PCR) Not Detected (NotDetected) Entero/Rhino (PCR) Not Detected (NotDetected) Administered Medications Discontinued Medications Sodium Chloride (Nss) 1,000 mls @ 999 mls/hr IV .[id number] ONE Stop: 04/16/23 18:23 Last Admin: 04/16/23 17:48 Dose: Not Given Documented By: [facility] Imaging Data Radiologist's Impression: Chest X-Ray 04/16/23 15:15 XR chest 1V not portable CLINICAL HISTORY: sob TECHNIQUE: Single frontal radiograph of the chest was obtained. Comparison: Comparison is made to chest radiograph 06/26/2022 FINDINGS: No lines and tubes are seen. Cardiomegaly is noted. Bilateral lower lung predominant airspace opacities are seen. Small bilateral pleural effusions are seen. IMPRESSION: Bilateral lower lung predominant airspace opacities which may represent atelectasis, pneumonia, and/or aspiration. Small bilateral pleural effusions are seen. ACT 112: Negative or not required by law. Electronically signed by: Arturo Menezes M.D. 04/16/2023 5:51 PM Abdomen/Pelvis CT 04/16/23 17:23 CT abd pelvis wo con CLINICAL HISTORY: kidney failure, abd pain TECHNIQUE: Helical axial images of the abdomen and pelvis were obtained. Automated dose lowering techniques and/or adjustment according to patient size were utilized for this exam. This exam was performed without intravenous contrast. COMPARISON: None available at the time of this dictation. FINDINGS: Lower chest: No acute abnormality. Liver: Unremarkable. No focal lesions are seen. Gallbladder and biliary tree: No calcified gallstones. Normal caliber wall. No intra- or extrahepatic biliary ductal dilation. Pancreas: Unremarkable, no focal lesions. Spleen: Unremarkable. Adrenals: Unremarkable. Kidneys and ureters: A left renal cyst measures 13 mm. Bladder: Limited evaluation due to underdistention. Reproductive organs: Unremarkable. Bowel: The appendix is normal. Lymph nodes Retroperitoneal: Unremarkable. Pelvic: Unremarkable. Mesenteric: Subcentimeter lymph nodes are noted. Peritoneum: Normal. Vessels: Unremarkable. Abdominal wall: Unremarkable. Bones: Degenerative changes in the visualized spine. IMPRESSION: No acute abnormalities are seen to explain abdominal pain. ACT 112: Negative or not required by law. Electronically signed by: Arturo Menezes M.D. 04/16/2023 6:[address] 04/16/23 17:23 CT chest diagnostic wo con CLINICAL HISTORY: SOB TECHNIQUE: Multidetector row helical CT of the chest was performed. Coronal and sagittal reformations were obtained. Automated dose lowering techniques and/or adjustment according to patient size were utilized for this exam. CT DOSE: 775.57 mGy.cm Comparison: Comparison is made to CT chest abdomen pelvis 01/10/2018 FINDINGS: Lungs and pleura: There are moderate bilateral pleural effusions with associated atelectasis. Consolidative and groundglass opacities are seen most prominently in the right upper lobe. Heart and pericardium: Cardiomegaly is seen with biatrial enlargement. Physiologic pericardial fluid is seen. Hyperdense blood is seen compatible with anemia. Vessels: Mild atherosclerotic changes in the aorta and coronary arteries. Mediastinum and amber: Mediastinal lymph nodes measure 12 mm. Chest wall and lower neck: Unremarkable. Abdomen: For findings below the diaphragm, please refer to CT of the abdomen dated the same. Bones: Minimal degenerative changes are seen. IMPRESSION: Moderate bilateral pleural effusions are seen. Consolidative and groundglass opacities with lymphadenopathy are favored to represent pneumonia. ACT 112: Negative or not required by law. Electronically signed by: Arturo Menezes M.D. 04/16/2023 6:24 PM Discharge Plan Visit Data Chief Complaint: Referred by Doctor Stated Complaint: REF BY FOR LUNG ED Provider: Monique Mccrary Discharge Problem: Acute renal failure, Pneumonia, Pleural effusion Forms Stand Alone Forms: My [facility] [employer] Prescriptions Prescriptions: No Action hydralazine 25 mg Tablet 75 mg PO TID Qty: 270 0RF metoprolol succinate [Toprol XL] 25 mg tablet extended release 24 hr 25 mg PO BID Qty: 60 0RF furosemide 40 mg Tablet 40 mg PO QAM Qty: 30 0RF Referrals Referrals: Veronika Rai MD [Primary Care Provider] -
--- NOTE | 2023-04-16 19:42 | History & Physical Report ---
Date of Service April 16, 2023 Assessment & Plan (1) Acute on chronic combined systolic (congestive) and diastolic (congestive) heart failure: Plan: Patient is 58 y/o M with PMH nonischemic cardiomyopathy, chronic combined CHF, CKD IV, HTN, depression, ETOH use presented to ER for progressive shortness of breath, extremity edema in setting of medication noncompliance, and abnormal outpatient labs and chest x-ray In ER patient afebrile, P: 92, R: 20, BP: 169/95, 94% on room air. No leukocytosis UA without significant signs of infection. Negative respiratory panel CXR: Bilateral lower lung predominant airspace opacities which may represent atelectasis, pneumonia, and/or aspiration. Small bilateral pleural effusions are seen. CT chest w/o contrast: Moderate bilateral pleural effusions are seen. Consolidative and groundglass opacities with lymphadenopathy are favored to represent pneumonia. In ER given 1L NSS, Rocephin, doxycycline Troponin: 30.5-->31.2 During ER course patient becomes increasingly anxious, tachypneic and SOB. Noted to have sinus tachycardia on monitor rate 112, BP 165/111, 89% on room air up to 93% on 3 L nasal cannula. Lasix 100 mg IV stat ordered as well as Nitropaste BiPAP attempted however patient was unable to tolerate. Patient was given dose of Ativan and BiPAP attempted again however patient refused as was feeling less SOB. HR improved to 90's and sats 93% on 3L EKG ordered BNP ordered Continue supplemental O2 Lasix 100 mg IV twice daily Continue Nitropaste Echo Cardiology consult Hold on antibiotics at this time as low suspicion for pneumonia, suspect this is CHF CBC, BMP in a.m. (2) Acute renal failure: Plan: Acute renal failure on CKD IV BUN:83, Cr:11 CT abdomen pelvis: No acute abnormalities are seen to explain abdominal pain per radiology read Patient with urine output in ER Monitor I's and O's Possible cardiorenal syndrome ER physician consulted on-call [facility] [employer] who recommended Lasix 100 mg twice daily Nephrology consult BMP in a.m. (3) Anemia: Plan: H/H: 7.9/23. Hgb was13 on 08/06/2022 Denies melena, hematochezia Hemoccult stool Anemia labs pending, monitor H&H. Currently patient mildly volume overloaded we will hold on PRBC transfusion at this time (4) HTN (hypertension): Plan: Hypertensive in ER. Started Lasix, Nitropaste as above Resume home hydralazine, metoprolol Hold amlodipine (5) Depression: Plan: Prior history of depression Not currently on medications DVT Prophylaxis SCDs Full Code as per discussion with pt Follows with Dr Rai for routine care Pt was seen and care coordinated with Dr Gutiérrez. See addendum History of Present Illness Chief Complaint: Abnormal outpatient testing Primary Care Provider: Veronika Rai MD Patient is 58 y/o M with PMH nonischemic cardiomyopathy, chronic combined CHF, CKD IV, HTN, depression, ETOH use presented to ER for abnormal outpatient labs and abnormal outpatient CXR. History obtained from patient and outpatient chart review. Patient seen at PCP office today for not feeling well with SOB, cough and increased BLE feet edema in which he had outpatient labs and found to have Cr: 11.4, H/H:8.7/24.8, and CXR with small bilateral effusions, patchy opacities. Patient was referred to ER. He states has had progressive SOB and increasing BLE edema. SOB worse with lying supine. States overall just not felt well and hasn't been able to do much secondary to exertional SOB. States has had nonproductive cough. Has not noted any fever or chills. Reported stopped drinking ETOH approximately one month ago. Admits to not taking medications regularly. Denies CP, diaphoresis, N/V/D/C, ATWOOD, dizziness, syncope, vision changes, neck pain, palpitations, hemoptysis, sore throat, choking, rhinorrhea, abdominal pain, extremity edema, rashes, urinary symptoms. Outpatient chart review echo 05/2022 EF: 35-40%, improved with medical therapies with EF 55% on echo in 08/2022. Seen in cardiology clinic 11/2022. Lasix decreased from 40mg BID to 40mg daily with ability to take extra if needed, and potassium was increased to 40meq bid Allergies Allergy/AdvReac Type Severity Reaction Status Date / Time No Known Allergies Allergy Unknown Verified 04/16/23 19:50 Home Medications Medication Instructions Recorded Confirmed Type amlodipine 10 mg tablet 10 mg PO QAM 04/16/23 04/16/23 History cyanocobalamin (vitamin B-12) 100 100 mcg PO QAM 04/16/23 04/16/23 History mcg tablet furosemide 40 mg tablet 40 mg PO BID 04/16/23 04/16/23 History hydralazine 25 mg tablet 25 mg PO TID 04/16/23 04/16/23 History metoprolol succinate 25 mg 25 mg PO AMHS 04/16/23 04/16/23 History tablet,extended release 24 hr potassium chloride 20 mEq 40 meq PO AMHS 04/16/23 04/16/23 History tablet,extended release(part/cryst) (Klor-Con M) Past Med/Surg History Medical History Tricuspid regurgitation Chronic combined systolic and diastolic CHF (congestive heart failure) CKD (chronic kidney disease) stage 4, GFR 15-29 ml/min PRES (posterior reversible encephalopathy syndrome) Dyslipidemia Suicide attempt Depression Alcohol abuse HTN (hypertension) Surgical History No significant past surgical history Family History Mother Hypertension Social History Smoking Status: Never smoker Second Hand Exposure: No; Do You Dip or Chew Tobacco: Yes; Hx Alcohol Use: No Hx Substance Use: No Preferred Language: German Communication Ability: 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 Gutiérrez Results & Data Results & Data Vital Signs (Past 12 Hours) Vital Signs Temp Pulse Pulse Resp BP BP Pulse Ox 04/16/23 18:24 91 H 19 168/106 H 92 04/16/23 16:55 98 H 28 H 175/105 H 92 04/16/23 16:44 102 H 04/16/23 15:12 36.7 C 92 H 20 169/95 H 94 O2 Del Method 04/16/23 18:24 Room Air 04/16/23 16:55 Room Air 04/16/23 16:44 04/16/23 15:12 Room Air Laboratory Results Short CBC 04/16/23 Range/Units 15:48 WBC 9.50 (4.8-10.8) K/ul Hgb 7.9 L (14.0-18.0) g/dl Hct 23.1 L (42.0-52.0) % Plt Count 270 (130-400) K/uL BMP 04/16/23 15:48 Sodium 136 Potassium 3.9 Chloride 103 Carbon Dioxide 16 L BUN 83 H Creatinine 11.23 H* Glucose 152 H Calcium 8.2 L Liver Function 04/16/23 Range/Units 15:48 Total Bilirubin 0.5 (0.2-1.0) mg/dl AST 15 (13-39) U/L ALT 9 (7-52) U/L Alkaline Phosphatase 102 (34-104) U/L Albumin 3.6 (3.4-5.0) gm/dl Urine 04/16/23 Range/Units Unknown Urine Color Yellow Urine Appearance Cloudy A (Clear) Urine pH 5.5 (4.5-7.5) Ur Specific [place] 1.015 (1.000-1.030) Urine Protein 3+ H (Negative) Urine Glucose (UA) Trace H (Negative) Diagnostic Findings Chest X-Ray 04/16/23 15:15 XR chest 1V not portable CLINICAL HISTORY: sob TECHNIQUE: Single frontal radiograph of the chest was obtained. Comparison: Comparison is made to chest radiograph 06/26/2022 FINDINGS: No lines and tubes are seen. Cardiomegaly is noted. Bilateral lower lung predominant airspace opacities are seen. Small bilateral pleural effusions are seen. IMPRESSION: Bilateral lower lung predominant airspace opacities which may represent atelectasis, pneumonia, and/or aspiration. Small bilateral pleural effusions are seen. ACT 112: Negative or not required by law. Electronically signed by: Arturo Menezes M.D. 04/16/2023 5:51 PM Abdomen/Pelvis CT 04/16/23 17:23 CT abd pelvis wo con CLINICAL HISTORY: kidney failure, abd pain TECHNIQUE: Helical axial images of the abdomen and pelvis were obtained. Automated dose lowering techniques and/or adjustment according to patient size were utilized for this exam. This exam was performed without intravenous contrast. COMPARISON: None available at the time of this dictation. FINDINGS: Lower chest: No acute abnormality. Liver: Unremarkable. No focal lesions are seen. Gallbladder and biliary tree: No calcified gallstones. Normal caliber wall. No intra- or extrahepatic biliary ductal dilation. Pancreas: Unremarkable, no focal lesions. Spleen: Unremarkable. Adrenals: Unremarkable. Kidneys and ureters: A left renal cyst measures 13 mm. Bladder: Limited evaluation due to underdistention. Reproductive organs: Unremarkable. Bowel: The appendix is normal. Lymph nodes Retroperitoneal: Unremarkable. Pelvic: Unremarkable. Mesenteric: Subcentimeter lymph nodes are noted. Peritoneum: Normal. Vessels: Unremarkable. Abdominal wall: Unremarkable. Bones: Degenerative changes in the visualized spine. IMPRESSION: No acute abnormalities are seen to explain abdominal pain. ACT 112: Negative or not required by law. Electronically signed by: Arturo Menezes M.D. 04/16/2023 6:[address] 04/16/23 17:23 CT chest diagnostic wo con CLINICAL HISTORY: SOB TECHNIQUE: Multidetector row helical CT of the chest was performed. Coronal and sagittal reformations were obtained. Automated dose lowering techniques and/or adjustment according to patient size were utilized for this exam. CT DOSE: 775.57 mGy.cm Comparison: Comparison is made to CT chest abdomen pelvis 01/10/2018 FINDINGS: Lungs and pleura: There are moderate bilateral pleural effusions with associated atelectasis. Consolidative and groundglass opacities are seen most prominently in the right upper lobe. Heart and pericardium: Cardiomegaly is seen with biatrial enlargement. Physiologic pericardial fluid is seen. Hyperdense blood is seen compatible with anemia. Vessels: Mild atherosclerotic changes in the aorta and coronary arteries. Mediastinum and amber: Mediastinal lymph nodes measure 12 mm. Chest wall and lower neck: Unremarkable. Abdomen: For findings below the diaphragm, please refer to CT of the abdomen dated the same. Bones: Minimal degenerative changes are seen. IMPRESSION: Moderate bilateral pleural effusions are seen. Consolidative and groundglass opacities with lymphadenopathy are favored to represent pneumonia. ACT 112: Negative or not required by law. Electronically signed by: Arturo Menezes M.D. 04/16/2023 6:24 PM Supervising Physician Co-Signing Physician Notes I have seen and discussed the case with the collaborating LEONEL. I agree with the above H&P. I have reviewed and confirmed the patients medical history, the findings on physical examination, and the patients diagnosis and treatment plan with Camacho CASTANEDA and agree with the information documented. In short, Mr. Sanz is a 58 y/o M with PMH nonischemic cardiomyopathy, chronic combined CHF, CKD IIIb, HTN, depression, ETOH use who is being admitted for acute on chronic biventricular heart failure and acute kidney failure on CKDV. Patient endorses non-compliance, stating he doesn't take his meds as prescribed in order to "make them last longer." Patient reports bilateral lower extremity edema, as well as increasing SOB, cough without production of sputum. Endorses orthopnea. Exam revealed anxious gentleman with conversational dyspnea. HEENT: JVD+ to mandible RESP: +diffuse bilateral crackles CV: tachycardic, +LIVIER MSK Bilateral pitting edema 2+ to knees Plan #Acute on chronic HFrEF ([id number]% 05/2022) - Suspected exacerbation 2/2 noncompliance - Home diuretics: Lasix 40 BID, does no recall last dose - GDMT: *BetaB: Resume Metoprolol XL 25mg BID *RAAS: avoid 2/2 renal dysfunction *Rebel: avoid 2/2 renal dysfunction *SGLT: avoid 2/2 renal dysfunction Vasodilator: Resume hydralazine 25mg TID - s/p 100mg lasix in ED after discussion with nephro - Will start aggressive diuresis with 100mg BID IV lasix - Strict I/Os, daily weights, caceres - Repeat echo, Cardiology consult -Discontinue amlodipine iso HFrEF #TISHA on CKD V -likely CRS given medication noncompliance -Nephrology aware-100IV lasix BID, no acute needs for dialysis at this time -Strict I/Os Rest of plan as above (4) HTN (hypertension) Hypertension type: unspecified Qualified Code(s): I10 - Essential (primary) hypertension
[2023-04-16] MEDS ORDERED: FUROSEMIDE 40 MG/4 ML VIAL IV ONE ×2 (19:52→19:55)
[2023-04-16] MEDS: NITROGLYCERIN 2% OINTMENT 30GM TUBE EXT SCH (20:03)
[2023-04-16] MEDS ORDERED: LORazepam 0.5 MG TAB SL STA (20:09)
[2023-04-16 20:28] LABS: Magnesium 2.1 mg/dl (1.7-2.4)
[2023-04-16 20:44] LABS: Thyroid Stimulating Hormone 1.36 uIu/ml (0.300-4.500)
[2023-04-16 21:44] LABS: Vitamin B12 790 pg/ml (180-914)
[2023-04-16] MEDS ORDERED: ACETAMINOPHEN 325 MG TAB PO PRN (21:56)
[2023-04-16] MEDS ORDERED: ONDANSETRON INJ 2 MG/ML 2 ML VIAL IV PRN (21:56)
[2023-04-16] MEDS ORDERED: POLYETHYLENE (MIRALAX) 17 GM PACK PO PRN (21:56)
[2023-04-16 22:50] LABS: Folate (Folic Acid),Ser orPlas > 22.30 ng/ml (>5.38)
[2023-04-16] MEDS: POTASSIUM CHLORIDE CRTAB 20 MEQ TABCR PO SCH (22:56)
[2023-04-16] MEDS: hydrALAZINE HCL 25 MG TAB PO SCH (22:56)
[2023-04-16] MEDS: METOPROLOL SUCC 25MG EXT REL TAB PO SCH (22:56)
[2023-04-17] MEDS: NITROGLYCERIN 2% OINTMENT 30GM TUBE EXT SCH ×4 (01:16→20:53)
[2023-04-17] MEDS: hydrALAZINE HCL 25 MG TAB PO SCH (05:32)
[2023-04-17 06:59] LABS: Hematocrit (blood only) 19.1 % (42.0-52.0); Hemoglobin 6.8 g/dl (14.0-18.0); Mean Corpuscular Hemoglobin 30.8 pg (25.0-34.0); Mean Corpuscular Hgb Conc 35.6 g/dL (32.0-36.0); Mean Corpuscular Volume 86.4 fL (80.0-100.0); Mean Platelet Volume 9.9 fL (9.4-12.4); Platelet Count 237 K/uL (130-400); RDW Coefficient of Variation 13.5 % (11.5-14.5); RDW Standard Deviation 42.3 fL (36.4-46.3); Red Blood Count 2.21 M/uL (4.70-6.10); White Blood Count 8.71 K/ul (4.8-10.8)
--- NOTE | 2023-04-17 06:59 | Electrocardiogram Report ---
Test Reason : Blood Pressure : / mmHG Vent. Rate : 091 BPM Atrial Rate : 091 BPM P-R Int : 124 ms QRS Dur : 084 ms QT Int : 376 ms P-R-T Axes : 061 028 143 degrees QTc Int : 462 ms Normal sinus rhythm Possible Left atrial enlargement Left ventricular hypertrophy with repolarization abnormality Abnormal ECG When compared with ECG of 28-JUN-2022 06:20, No significant change Confirmed by Philip Alexandra ([id number]) on 04/17/2023 6:58:25 AM Referred By: Veronika Rai Confirmed By:Philip Alexandra
[2023-04-17 07:11] LABS: Albumin Globulin Ratio 1.2 (0.9-2); Albumin Level 3.1 gm/dl (3.4-5.0); BUN Creatinine Ratio 7.8 (10-20); Bilirubin,Total 0.4 mg/dl (0.2-1.0); Calcium 7.7 mg/dl (8.6-10.3); Est GFR (African American) 4.9 ml/min; Est GFR (Non-African American) 4.3 ml/min; Globulin 2.5 gm/dl (2.5-4.0); Magnesium 2.1 mg/dl (1.7-2.4); Potassium 4.4 mmol/L (3.5-5.1); Total Protein 5.6 gm/dl (6.0-8.3)
[2023-04-17] MEDS: METOPROLOL SUCC 25MG EXT REL TAB PO SCH ×2 (09:03→20:13)
[2023-04-17] MEDS: CYANOCOBALAMIN (B-12) 100 MCG TABLET PO SCH (09:03)
[2023-04-17] MEDS: FUROSEMIDE 40 MG/4 ML VIAL IV SCH ×2 (09:03→20:20)
--- NOTE | 2023-04-17 09:07 | Cardiology Consultation ---
Date of Consultation April 17, 2023 Assessment & Plan (1) Acute renal failure: (2) Acute on chronic heart failure with preserved ejection fraction (HFpEF): (3) Anemia: (4) Pleural effusion: (5) Tricuspid regurgitation: (6) Mitral regurgitation: Plan 58-year-old patient admitted with acute on chronic renal insufficiency with evidence of volume overload, acute congestive heart failure. Preliminary review of bedside echocardiogram demonstrates preserved LV systolic function with left ventricular action fraction 50-54%. Moderate to severe mitral, and moderate to severe tricuspid regurgitation with at least moderate pulmonary hypertension present. Topical nitrates for afterload reduction. Continue metoprolol and hydralazine. Amlodipine remain on hold due to volume overload. Consider titration of hydralazine to 50 mg 3 times daily pending clinical response. Continue IV diuresis per direction of nephrology. Transfuse 1 unit packed red blood cells. There is no vascular surgery coverage at this facility today. Patient will likely require transfer to tertiary care facility for further management including dialysis catheter placement and need for urgent hemodialysis. I spent a total of 56 minutes on the date of service in preparation, delivery, and documentation of the care provided to this patient, excluding any time spent in the performance of separately billed services. History of Present Illness Reason for Consultation: CHF Requesting Physician: Angelita Sauer PA-C Attending Physician: Simone Meyer MD History of Present Illness 58-year-old male with a history of nonischemic cardiomyopathy with normalization of LV systolic function presents to the ER with 1 week of shortness of breath, weakness, and congestion. Evaluated in the outpatient clinic yesterday and ultimately referred to the ER. History of alcohol abuse, however, reports he quit drinking approximately 1 month ago. Medical noncompliance documented as well. Reports flulike illness with new cough, and fatigue. Chest x-ray with bilateral lower lobe infiltrates and small effusions. CT images favor pneumonia with lymphadenopathy and moderate size pleural effusions. Acute renal failure and significant anemia noted on admission with creatinine of 11.6 and hemoglobin of 6.8. Reports progressive shortness of breath for approximately 1 month prior to admission. Reports intermittent chest heaviness. + Orthopnea without PND. +edema. Notes poor appetite. Denies recent NSAID or use of illicit substances. Has not consumed alcohol for more than 1 month. Allergies Allergy/AdvReac Type Severity Reaction Status Date / Time No Known Allergies Allergy Unknown Verified 04/16/23 19:50 Home Medications Medication Instructions Recorded Confirmed Type amlodipine 10 mg tablet 10 mg PO QAM 04/16/23 04/16/23 History cyanocobalamin (vitamin B-12) 100 100 mcg PO QAM 04/16/23 04/16/23 History mcg tablet furosemide 40 mg tablet 40 mg PO BID 04/16/23 04/16/23 History hydralazine 25 mg tablet 25 mg PO TID 04/16/23 04/16/23 History metoprolol succinate 25 mg 25 mg PO AMHS 04/16/23 04/16/23 History tablet,extended release 24 hr potassium chloride 20 mEq 40 meq PO AMHS 04/16/23 04/16/23 History tablet,extended release(part/cryst) (Safia Rosales) Patient History Medical History Tricuspid regurgitation Chronic combined systolic and diastolic CHF (congestive heart failure) CKD (chronic kidney disease) stage 4, GFR 15-29 ml/min PRES (posterior reversible encephalopathy syndrome) Dyslipidemia Suicide attempt Depression Alcohol abuse HTN (hypertension) Surgical History No significant past surgical history Family History Mother Hypertension Social History Smoking Status: Former smoker Second Hand Exposure: No; Do You Dip or Chew Tobacco: No; Tobacco Cessation Education Requested by Patient: No Hx Alcohol Use: Yes Alcohol type: beer Hx Substance Use: No Preferred Language: Turkmen Communication Ability: Effective Battery Service Technician Required: No Beliefs That Will Affect Care: None marital status: Single Current Living Situation: Alone Current Living Situation Comment: Lives alone while brother is at [facility] How many Children do You have: 0 Other Information That Helps Us Care for You: No Feels Safe at Home: Yes Safety Concerns: Feels Safe At This Time Assistive Devices: None Review of Systems Review of Systems: All systems reviewed & are unremarkable except as noted in Subjective Physical Exam Constitutional: + ill appearing; no acute distress Respiratory: no respiratory distress and no retractions Auscultation: + diminished lung sounds (Bases bilateral) and + rales (Bases bilateral); no wheezes Cardiovascular: Rate/Rhythm: regular rate and regular rhythm Heart Sounds: normal S1, normal S2 and + murmur (1/6 midsystolic murmur heard best at left sternal border) Vessels: + JVD Extremities: no edema Gastrointestinal (Abdomen): Inspection/Auscultation: normal bowel sounds; abdomen not distended Percussion/Palpation: abdomen soft; abdomen nontender, no guarding and abdomen not rigid Neurologic: CN's II-XI intact bilaterally and moves all extremities Results & Data Vital Signs (Past 12 Hours) Vital Signs Temp Pulse Resp BP Pulse Ox O2 Del Method O2 Flow Rate 04/17/23 08:02 Nasal Cannula 5 04/17/23 07:00 36.6 C 89 18 144/68 H 95 Nasal Cannula 5 04/17/23 03:26 36.6 C 90 18 156/86 H 94 Nasal Cannula 5 04/17/23 01:52 73 199/111 H 93 Nasal Cannula 2 04/17/23 01:30 90 175/106 H 91 Nasal Cannula 5 04/16/23 22:02 Nasal Cannula 5 04/16/23 22:02 37.1 C 89 24 186/104 H 93 Nasal Cannula 5 Laboratory Results Cardiac Enzymes 04/16/23 04/16/23 04/16/23 Range/Units 15:48 18:05 22:39 AST 15 (13-39) U/L Troponin I High Sens 30.5 H 31.2 H (0-20) pg/ml B-Natriuretic Peptide 2869 H (0-100) pg/ml 04/16/23 04/17/23 Range/Units 22:40 05:41 AST 13 (13-39) U/L Troponin I High Sens 34.4 H 43.4 H (0-20) pg/ml B-Natriuretic Peptide (0-100) pg/ml Coagulation 04/16/23 Range/Units 22:39 B-Natriuretic Peptide 2869 H (0-100) pg/ml CBC 04/16/23 04/17/23 Range/Units 15:48 05:41 WBC 9.50 8.71 (4.8-10.8) K/ul RBC 2.63 L 2.21 L (4.70-6.10) M/uL Hgb 7.9 L 6.8 L* (14.0-18.0) g/dl Hct 23.1 L 19.1 L* (42.0-52.0) % Plt Count 270 237 (130-400) K/uL Neut # (Auto) 7.94 H (1.40-6.50) K/uL Lymph # (Auto) 0.66 L (1.20-3.40) K/uL [place] # (Auto) 0.65 H (0.11-0.59) K/uL Eos # (Auto) 0.17 (0.00-0.50) K/uL Baso # (Auto) 0.03 (0.00-0.20) K/uL Comprehensive Metabolic Panel 04/16/23 04/17/23 Range/Units 15:48 05:41 Sodium 136 137 (136-145) mmol/L Potassium 3.9 4.4 (3.5-5.1) mmol/L Chloride 103 108 H (98-107) mmol/L Carbon Dioxide 16 L 15 L (21-32) mmol/L BUN 83 H 90 H (6-23) mg/dl Creatinine 11.23 H* 11.61 H* D (0.6-1.4) mg/dl Glucose 152 H 104 H (70-99(Fasting)) mg/dl Calcium 8.2 L 7.7 L (8.6-10.3) mg/dl AST 15 13 (13-39) U/L ALT 9 7 (7-52) U/L Alkaline Phosphatase 102 85 (34-104) U/L Total Protein 6.5 5.6 L (6.0-8.3) gm/dl Albumin 3.6 3.1 L (3.4-5.0) gm/dl Intake and Output 04/16/23 04/17/23 04/17/23 22:59 06:59 14:59 Intake Total 150 / 150 Output Total 825 / 825 Balance 150 / -675 -825 / -675 Intake: IV 150 / 150 Doxycycline Hyclate 100 mg In 100 / 100 Dextrose 5% Mini-B 100 ml @ 50 mls/hr IV NOW STA Rx#:[id number] cefTRIAXone SODIUM 1,000 mg In 50 / 50 Dextrose 5 % Mini-B 50 ml @ 100 mls/hr IV Q24H [facility] Rx#: [id number] Output: Urine Amount (Catheter) 825 / 825 Lopez/Indwelling 825 / 825 Other: Other Intake Source NPO Weight 58.7 kg 61.5 kg Weight Measurement Method Built in [facility] Built in [facility] Diagnostic Findings Lexiscan nuclear stress test [facility] record 09/14/2022: Lexiscan nuclear stress test is negative for ischemia or scar. Gated SPECT images reveals normal myocardial thickening and wall motion. The LV ejection fraction is calculated at 55%. Equivocal ECG findings secondary to left ventricular hypertrophy with secondary ST T-wave abnormality. 2D echo report [facility] record 08/26/2022: Calculated LV ejection Fraction = 58% (three dimensional volumes). The qualitative LV ejection fraction is 55-59% (normal). The LV wall thickness is moderately increased (concentric). The left atrium is mildly enlarged (35-41 ml/m^2). The left ventricular diastolic function is mildly abnormal (grade I). Mild aortic valve sclerosis is present. Mild mitral regurgitation is present. Mild tricuspid regurgitation is present. There is no evidence of pulmonary hypertension. Compared to prior study of 10/12/2018, there is no significant change. ECG Additional Comments: ECG on admission normal sinus rhythm with left ventricular enlargement and left ventricular hypertrophy. No change compared to prior study. ECG today 04/17/2023: Normal sinus rhythm with left ventricular hypertrophy. No change compared to previous. (1) Acute renal failure Acute renal failure type: unspecified Qualified Code(s): N17.9 - Acute kidney failure, unspecified (3) Anemia Anemia type: unspecified type Qualified Code(s): D64.9 - Anemia, unspecified (5) Tricuspid regurgitation Cardiac valve disease etiology: nonrheumatic Qualified Code(s): I36.1 - Nonrheumatic tricuspid (valve) insufficiency (6) Mitral regurgitation Cardiac valve disease etiology: nonrheumatic Qualified Code(s): I34.0 - Nonrheumatic mitral (valve) insufficiency
--- NOTE | 2023-04-17 13:46 | Nephrology Consultation ---
Date of Consultation April 17, 2023 Assessment & Plan (1) Acute renal failure superimposed on stage 4 chronic kidney disease: CKD (chronic kidney disease) stage 4, GFR 15-29 ml/min, baseline cR in mid 2.0, admitted with BUN/ Cr 88/11.4 with metabolin acidosis and Shortness if breath>> multifactorial, decompensated heart failure, likley CAP and progression Of CKD. -he has been non compliant with medication and follow up, with episodes of TISHA and uncontrolled HTN,he is high risk of progression to ESRD>>> he is likley ESRD now. Though he is making urine,this is not adequate , he continues to be in respiratory distress requiring high Oxygen. -He has refused the temporary line and blood transfusion today, Dr Meyer had along conversation with him regarding the consequences>>> he fully understands this but is adamant, I will not be surprised if he changes his mind again as he was very unsure when I spoke to him earlier in the day. - Continue with high dose lasix 100 mg BID - Daily Input and out. (2) Acute on chronic combined systolic (congestive) and diastolic (congestive) heart failure: Continue on lasix -- daily weight >> recommend STANDING weights - waiting cardiology recs. (3) Hypertension: -Hypertensive in ER, better now Resume home hydralazine, metoprolol and lasix as above (4) Anemia: H/H: 7.9/23 which further dropped to 6.8 today>>>. Hgb was 13 on 08/06/2022 Denies melena, hematochezia Hemoccult stool Anemia labs pending, monitor H&H. - refused blood transfusion. (5) Pleural effusion: (6) Pneumonia: History of Present Illness Reason for Consultation: Acute kidney injury on ckd -4 ( baseline Scr in mid 2.0's) Attending Physician: Simone Meyer MD History of Present Illness 58 y/o M presented to ER for progressive shortness of breath, extremity edema in setting of medication noncompliance, and abnormal outpatient labs and chest x- ray. In ER patient afebrile, P: 92, R: 20, BP: 169/95, 94% on room air. No leukocytosis UA without significant signs of infection. Negative respiratory panel CXR: Bilateral lower lung predominant airspace opacities which may represent atelectasis, pneumonia, and/or aspiration. Small bilateral pleural effusions are seen. CT chest w/o contrast: Moderate bilateral pleural effusions are seen. Consolidative and groundglass opacities with lymphadenopathy are favored to represent pneumonia. Denies CP, diaphoresis, N/V/D/C Echo 05/2022 EF: 35-40%, improved with medical therapies with EF 55% on echo in 08/2022. Seen in cardiology clinic 11/2022. Lasix decreased from 40mg BID to 40mg daily with ability to take extra if needed, and potassium was increased to 40meq bid PMH- nonischemic cardiomyopathy,valvular heart disease (mild MR/TR ), chronic combined CHF, CKD IV, HTN, depression, ETOH use , presented to ER for progressive shortness of breath, extremity edema Allergies Allergy/AdvReac Type Severity Reaction Status Date / Time No Known Allergies Allergy Unknown Verified 04/16/23 19:50 Home Medications Medication Instructions Recorded Confirmed Type amlodipine 10 mg tablet 10 mg PO QAM 04/16/23 04/16/23 History cyanocobalamin (vitamin B-12) 100 100 mcg PO QAM 04/16/23 04/16/23 History mcg tablet furosemide 40 mg tablet 40 mg PO BID 04/16/23 04/16/23 History hydralazine 25 mg tablet 25 mg PO TID 04/16/23 04/16/23 History metoprolol succinate 25 mg 25 mg PO AMHS 04/16/23 04/16/23 History tablet,extended release 24 hr potassium chloride 20 mEq 40 meq PO AMHS 04/16/23 04/16/23 History tablet,extended release(part/cryst) (Klor-Con M) Patient History Medical History Tricuspid regurgitation Chronic combined systolic and diastolic CHF (congestive heart failure) CKD (chronic kidney disease) stage 4, GFR 15-29 ml/min PRES (posterior reversible encephalopathy syndrome) Dyslipidemia Suicide attempt Depression Alcohol abuse HTN (hypertension) Surgical History No significant past surgical history Family History Mother Hypertension Social History (Reviewed 04/17/23 @ 11:32 by LIAM Peña Smoking Status: Former smoker Second Hand Exposure: No; Do You Dip or Chew Tobacco: No; Tobacco Cessation Education Requested by Patient: No Hx Alcohol Use: Yes Alcohol type: beer Hx Substance Use: No Preferred Language: Lao Communication Ability: Effective [employer] Required: No Beliefs That Will Affect Care: None marital status: Single Current Living Situation: Alone Current Living Situation Comment: Lives alone while brother is at snf How many Children do You have: 0 Other Information That Helps Us Care for You: No Feels Safe at Home: Yes Safety Concerns: Feels Safe At This Time Assistive Devices: None Review of Systems 2 Review of Systems: IN respiratory distress Cachetic, ill appearing Physical Exam 2 Physical Exam: CONSTITUTIONAL: ill appearing, cachetic, in respiratory distress. RESPIRATORY: bilaterally crackles CARDIOVASCULAR: regular rate and rhythm, Systolic murmer, rasied JVD, no peripheral edema GASTROINTESTINAL: soft, nontender, ND, no guarding SKIN: warm and dry NEUROLOGIC:Grossly intact, no sensory deficit EXTERMITIES-No Edema Results & Data Vital Signs (Past 12 Hours) Vital Signs Temp Pulse Resp BP Pulse Ox O2 Del Method O2 Flow Rate 04/17/23 08:02 Nasal Cannula 5 04/17/23 07:00 36.6 C 89 18 144/68 H 95 Nasal Cannula 5 04/17/23 03:26 36.6 C 90 18 156/86 H 94 Nasal Cannula 5 04/17/23 01:52 73 199/111 H 93 Nasal Cannula 2 04/17/23 01:30 90 175/106 H 91 Nasal Cannula 5 Laboratory Results 04/17/23 05:41 04/17/23 05:41 (1) Acute renal failure superimposed on stage 4 chronic kidney disease Acute renal failure type: unspecified Qualified Code(s): N17.9 - Acute kidney failure, unspecified; N18.4 - Chronic kidney disease, stage 4 (severe)
--- NOTE | 2023-04-17 14:34 | Hospitalist Progress Note ---
Date of Service April 17, 2023 Assessment & Plan (1) Acute on chronic combined systolic (congestive) and diastolic (congestive) heart failure: Plan: Patient is 58 y/o M with nonischemic cardiomyopathy, chronic combined CHF, CKD IV, HTN, depression, ETOH use presented to ER for progressive shortness of breath, extremity edema in setting of medication noncompliance, and abnormal outpatient labs and chest x-ray In ER patient afebrile, P: 92, R: 20, BP: 169/95, 94% on room air. No leukocytosis UA without significant signs of infection. Negative respiratory panel CXR: Bilateral lower lung predominant airspace opacities which may represent atelectasis, pneumonia, and/or aspiration. Small bilateral pleural effusions are seen. CT chest w/o contrast: Moderate bilateral pleural effusions are seen. Consolidative and groundglass opacities with lymphadenopathy are favored to represent pneumonia. In ER given 1L NSS, Rocephin, doxycycline Troponin: 30.5-->31.2 During ER course patient becomes increasingly anxious, tachypneic and SOB. Noted to have sinus tachycardia on monitor rate 112, BP 165/111, 89% on room air up to 93% on 3 L nasal cannula. Lasix 100 mg IV stat ordered as well as Nitropaste BiPAP attempted however patient was unable to tolerate. Patient was given dose of Ativan and BiPAP attempted again however patient refused as was feeling less SOB. HR improved to 90's and sats 93% on 3L EKG ordered BNP elevated at 2869 Continue supplemental O2 - currently on 5L Lasix 100 mg IV twice daily - per nephrology Continue Nitropaste Hold on antibiotics at this time as low suspicion for pneumonia, suspect this is CHF Echo obtained -EF 50 to 55%. Moderate concentric LVH. Aortic valve sclerosis mild without significant aortic valvular stenosis. Moderate to severe mitral regurg. Posteriorly directed, eccentric mitral regurgitation jet. There is moderate to severe tricuspid regurg. Estimated systolic pulmonary pressure is 63 mmHg. Small circumferential pericardial effusion. There are no echocardiographic indications of cardiac tamponade. Moderate size right pleural effusion. Moderate-sized left pleural effusion. Cardiology consulted - Pt admitted w/ TISHA on CKD, volume overload, acute congestive HF. Topical nitrates for afterload reduction. Continue metoprolol and hydralazine. Amlodipine remain on hold due to volume overload. Consider titration of hydralazine to 50 mg 3 times daily pending clinical response. Continue IV diuresis per direction of nephrology. (2) Acute renal failure: Plan: Acute renal failure on CKD IV BUN:83, Cr:11 CT abdomen pelvis: No acute abnormalities are seen to explain abdominal pain per radiology read Patient with urine output in ER Monitor I's and O's Possible cardiorenal syndrome ER physician consulted on-call secondary history teacher who recommended Lasix 100 mg twice daily Nephrology consulted - discussed to place catheter for dialysis, pt refused. Also discussed blood transfusion - pt refused. -he has been non compliant with medication and follow up, with episodes of TISHA and uncontrolled HTN,he is high risk of progression to ESRD>>> he is likely ESRD now. Though he is making urine,this is not adequate , he continues to be in respiratory distress requiring high Oxygen. - Continue with high dose lasix 100 mg BID - Daily Input and out. BMP in a.m. (3) Anemia: Plan: H/H: 7.01/16. Hgb was13 on 08/06/2022 Denies melena, hematochezia Hemoccult stool Anemia labs pending, monitor H&H. 04/17 Hgb 6.8 - discussed blood transfusion several times - pt refused. At this time does not wish for transfusion. Discussed w/ RN at the bedside. Monitor H&H (4) HTN (hypertension): Plan: Hypertensive in ER. Started Lasix, Nitropaste as above Resume home hydralazine, metoprolol Hold amlodipine (5) Depression: Plan: Prior history of depression Not currently on medications DVT Prophylaxis SCDs Follows with Dr Rai for routine care CODE: discussed code status in detail w/ RN present at the bedside -changed to DNR/DNI Admission and Anticipated Discharge Date Admission Date: April 16, 2023 Subjective Pt seen in follow up of acute hypoxic resp. failure, TISHA on CKD, acute CHF, anemia Patient's hemoglobin 6.8 this morning, discussed in detail with the patient and he does not wish to proceed with blood transfusion. Nephrology and cardiology were both consulted and discussed with in detail. Discussed that he may need dialysis and therefore a line/catheter should be pl aced. ICU aware, and willing to place temporary line, however patient declined. Discussed again with the patient and his RN at the bedside goals of care. Patient is very clear that he does not want to proceed with catheter placement for dialysis, or blood transfusion at this time. We discussed CODE STATUS and changed to DNR DNI. Patient wishes to be comfortable in the event of decompensation. Updated Dr. Swain from nephrology, no plan for dialysis today. Overall pt says his breathing is easier and he does not feel chest pressure as he did when he first came to the hospital. No abd. pain. No fever,chills. Review of Systems Review of Systems: All systems reviewed & are unremarkable except as noted in Subjective Physical Exam Physical Exam: General : thin M chronically ill appearing , on suppl. O2 HEENT: NC/AT, EOMI, + JVD RESP: +diffuse bilateral crackles CV: rrr, +LIVIER MSK Bilateral trace edema (improved) Neuro: alert, oriented, answers appropriately, speech fluent, no facial asymmetry, moves extremities Skin: warm, dry Results & Data Results & Data Vital Signs (Past 12 Hours) Vital Signs Temp Pulse Resp BP Pulse Ox O2 Del Method O2 Flow Rate 04/17/23 11:00 36.6 C 99 H 18 162/77 H 96 Nasal Cannula 5 04/17/23 08:02 Nasal Cannula 5 04/17/23 07:00 36.6 C 89 18 144/68 H 95 Nasal Cannula 5 04/17/23 03:26 36.6 C 90 18 156/86 H 94 Nasal Cannula 5 Laboratory Results Hgb 6.8 this AM, Cr 11 (up from 2 which is pt's baseline) (2) Acute renal failure Acute renal failure type: unspecified Qualified Code(s): N17.9 - Acute kidney failure, unspecified (3) Anemia Anemia type: unspecified type Qualified Code(s): D64.9 - Anemia, unspecified (4) HTN (hypertension) Hypertension type: unspecified Qualified Code(s): I10 - Essential (primary) hypertension
--- NOTE | 2023-04-17 14:50 | Critical Care Consultation ---
Date of Consultation April 17, 2023 Assessment & Plan (1) Acute renal failure superimposed on stage 4 chronic kidney disease: I was requested to place a hemodialysis catheter. At this time patient is refusing hemodialysis and placement of a hemodialysis catheter. He would like to talk things over with his friend and think about it further. He is aware that our dialysis availability may be limited this weekend after today and that if he decides that he wants a hemodialysis catheter later in the evening or tomorrow, that he may need transfer to a tertiary care facility. Recommend palliative care consultation. I discussed the patient's refusal of a hemodialysis catheter with the patient's nurse, float nurse and hospitalist service. Patient does seem to have good insight into his overall condition and understands that without hemodialysis, he is likely to from cardiorenal failure. (2) Acute on chronic heart failure with preserved ejection fraction (HFpEF): He is responding poorly to diuresis given his worsening renal function. He is likely to due to his cardiorenal syndrome without hemodialysis. Palliative care consult recommended. (3) Pneumonia: No clear evidence of pneumonia at this time. I suspect the pulmonary infil trates are related to pulmonary edema. (4) Anemia: Defer to primary team for management. Plan ICU team will not follow the patient unless the patient changes his mind regarding hemodialysis and critical care needs are required. Thank you for allowing me to participate in the care of the patient. Please call with questions. History of Present Illness Reason for Consultation: Need for hemodialysis catheter Attending Physician: Simone Meyer MD History of Present Illness 58-year-old male with a history of vasculopathy, CKD stage III, alcohol abuse, heart failure with reduced ejection fraction and depression presented with acutely worsening shortness of breath and fatigue. Patient notes at baseline he is fatigued and short of breath. His appetite is typically poor. He notes that he does not have much family support and he lives alone and snowshoeing. He does not drive a car. He has some friends that check on him from time to time. He is aware that he has had ongoing worsening renal dysfunction and now nephrology is recommending hemodialysis. I was consulted for placement of hemodialysis catheter. Patient indicates that he does not know whether he would want to undergo hemodialysis and is uncertain about what his goals of care are at this time. He is a DNR/DNI and indicates that he may want to transition to comfort measures. He wants to talk to his family first. He has also apparently refused blood transfusion since he has acute on chronic anemia of unclear etiology. Allergies Allergy/AdvReac Type Severity Reaction Status Date / Time No Known Allergies Allergy Unknown Verified 04/16/23 19:50 Home Medications Medication Instructions Recorded Confirmed Type amlodipine 10 mg tablet 10 mg PO QAM 04/16/23 04/16/23 History cyanocobalamin (vitamin B-12) 100 100 mcg PO QAM 04/16/23 04/16/23 History mcg tablet furosemide 40 mg tablet 40 mg PO BID 04/16/23 04/16/23 History hydralazine 25 mg tablet 25 mg PO TID 04/16/23 04/16/23 History metoprolol succinate 25 mg 25 mg PO AMHS 04/16/23 04/16/23 History tablet,extended release 24 hr potassium chloride 20 mEq 40 meq PO AMHS 04/16/23 04/16/23 History tablet,extended release(part/cryst) (Safia Rosales) Patient History Medical History Tricuspid regurgitation Chronic combined systolic and diastolic CHF (congestive heart failure) CKD (chronic kidney disease) stage 4, GFR 15-29 ml/min PRES (posterior reversible encephalopathy syndrome) Dyslipidemia Suicide attempt Depression Alcohol abuse HTN (hypertension) Surgical History No significant past surgical history Family History Mother Hypertension Social History Smoking Status: Former smoker Second Hand Exposure: No; Do You Dip or Chew Tobacco: No; Tobacco Cessation Education Requested by Patient: No Hx Alcohol Use: Yes Alcohol type: beer Hx Substance Use: No Preferred Language: Congolese Communication Ability: Effective [employer] Required: No Beliefs That Will Affect Care: None marital status: Single Current Living Situation: Alone Current Living Situation Comment: Lives alone while brother is at [facility] How many Children do You have: 0 Other Information That Helps Us Care for You: No Feels Safe at Home: Yes Safety Concerns: Feels Safe At This Time Assistive Devices: None Review of Systems Review of Systems: All systems reviewed & are unremarkable except as noted in HPI & below Physical Exam Physical Exam: Constitutional: Patient appears to be of their stated age. Frail and cachectic appearing male in no apparent distress. Eyes: Pupils are equal round and reactive to light. Conjunctivae are normal. Anicteric sclera. Ears nose, mouth and throat: Mallampati class 1. Normal posterior oropharynx. Uvula is midline. Neck: Trachea is midline. Visual inspection is normal. Respiratory: Tachypneic. Rhonchi bilaterally. Mildly increased work of breathing. Cardiovascular: Regular rate and rhythm. No murmurs. No edema. Gastrointestinal: Normal bowel sounds, soft, nontender and nondistended. No hepatosplenomegaly noted. Musculoskeletal: No cyanosis. Patient is able to move all extremities. Strength is 5 out of 5 in the upper and lower extremities. Skin: No rashes, warm dry and intact. Neurologic: No obvious focal neurological deficits seen. Psychiatric: Alert and oriented x3 with a euthymic affect. Results & Data Results & Data Vital Signs (Past 12 Hours) Vital Signs Temp Pulse Resp BP Pulse Ox O2 Del Method O2 Flow Rate 04/17/23 11:00 36.6 C 99 H 18 162/77 H 96 Nasal Cannula 5 04/17/23 08:02 Nasal Cannula 5 04/17/23 07:00 36.6 C 89 18 144/68 H 95 Nasal Cannula 5 04/17/23 03:26 36.6 C 90 18 156/86 H 94 Nasal Cannula 5 Coding Level of Care Code 45346 IN/OBS CONSULT LVL 4,60M Diagnoses Acute renal failure superimposed on stage 4 chronic kidney disease, unspecified acute renal failure type N17.9; N18.4 Acute renal failure type: unspecified Acute on chronic heart failure with preserved ejection fraction (HFpEF) I50.33 Pneumonia J18.9 Anemia D64.9 (1) Acute renal failure superimposed on stage 4 chronic kidney disease Acute renal failure type: unspecified Qualified Code(s): N17.9 - Acute kidney failure, unspecified; N18.4 - Chronic kidney disease, stage 4 (severe)
[2023-04-17] MEDS ORDERED: LEVALBUTEROL 1.25MG/0.5ML NEB NEB STA (19:31)
[2023-04-17] MEDS ORDERED: LEVALBUTEROL 1.25MG/0.5ML NEB NEB PRN (19:31)
[2023-04-17] MEDS ORDERED: LEVALBUTEROL 1.25 MG/3 ML NEB ONE (19:44)
[2023-04-17] MEDS: POTASSIUM CHLORIDE CRTAB 20 MEQ TABCR PO SCH ×2 (20:18→20:21)
[2023-04-17] MEDS: hydrALAZINE TAB 50 MG TAB PO SCH ×2 (20:22→21:38)
[2023-04-18] MEDS: NITROGLYCERIN 2% OINTMENT 30GM TUBE EXT SCH ×4 (01:29→17:23)
[2023-04-18] MEDS: hydrALAZINE TAB 50 MG TAB PO SCH ×3 (05:38→21:43)
[2023-04-18 06:33] LABS: Calcium 7.9 mg/dl (8.6-10.3); Creatinine Clr Calc Pharmacy 5.8 ml/min; Est GFR (African American) 4.7 ml/min; Est GFR (Non-African American) 4.1 ml/min; Magnesium 2.1 mg/dl (1.7-2.4); Phosphorus 7.5 mg/dl (2.5-4.9)
[2023-04-18 06:50] LABS: Hematocrit (blood only) 20.1 % (42.0-52.0); Hemoglobin 6.9 g/dl (14.0-18.0); Mean Corpuscular Hemoglobin 30.7 pg (25.0-34.0); Mean Corpuscular Hgb Conc 34.3 g/dL (32.0-36.0); Mean Corpuscular Volume 89.3 fL (80.0-100.0); Platelet Count 253 K/uL (130-400); RDW Coefficient of Variation 13.7 % (11.5-14.5); RDW Standard Deviation 44.3 fL (36.4-46.3); Red Blood Count 2.25 M/uL (4.70-6.10); White Blood Count 10.58 K/ul (4.8-10.8)
[2023-04-18] MEDS: FUROSEMIDE 40 MG/4 ML VIAL IV SCH ×2 (08:52→17:24)
[2023-04-18] MEDS: CYANOCOBALAMIN (B-12) 100 MCG TABLET PO SCH (08:52)
[2023-04-18] MEDS: POTASSIUM CHLORIDE CRTAB 20 MEQ TABCR PO SCH ×2 (08:56→21:23)
[2023-04-18] MEDS: METOPROLOL SUCC 25MG EXT REL TAB PO SCH ×2 (08:57→21:22)
--- NOTE | 2023-04-18 09:49 | Nephrology Progress Note ---
Date of Service April 18, 2023 Assessment & Plan (1) Acute renal failure superimposed on stage 4 chronic kidney disease: Plan: CKD (chronic kidney disease) stage 4, GFR 15-29 ml/min, baseline cR in mid 2.0, admitted with BUN/ Cr 88/11.4 with metabolin acidosis and Shortness if breath>> multifactorial, decompensated heart failure, likley CAP and progression Of CKD. -he has been non compliant with medication and follow up, with episodes of TISHA and uncontrolled HTN,he is high risk of progression to ESRD>>> he is likley ESRD now. He has refused the temporary line and blood transfusion yesterday, Dr Meyer had a long conversation with him regarding the consequences>>> he fully understands this but is adamant. -- Does not want dialysis, wants to be comfortable. - Recommend Palliative care consult. - Continue with high dose lasix 100 mg BID and comfort measures. (2) Acute on chronic combined systolic (congestive) and diastolic (congestive) heart failure: Plan: Continue on lasix. (3) Hypertension: Plan: -Hypertensive in ER, better now Resume home hydralazine, metoprolol and lasix as above (4) Anemia: Plan: H/H: 7.9/23 which further dropped to 6.8 today>>>. Hgb was 13 on 08/06/2022 Denies melena, hematochezia Hemoccult stool Anemia labs pending, monitor H&H. - refused blood transfusion. (5) Pleural effusion: (6) Pneumonia: Admission and Anticipated Discharge Date Admission Date: April 16, 2023 Subjective Pt seen in follow up of acute hypoxic resp. failure, TISHA on CKD, acute CHF, anemia Refused dialysis and blood transfusion yesterday. Continues to be in respiratory distress UOP has improved, Renal fucntions continue to decline. Reiterated that "I am done, I just want to be comfortable". Wants to continue with fluids, Lasix and anything" that makes him comfortable" Review of Systems 2 Review of Systems: Ill appearing", in respiratory distress Physical Exam 2 Physical Exam: CONSTITUTIONAL: ill appearing, cachetic, in respiratory distress. RESPIRATORY: bilaterally crackles CARDIOVASCULAR: regular rate and rhythm, Systolic murmer, rasied JVD, no peripheral edema GASTROINTESTINAL: soft, nontender, ND, no guarding SKIN: warm and dry NEUROLOGIC:Grossly intact, no sensory deficit EXTERMITIES-No Edema Results & Data Vital Signs (Past 12 Hours) Vital Signs Temp Pulse Pulse Resp BP Pulse Ox O2 Del Method 04/18/23 07:45 Oxymask 04/18/23 03:45 36.8 C 89 18 166/89 H 93 Oxymask 04/18/23 00:44 36.8 C 91 H 22 171/91 H 95 Oxymask 04/18/23 00:17 85 O2 Flow Rate 04/18/23 07:45 6 04/18/23 03:45 6 04/18/23 00:44 6 04/18/23 00:17 Laboratory Results 04/18/23 05:39 04/18/23 05:39 (1) Acute renal failure superimposed on stage 4 chronic kidney disease Acute renal failure type: unspecified Qualified Code(s): N17.9 - Acute kidney failure, unspecified; N18.4 - Chronic kidney disease, stage 4 (severe)
--- NOTE | 2023-04-18 10:56 | Cardiology Progress Note ---
Date of Service April 18, 2023 Assessment & Plan (1) Acute renal failure: (2) Acute on chronic heart failure with preserved ejection fraction (HFpEF): (3) Anemia: (4) Pleural effusion: (5) Tricuspid regurgitation: (6) Mitral regurgitation: Plan 58-year-old patient admitted with acute on chronic renal insufficiency with evidence of volume overload, acute congestive heart failure. Patient declining hemodialysis. Continue topical nitrates, hydralazine, and metoprolol as ordered. Continue IV diuresis per direction of nephrology. Poor prognosis due to renal failure, heart failure with preserved ejection fraction, cardiorenal syndrome. Continue high-dose furosemide per direction of neurology. Recommend palliative care consultation. Admission and Anticipated Discharge Date Admission Date: April 16, 2023 Subjective Patient seen examined the bedside. Dyspnea improved with OxyMask. Declining hemodialysis. Blood pressure remains elevated. No chest discomfort. Telemetry reveals sinus rhythm in the 80s. Fluid balance -1200 cc. Review of Systems Review of Systems: All systems reviewed & are unremarkable except as noted in Subjective Physical Exam Constitutional: + ill appearing; no acute distress Respiratory: no respiratory distress and no retractions Auscultation: + diminished lung sounds (Bases bilateral) and + rales (Bases bilateral); no wheezes Cardiovascular: Rate/Rhythm: regular rate and regular rhythm Heart Sounds: normal S1, normal S2 and + murmur (1/6 midsystolic murmur heard best at left sternal border) Vessels: + JVD Extremities: no edema Gastrointestinal (Abdomen): Inspection/Auscultation: normal bowel sounds; abdomen not distended Percussion/Palpation: abdomen soft; abdomen nontender, no guarding and abdomen not rigid Neurologic: CN's II-XI intact bilaterally and moves all extremities Results & Data Vital Signs (Past 12 Hours) Vital Signs Temp Pulse Pulse Resp BP Pulse Ox O2 Del Method 04/18/23 07:45 Oxymask 04/18/23 03:45 36.8 C 89 18 166/89 H 93 Oxymask 04/18/23 00:44 36.8 C 91 H 22 171/91 H 95 Oxymask 04/18/23 00:17 85 O2 Flow Rate 04/18/23 07:45 6 04/18/23 03:45 6 04/18/23 00:44 6 04/18/23 00:17 Laboratory Results Cardiac Enzymes 04/17/23 04/17/23 Range/Units 12:00 18:38 Troponin I High Sens 41.5 H 45.9 H (0-20) pg/ml CBC 04/18/23 Range/Units 05:39 WBC 10.58 (4.8-10.8) K/ul RBC 2.25 L (4.70-6.10) M/uL Hgb 6.9 L* (14.0-18.0) g/dl Hct 20.1 L* (42.0-52.0) % Plt Count 253 (130-400) K/uL Comprehensive Metabolic Panel 04/18/23 Range/Units 05:39 Sodium 136 (136-145) mmol/L Potassium 4.0 (3.5-5.1) mmol/L Chloride 104 (98-107) mmol/L Carbon Dioxide 15 L (21-32) mmol/L BUN 97 H (6-23) mg/dl Creatinine 12.08 H* D (0.6-1.4) mg/dl Glucose 115 H (70-99(Fasting)) mg/dl Calcium 7.9 L (8.6-10.3) mg/dl Intake and Output 04/17/23 04/18/23 04/18/23 22:59 06:59 14:59 Intake Total 550 / 950 200 / 950 Output Total 1450 / 2225 525 / 2225 Balance -900 / -1275 -325 / -1275 Intake: Oral 550 / 950 200 / 950 Output: Urine Amount (Catheter) 1450 / 2225 525 / 2225 Lopez/Indwelling 1450 / 2225 525 / 2225 Other: Weight 61.2 kg Weight Measurement Method Built in [facility] (1) Acute renal failure Acute renal failure type: unspecified Qualified Code(s): N17.9 - Acute kidney failure, unspecified (3) Anemia Anemia type: unspecified type Qualified Code(s): D64.9 - Anemia, unspecified (5) Tricuspid regurgitation Cardiac valve disease etiology: nonrheumatic Qualified Code(s): I36.1 - N onrheumatic tricuspid (valve) insufficiency (6) Mitral regurgitation Cardiac valve disease etiology: nonrheumatic Qualified Code(s): I34.0 - Nonrheumatic mitral (valve) insufficiency
[2023-04-18] MEDS ORDERED: LEVALBUTEROL 1.25 MG/3 ML NEB ONE (11:53)
--- NOTE | 2023-04-18 16:00 | Hospitalist Progress Note ---
Date of Service April 18, 2023 Assessment & Plan (1) Acute on chronic combined systolic (congestive) and diastolic (congestive) heart failure: Plan: Patient is 58 y/o M with nonischemic cardiomyopathy, chronic combined CHF, CKD IV, HTN, depression, ETOH use presented to ER for progressive shortness of breath, extremity edema in setting of medication noncompliance, and abnormal outpatient labs and chest x-ray In ER patient afebrile, P: 92, R: 20, BP: 169/95, 94% on room air. No leukocytosis UA without significant signs of infection. Negative respiratory panel CXR: Bilateral lower lung predominant airspace opacities which may represent atelectasis, pneumonia, and/or aspiration. Small bilateral pleural effusions are seen. CT chest w/o contrast: Moderate bilateral pleural effusions are seen. Consolidative and groundglass opacities with lymphadenopathy are favored to represent pneumonia. In ER given 1L NSS, Rocephin, doxycycline Troponin: 30.5-->31.2 During ER course patient becomes increasingly anxious, tachypneic and SOB. Noted to have sinus tachycardia on monitor rate 112, BP 165/111, 89% on room air up to 93% on 3 L nasal cannula. Lasix 100 mg IV stat ordered as well as Nitropaste BiPAP attempted however patient was unable to tolerate. Patient was given dose of Ativan and BiPAP attempted again however patient refused as was feeling less SOB. HR improved to 90's and sats 93% on 3L EKG ordered BNP elevated at 2869 Continue supplemental O2 - currently on oxymask 6L Lasix 100 mg IV twice daily - per nephrology Continue Nitropaste Hold on antibiotics at this time as low suspicion for pneumonia, suspect this is 2/2 volume overload - TISHA on CKD, CHF Echo obtained -EF 50 to 55%. Moderate concentric LVH. Aortic valve sclerosis mild without significant aortic valvular stenosis. Moderate to severe mitral regurg. Posteriorly directed, eccentric mitral regurgitation jet. There is moderate to severe tricuspid regurg. Estimated systolic pulmonary pressure is 63 mmHg. Small circumferential pericardial effusion. There are no echocardiographic indications of cardiac tamponade. Moderate size right pleural effusion. Moderate-sized left pleural effusion. Cardiology consulted - Pt admitted w/ TISHA on CKD, volume overload, acute congestive HF. Topical nitrates for afterload reduction. Continue metoprolol and hydralazine. Amlodipine remain on hold due to volume overload. Poor progn osis due to renal failure, heart failure with preserved ejection fraction, cardiorenal syndrome. Continue high-dose furosemide per direction of neurology. Recommend palliative care consultation. (2) Acute renal failure: Plan: Acute renal failure on CKD IV BUN:83, Cr:11 CT abdomen pelvis: No acute abnormalities are seen to explain abdominal pain per radiology read Patient with urine output in ER Monitor I's and O's Possible cardiorenal syndrome ER physician consulted on-call licensed tax consultant who recommended Lasix 100 mg twice daily Nephrology consulted - discussed to place catheter for dialysis, pt refused. Also discussed blood transfusion - pt refused. -he has been non compliant with medication and follow up, with episodes of TISHA and uncontrolled HTN,he is high risk of progression to ESRD>>> he is likely ESRD now. Though he is making urine,this is not adequate , he continues to be in respiratory distress requiring high Oxygen. - Does not want dialysis, wants to be comfortable. - Recommend Palliative care consult. - Continue with high dose lasix 100 mg BID and comfort measures. BMP in a.m. (3) Anemia: Plan: H/H: 7.9. Hgb was13 on 08/06/2022 Denies melena, hematochezia Hemoccult stool Anemia labs - iron 31, transferrin, 190, ferritin 279, monitor H&H. 04/17 Hgb 6.8 - discussed blood transfusion several times - pt refused. At this time does not wish for transfusion. Discussed w/ RN at the bedside. Monitor H&H (4) HTN (hypertension): Plan: Hypertensive in ER. Started Lasix, Nitropaste as above cont. hydralazine, metoprolol Hold amlodipine (5) Depression: Plan: Prior history of depression Not currently on medications DVT Prophylaxis SCDs Follows with Dr Rai for routine care CODE: discussed code status in detail w/ RN present at the bedside -changed to DNR/DNI. Palliative medicine consulted for symptom management and goals of care. Admission and Anticipated Discharge Date Admission Date: April 16, 2023 Subjective Pt seen in follow up of acute hypoxic resp. failure, TISHA on CKD, acute CHF, anemia Patient's hemoglobin 6.8 yesterday morning, discussed in detail with the patient and he does not wish to proceed with blood transfusion. Hgb 6.9 today and discussed again with his RN present at the bedside - pt does not wish for blood transfusion. Nephrology and cardiology were both consulted and discussed with in detail. Discussed that he may need dialysis and therefore a line/catheter should be placed. ICU aware, and willing to place temporary line, however patient declined. Discussed again with the patient and his RN at the bedside today - Pt does not want catheter placement for dialysis, or blood transfusion at this time. Pt is sitting up in bed on oxymask, 6L, has conversational dyspnea. He reports feeling ok and denies any chest pain. No abd. pain. No fever,chills. Review of Systems Review of Systems: All systems reviewed & are unremarkable except as noted in Subjective Physical Exam Physical Exam: General : thin M chronically ill appearing , on oxymask 6L HEENT: NC/AT, EOMI RESP: +diffuse bilateral crackles CV: rrr, +LIVIER MSK Bilateral trace edema (improved) Neuro: alert, oriented, answers appropriately, speech fluent, no facial asymmetry, moves extremities Skin: warm, dry Results & Data Results & Data Vital Signs (Past 12 Hours) Vital Signs Temp Pulse Resp BP Pulse Ox O2 Del Method O2 Flow Rate 04/18/23 12:00 36.8 C 90 20 170/97 H 94 Oxymask 6 04/18/23 11:54 90 22 98 Oxymask 6 04/18/23 07:45 Oxymask 6 Laboratory Results 04/18/23 04/17/23 Range/Units 05:39 18:38 WBC 10.58 (4.8-10.8) K/ul RBC 2.25 L (4.70-6.10) M/uL Hgb 6.9 L* (14.0-18.0) g/dl Hct 20.1 L* (42.0-52.0) % MCV 89.3 (80.0-100.0) fL MCH 30.7 (25.0-34.0) pg MCHC 34.3 (32.0-36.0) g/dL RDW Std Deviation 44.3 (36.4-46.3) fL RDW Coeff of Juliette 13.7 (11.5-14.5) % Plt Count 253 (130-400) K/uL MPV 10.0 (9.4-12.4) fL Sodium 136 (136-145) mmol/L Potassium 4.0 (3.5-5.1) mmol/L Chloride 104 (98-107) mmol/L Carbon Dioxide 15 L (21-32) mmol/L Anion Gap 17 H (3-11) BUN 97 H (6-23) mg/dl Creatinine 12.08 H* D (0.6-1.4) mg/dl Est Cr Clr Drug Dosing 5.8 ml/min Est GFR ( Amer) 4.7 ml/min Est GFR (Non-Af Amer) 4.1 ml/min BUN/Creatinine Ratio 8.0 L (10-20) Glucose 115 H (70-99(Fasting)) mg/dl Calcium 7.9 L (8.6-10.3) mg/dl Phosphorus 7.5 H (2.5-4.9) mg/dl Magnesium 2.1 (1.7-2.4) mg/dl Troponin I High Sens 45.9 H (0-20) pg/ml Medications Administered Current Inpatient Medications Acetaminophen (Acetaminophen 325 Mg Tab) 650 mg PO Q4H PRN PRN Reason: Pain or Fever Stop: 05/16/23 21:55 Cyanocobalamin (Cyanocobalamin (B-12) 100 Mcg Tablet) 100 mcg PO QAM [facility] Stop: 05/17/23 08:59 Last Admin: 04/18/23 08:52 Dose: 100 mcg Furosemide (Furosemide 40 Mg/4 Ml Vial) 100 mg IV BID17 [facility] Stop: 05/17/23 08:59 Last Admin: 04/18/23 08:52 Dose: 100 mg Hydralazine HCl (Hydralazine Tab 50 Mg Tab) 50 mg PO Q8 [facility] Stop: 05/17/23 16:04 Last Admin: 04/18/23 13:17 Dose: 50 mg Levalbuterol HCl (Levalbuterol 1.25mg/0.5ml Neb) 1.25 mg NEB Q2H PRN; Protocol PRN Reason: Shortness Of Breath Or Wheezing Stop: 05/17/23 19:44 Metoprolol Succinate (Metoprolol Succ 25mg Ext Rel Tab) 25 mg PO [facility] Stop: 05/16/23 22:09 Last Admin: 04/18/23 08:57 Dose: 25 mg Nitroglycerin (Nitroglycerin 2% Ointment 30gm Tube) 1 inch EXT Q6 [facility] Stop: 05/17/23 11:59 Last Admin: 04/18/23 13:15 Dose: 1 inch Ondansetron HCl (Ondansetron Inj 2 Mg/Ml 2 Ml Vial) 4 mg IV Q6H PRN PRN Reason: Nausea Stop: 05/16/23 21:55 Polyethylene Glycol (Polyethylene (Miralax) 17 Gm Pack) 17 gm PO DAILY PRN PRN Reason: Constipation Stop: 05/16/23 21:55 Potassium Chloride (Potassium Chloride Crtab 20 Meq Tabcr) 40 meq PO [facility] Stop: 05/16/23 21:55 Last Admin: 04/18/23 08:56 Dose: 40 meq (2) Acute renal failure Acute renal failure type: unspecified Qualified Code(s): N17.9 - Acute kidney failure, unspecified (3) Anemia Anemia type: unspecified type Qualified Code(s): D64.9 - Anemia, unspecified (4) HTN (hypertension) Hypertension type: unspecified Qualified Code(s): I10 - Essential (primary) hypertension
--- NOTE | 2023-04-18 20:32 | Electrocardiogram Report ---
Test Reason : Blood Pressure : / mmHG Vent. Rate : 088 BPM Atrial Rate : 088 BPM P-R Int : 124 ms QRS Dur : 088 ms QT Int : 390 ms P-R-T Axes : 058 020 171 degrees QTc Int : 471 ms Normal sinus rhythm Possible Left atrial enlargement Left ventricular hypertrophy with repolarization abnormality Abnormal ECG When compared with ECG of 16-APR-2023 16:47, No significant change was found Confirmed by Dc Dent [id number] on 04/18/2023 8:31:58 PM Referred By: Veronika Rai Confirmed By:Dc Dent
[2023-04-18] MEDS: SODIUM BICARBONATE 650 MG TAB PO SCH ×2 (21:43→21:44)
[2023-04-19] MEDS: NITROGLYCERIN 2% OINTMENT 30GM TUBE EXT SCH ×4 (00:11→19:00)
[2023-04-19 05:17] LABS: Hematocrit (blood only) 18.3 % (42.0-52.0); Hemoglobin 6.1 g/dl (14.0-18.0)
[2023-04-19 05:45] LABS: BUN Creatinine Ratio 8.1 (10-20); Calcium 7.6 mg/dl (8.6-10.3); Creatinine Clr Calc Pharmacy 5.4 ml/min; Est GFR (African American) 4.4 ml/min; Est GFR (Non-African American) 3.8 ml/min; Magnesium 2.1 mg/dl (1.7-2.4); Phosphorus 8.6 mg/dl (2.5-4.9); Potassium 4.5 mmol/L (3.5-5.1)
[2023-04-19] MEDS: hydrALAZINE TAB 50 MG TAB PO SCH ×3 (05:47→22:53)
[2023-04-19] MEDS ORDERED: LEVALBUTEROL 1.25 MG/3 ML NEB ONE (06:15)
--- NOTE | 2023-04-19 07:22 | Hospitalist Progress Note ---
Date of Service April 19, 2023 Assessment & Plan (1) Acute on chronic combined systolic (congestive) and diastolic (congestive) heart failure: Plan: Patient is 58 y/o M with nonischemic cardiomyopathy, chronic combined CHF, CKD IV, HTN, depression, ETOH use presented to ER for progressive shortness of breath, extremity edema in setting of medication noncompliance, and abnormal outpatient labs and chest x-ray In ER patient afebrile, P: 92, R: 20, BP: 169/95, 94% on room air. No leukocytosis UA without significant signs of infection. Negative respiratory panel CXR: Bilateral lower lung predominant airspace opacities which may represent atelectasis, pneumonia, and/or aspiration. Small bilateral pleural effusions are seen. CT chest w/o contrast: Moderate bilateral pleural effusions are seen. Consolidative and groundglass opacities with lymphadenopathy are favored to represent pneumonia. In ER given 1L NSS, Rocephin, doxycycline Troponin: 30.5-->31.2 During ER course patient becomes increasingly anxious, tachypneic and SOB. Noted to have sinus tachycardia on monitor rate 112, BP 165/111, 89% on room air up to 93% on 3 L nasal cannula. Lasix 100 mg IV stat ordered as well as Nitropaste BiPAP attempted however patient was unable to tolerate. Patient was given dose of Ativan and BiPAP attempted again however patient refused as was feeling less SOB. HR improved to 90's and sats 93% on 3L EKG ordered BNP elevated at 2869 Continue supplemental O2 - currently on oxymask 6L Lasix 100 mg IV twice daily - per nephrology Continue Nitropaste Hold on antibiotics at this time as low suspicion for pneumonia, suspect this is 2/2 volume overload - TISHA on CKD, CHF Echo obtained - EF 50 to 55%. Moderate concentric LVH. Aortic valve sclerosis mild without significant aortic valvular stenosis. Moderate to severe mitral regurg. Posteriorly directed, eccentric mitral regurgitation jet. There is moderate to severe tricuspid regurg. Estimated systolic pulmonary pressure is 63 mmHg. Small circumferential pericardial effusion. There are no echocardiographic indications of cardiac tamponade. Moderate size right pleural effusion. Moderate-sized left pleural effusion. Cardiology consulted - Pt admitted w/ TISHA on CKD, volume overload, acute congestive HF. Topical nitrates for afterload reduction. Continue metoprolol and hydralazine. Amlodipine remain on hold due to volume overload. Poor prog nosis due to renal failure, heart failure with preserved ejection fraction, cardiorenal syndrome. Continue high-dose furosemide per direction of neurology. Recommend palliative care consultation. (2) Acute renal failure: Plan: Acute renal failure on CKD IV BUN:83, Cr:11 CT abdomen pelvis: No acute abnormalities are seen to explain abdominal pain per radiology read Patient with urine output in ER Monitor I's and O's Possible cardiorenal syndrome ER physician consulted on-call magistrate judge who recommended Lasix 100 mg twice daily Nephrology consulted - discussed to place catheter for dialysis, pt refused. Also discussed blood transfusion - pt refused. -he has been non compliant with medication and follow up, with episodes of TISHA and uncontrolled HTN,he is high risk of progression to ESRD>>> he is likely ESRD now. Though he is making urine,this is not adequate , he continues to be in respiratory distress requiring high Oxygen. - Does not want dialysis, wants to be comfortable. - Recommend Palliative care consult. - Continue with high dose lasix 100 mg BID and comfort measures. BMP in a.m. Comfort care - palliative medicine consulted (however not available currently during holidays) - pt is very clear that he does not want any interventions and only wants to be medically managed and keep comfortable - pt is open to talk to head scorer - and consult placed - discussed morphine prn for symptom management - pt is ok w/ morphine - discussed contacting family/ friends - says friends already saw him in the hospital. He has a brother in fci, w/hx of CVA - he does not feel I should be contacting his brother. (3) Anemia: Plan: H/H: 7.9. Hgb was13 on 08/06/2022 Denies melena, hematochezia Hemoccult stool Anemia labs - iron 31, transferrin, 190, ferritin 279, monitor H&H. 04/17 Hgb 6.8 - discussed blood transfusion several times - pt refused. At this time does not wish for transfusion. Discussed w/ RN at the bedside. Monitor H&H - hgb continues to be low <7 and pt continues to refuse any blood transfusion, wishes to be comfortable (4) HTN (hypertension): Plan: Hypertensive in ER. Started Lasix, Nitropaste as above cont. hydralazine, metoprolol Hold amlodipine (5) Depression: Plan: Prior history of depression Not currently on medications DVT Prophylaxis SCDs Follows with Dr Rai for routine care CODE: discussed code status in detail w/ RN present at the bedside - DNR/DNI. Palliative medicine consulted for symptom management and goals of care. Admission and Anticipated Discharge Date Admission Date: April 16, 2023 Subjective Pt seen in follow up of acute hypoxic resp. failure, TISHA on CKD, acute CHF, a nemia Hgb has been low and pt does not wish to get blood transfusion. Discussed again with the pt today - he does not want any blood transfusion nor dialysis. Wants to be comfortable. Discussed morphine with him and explained it would help with symptoms but it is not treatment of his condition. He completely understands that and would like some morphine to help with symptoms of shortness of breath. Also asked if he would like me to contact anyone, such as a family or friends. He had friends visiting yesterday. Says he has a brother in a [facility] who had a stroke some time ago, and he does not feel that he should be contacted by me. Then I asked him if he would like a mathematical technician/head scorer to come talk to him, and patient says that he is not very protestant, however he is not opposed to t alking to a head scorer. Consult placed. Nephrology and cardiology were both consulted and discussed with in detail. As above - pt does not with to have dialysis. Pt is sitting up in bed on suppl. O2, 6L, has conversational dyspnea. He reports feeling ok and denies any chest pain. No abd. pain. No fever,chills. Review of Systems Review of Systems: All systems reviewed & are unremarkable except as noted in Subjective Physical Exam Physical Exam: General : thin M chronically ill appearing , on oxymask 6L HEENT: NC/AT, EOMI RESP: +diffuse bilateral crackles CV: rrr, +LIVIER MSK Bilateral trace edema (improved) Neuro: alert, oriented, answers appropriately, speech fluent, no facial asymmetry, moves extremities Skin: warm, dry Results & Data Results & Data Vital Signs (Past 12 Hours) Vital Signs Temp Pulse Pulse Resp BP BP Pulse Ox 04/19/23 06:20 96 H 22 92 04/19/23 05:49 152/81 H 04/19/23 03:54 37.2 C 81 18 150/84 H 95 04/19/23 00:00 91 H 04/18/23 23:16 36.8 C 87 20 156/82 H 97 04/18/23 22:35 04/18/23 19:39 36.4 C L 87 22 165/86 H 95 O2 Del Method O2 Flow Rate 04/19/23 06:20 Oxymask 9 04/19/23 05:49 04/19/23 03:54 Nasal Cannula 6.0 04/19/23 00:00 04/18/23 23:16 Oxymask 6.0 04/18/23 22:35 Oxymask 5 04/18/23 19:39 Oxymask 6.0 Laboratory Results 04/19/23 Range/Units 04:01 Hgb 6.1 L* (14.0-18.0) g/dl Hct 18.3 L* (42.0-52.0) % Sodium 136 (136-145) mmol/L Potassium 4.5 (3.5-5.1) mmol/L Chloride 105 (98-107) mmol/L Carbon Dioxide 16 L (21-32) mmol/L Anion Gap 15 H (3-11) BUN 103 H (6-23) mg/dl Creatinine 12.79 H* D (0.6-1.4) mg/dl Est Cr Clr Drug Dosing 5.4 ml/min Est GFR ( Amer) 4.4 ml/min Est GFR (Non-Af Amer) 3.8 ml/min BUN/Creatinine Ratio 8.1 L (10-20) Glucose 113 H (70-99(Fasting)) mg/dl Calcium 7.6 L (8.6-10.3) mg/dl Phosphorus 8.6 H (2.5-4.9) mg/dl Magnesium 2.1 (1.7-2.4) mg/dl Medications Administered Current Inpatient Medications Acetaminophen (Acetaminophen 325 Mg Tab) 650 mg PO Q4H PRN PRN Reason: Pain or Fever Stop: 05/16/23 21:55 Cyanocobalamin (Cyanocobalamin (B-12) 100 Mcg Tablet) 100 mcg PO QAM [facility] Stop: 05/17/23 08:59 Last Admin: 04/18/23 08:52 Dose: 100 mcg Furosemide (Furosemide 40 Mg/4 Ml Vial) 100 mg IV BID17 [facility] Stop: 05/17/23 08:59 Last Admin: 04/18/23 17:24 Dose: 100 mg Hydralazine HCl (Hydralazine Tab 50 Mg Tab) 50 mg PO Q8 [facility] Stop: 05/17/23 16:04 Last Admin: 04/19/23 05:47 Dose: 50 mg Levalbuterol HCl (Levalbuterol 1.25mg/0.5ml Neb) 1.25 mg NEB Q2H PRN; Protocol PRN Reason: Shortness Of Breath Or Wheezing Stop: 05/17/23 19:44 Last Admin: 04/19/23 06:20 Dose: 1.25 mg Metoprolol Succinate (Metoprolol Succ 25mg Ext Rel Tab) 25 mg PO [facility] Stop: 05/16/23 22:09 Last Admin: 04/18/23 21:22 Dose: 25 mg Nitroglycerin (Nitroglycerin 2% Ointment 30gm Tube) 1 inch EXT Q6 [facility] Stop: 05/17/23 11:59 Last Admin: 04/19/23 05:47 Dose: 1 inch Ondansetron HCl (Ondansetron Inj 2 Mg/Ml 2 Ml Vial) 4 mg IV Q6H PRN PRN Reason: Nausea Stop: 05/16/23 21:55 Polyethylene Glycol (Polyethylene (Miralax) 17 Gm Pack) 17 gm PO DAILY PRN PRN Reason: Constipation Stop: 05/16/23 21:55 Potassium Chloride (Potassium Chloride Crtab 20 Meq Tabcr) 40 meq PO [facility] Stop: 05/16/23 21:55 Last Admin: 04/18/23 21:23 Dose: 40 meq Sodium Bicarbonate (Sodium Bicarbonate 650 Mg Tab) 650 mg PO TID [facility] Stop: 05/18/23 18:39 Last Admin: 04/18/23 21:44 Dose: Not Given (2) Acute renal failure Acute renal failure type: unspecified Qualified Code(s): N17.9 - Acute kidney failure, unspecified (3) Anemia Anemia type: unspecified type Qualified Code(s): D64.9 - Anemia, unspecified (4) HTN (hypertension) Hypertension type: unspecified Qualified Code(s): I10 - Essential (primary) hypertension
[2023-04-19] MEDS: FUROSEMIDE 40 MG/4 ML VIAL IV SCH ×2 (09:04→17:14)
[2023-04-19] MEDS: METOPROLOL SUCC 25MG EXT REL TAB PO SCH ×2 (09:05→21:52)
[2023-04-19] MEDS: SODIUM BICARBONATE 650 MG TAB PO SCH ×3 (09:05→21:53)
[2023-04-19] MEDS: CYANOCOBALAMIN (B-12) 100 MCG TABLET PO SCH (09:06)
[2023-04-19] MEDS: POTASSIUM CHLORIDE CRTAB 20 MEQ TABCR PO SCH ×2 (09:06→21:53)
[2023-04-19] MEDS ORDERED: MoRPHine SULFATE 2 MG/ML CARP IV STA (10:31)
[2023-04-19] MEDS ORDERED: MoRPHine SULFATE 2 MG/ML CARP IV PRN (10:31)
[2023-04-20] MEDS: NITROGLYCERIN 2% OINTMENT 30GM TUBE EXT SCH ×4 (00:37→18:09)
[2023-04-20 04:27] LABS: Hematocrit (blood only) 18.2 % (42.0-52.0); Hemoglobin 6.1 g/dl (14.0-18.0)
[2023-04-20 04:49] LABS: BUN Creatinine Ratio 8.9 (10-20); Calcium 7.5 mg/dl (8.6-10.3); Creatinine Clr Calc Pharmacy 5.4 ml/min; Est GFR (African American) 4.6 ml/min; Phosphorus 8.6 mg/dl (2.5-4.9); Potassium 4.9 mmol/L (3.5-5.1)
[2023-04-20] MEDS: hydrALAZINE TAB 50 MG TAB PO SCH ×3 (06:19→21:24)
--- NOTE | 2023-04-20 07:39 | Hospitalist Progress Note ---
Date of Service April 20, 2023 Assessment & Plan (1) Acute on chronic combined systolic (congestive) and diastolic (congestive) heart failure: Plan: Patient is 58 y/o M with nonischemic cardiomyopathy, chronic combined CHF, CKD IV, HTN, depression, ETOH use presented to ER for progressive shortness of breath, extremity edema in setting of medication noncompliance, and abnormal outpatient labs and chest x-ray In ER patient afebrile, P: 92, R: 20, BP: 169/95, 94% on room air. No leukocytosis UA without significant signs of infection. Negative respiratory panel CXR: Bilateral lower lung predominant airspace opacities which may represent atelectasis, pneumonia, and/or aspiration. Small bilateral pleural effusions are seen. CT chest w/o contrast: Moderate bilateral pleural effusions are seen. Consolidative and groundglass opacities with lymphadenopathy are favored to represent pneumonia. In ER given 1L NSS, Rocephin, doxycycline Troponin: 30.5-->31.2 During ER course patient becomes increasingly anxious, tachypneic and SOB. Noted to have sinus tachycardia on monitor rate 112, BP 165/111, 89% on room air up to 93% on 3 L nasal cannula. Lasix 100 mg IV stat ordered as well as Nitropaste BiPAP attempted however patient was unable to tolerate. Patient was given dose of Ativan and BiPAP attempted again however patient refused as was feeling less SOB. HR improved to 90's and sats 93% on 3L EKG ordered BNP elevated at 2869 Continue supplemental O2 - currently on oxymask 6L Lasix 100 mg IV twice daily - per nephrology -> will switch to PO torsemide 100 bid Continue Nitropaste Hold on antibiotics at this time as low suspicion for pneumonia, suspect this is 2/2 volume overload - TISHA on CKD, CHF Echo obtained - EF 50 to 55%. Moderate concentric LVH. Aortic valve sclerosis mild without significant aortic valvular stenosis. Moderate to severe mitral regurg. Posteriorly directed, eccentric mitral regurgitation jet. There is moderate to severe tricuspid regurg. Estimated systolic pulmonary pressure is 63 mmHg. Small circumferential pericardial effusion. There are no echocardiographic indications of cardiac tamponade. Moderate size right pleural effusion. Moderate-sized left pleural effusion. Cardiology consulted - Pt admitted w/ TISHA on CKD, volume overload, acute congestive HF. Topical nitrates for afterload reduction. Continue metoprolol and hydralazine. Amlodipine remain on hold due to volume overload. Poor prognosis due to renal failure, heart failure with preserved ejection fraction, cardiorenal syndrome. Continue high-dose furosemide per direction of neurology. Recommend palliative care consultation. (2) Acute renal failure: Plan: Acute renal failure on CKD IV BUN:83, Cr:11 CT abdomen pelvis: No acute abnormalities are seen to explain abdominal pain per radiology read Patient with urine output in ER Monitor I's and O's Possible cardiorenal syndrome ER physician consulted on-call music instructor who recommended Lasix 100 mg twice daily Nephrology consulted - discussed to place catheter for dialysis, pt refused. Also discussed blood transfusion - pt refused. -he has been non compliant with medication and follow up, with episodes of TISHA and uncontrolled HTN,he is high risk of progression to ESRD>>> he is likely ESRD now. Though he is making urine,this is not adequate , he continues to be in respiratory distress requiring high Oxygen. - Does not want dialysis, wants to be comfortable. - Recommend Palliative care consult. - Continue with high dose lasix 100 mg BID and comfort measures. BMP in a.m. Comfort care - palliative medicine and pastoral services consulted - pt is very clear that he does not want any interventions and only wants to be medically managed and keep comfortable - cont. symptom management per pall. med. - discussed contacting family/ friends - says friends already saw him in the hospital. He has a brother in long-term, w/hx of CVA - he does not feel I should be contacting his brother. - friend Tessy present at the bedside today (04/20)- and pt was ok to discuss everything with her at the bedside (3) Anemia: Plan: H/H: 7.9. Hgb was13 on 08/06/2022 Denies melena, hematochezia Hemoccult stool Anemia labs - iron 31, transferrin, 190, ferritin 279, monitor H&H. 04/17 Hgb 6.8 - discussed blood transfusion several times - pt refused. At this time does not wish for transfusion. Discussed w/ RN at the bedside. Monitor H&H - hgb continues to be low <7 and pt continues to refuse any blood transfusion, wishes to be comfortable (4) HTN (hypertension): Plan: Hypertensive in ER. Started Lasix, Nitropaste as above cont. hydralazine, metoprolol Hold amlodipine (5) Depression: Plan: Prior history of depression Not currently on medications DVT Prophylaxis SCDs Follows with Dr Rai for routine care CODE: DNR/ DNI - comfort care Admission and Anticipated Discharge Date Admission Date: April 16, 2023 Subjective Pt seen in follow up of acute hypoxic resp. failure, TISHA on CKD, acute CHF, anemia Nephrology and cardiology were both consulted and discussed with in detail. Pt does not wish dialysis or blood transfusion and only wants to be comfortable. Pt made comfort care. He met with merchandise shopper yesterday and very much enjoyed conversation with him, he is hoping to talk to him again. Palliative medicine also consulted and discussed with. Pt is sitting up in bed on suppl. O2, 6L, has conversational dyspnea. He reports feeling ok and denies any chest pain. No abd. pain. No fever,chills. Review of Systems Review of Systems: All systems reviewed & are unremarkable except as noted in Subjective Physical Exam Physical Exam: General : thin M chronically ill appearing , on oxymask 6L HEENT: NC/AT, EOMI RESP: +diffuse bilateral crackles CV: rrr, +LIVIER MSK Bilateral trace edema (improved) Neuro: alert, oriented, answers appropriately, speech fluent, no facial asymmetry, moves extremities Skin: warm, dry Results & Data Results & Data Vital Signs (Past 12 Hours) Vital Signs Temp Pulse Pulse Resp BP Pulse Ox O2 Del Method 04/20/23 06:17 85 165/87 H 04/20/23 04:00 36.7 C 80 20 167/88 H 96 Nasal Cannula 04/20/23 00:31 36.8 C 82 19 162/83 H 96 Nasal Cannula 04/19/23 22:52 36.7 C 76 22 170/90 H 97 Nasal Cannula 04/19/23 22:45 78 04/19/23 20:45 Nasal Cannula 04/19/23 19:55 36.5 C 82 24 163/86 H 98 Nasal Cannula O2 Flow Rate 04/20/23 06:17 04/20/23 04:00 7 04/20/23 00:31 6 04/19/23 22:52 6 04/19/23 22:45 04/19/23 20:45 6 04/19/23 19:55 7 Laboratory Results 04/20/23 Range/Units 03:48 Hgb 6.1 L* (14.0-18.0) g/dl Hct 18.2 L* (42.0-52.0) % Sodium 136 (136-145) mmol/L Potassium 4.9 (3.5-5.1) mmol/L Chloride 104 (98-107) mmol/L Carbon Dioxide 16 L (21-32) mmol/L Anion Gap 16 H (3-11) BUN 109 H (6-23) mg/dl Creatinine 12.21 H* D (0.6-1.4) mg/dl Est Cr Clr Drug Dosing 5.4 ml/min Est GFR ( Amer) 4.6 ml/min Est GFR (Non-Af Amer) 4.0 ml/min BUN/Creatinine Ratio 8.9 L (10-20) Glucose 140 H (70-99(Fasting)) mg/dl Calcium 7.5 L (8.6-10.3) mg/dl Phosphorus 8.6 H (2.5-4.9) mg/dl Magnesium 2.0 (1.7-2.4) mg/dl Medications Administered Current Inpatient Medications Acetaminophen (Acetaminophen 325 Mg Tab) 650 mg PO Q4H PRN PRN Reason: Pain or Fever Stop: 05/16/23 21:55 Cyanocobalamin (Cyanocobalamin (B-12) 100 Mcg Tablet) 100 mcg PO QAM [facility] Stop: 05/17/23 08:59 Last Admin: 04/19/23 09:06 Dose: 100 mcg Furosemide (Furosemide 40 Mg/4 Ml Vial) 100 mg IV BID17 [facility] Stop: 05/17/23 08:59 Last Admin: 04/19/23 17:14 Dose: 100 mg Hydralazine HCl (Hydralazine Tab 50 Mg Tab) 50 mg PO Q8 [facility] Stop: 05/17/23 16:04 Last Admin: 04/20/23 06:19 Dose: 50 mg Levalbuterol HCl (Levalbuterol 1.25mg/0.5ml Neb) 1.25 mg NEB Q2H PRN; Protocol PRN Reason: Shortness Of Breath Or Wheezing Stop: 05/17/23 19:44 Last Admin: 04/19/23 06:20 Dose: 1.25 mg Metoprolol Succinate (Metoprolol Succ 25mg Ext Rel Tab) 25 mg PO AMHS [facility] Stop: 05/16/23 22:09 Last Admin: 04/19/23 21:52 Dose: 25 mg Morphine Sulfate (Morphine Sulfate 2 Mg/Ml Carp) 1 mg IV Q4H PRN PRN Reason: Shortness Of Breath Stop: 05/03/23 10:30 Nitroglycerin (Nitroglycerin 2% Ointment 30gm Tube) 1 inch EXT Q6 [facility] Stop: 05/17/23 11:59 Last Admin: 04/20/23 06:18 Dose: 1 inch Ondansetron HCl (Ondansetron Inj 2 Mg/Ml 2 Ml Vial) 4 mg IV Q6H PRN PRN Reason: Nausea Stop: 05/16/23 21:55 Polyethylene Glycol (Polyethylene (Miralax) 17 Gm Pack) 17 gm PO DAILY PRN PRN Reason: Constipation Stop: 05/16/23 21:55 Potassium Chloride (Potassium Chloride Crtab 20 Meq Tabcr) 40 meq PO [facility] Stop: 05/16/23 21:55 Last Admin: 04/19/23 21:53 Dose: 40 meq Sodium Bicarbonate (Sodium Bicarbonate 650 Mg Tab) 650 mg PO TID [facility] Stop: 05/18/23 18:39 Last Admin: 04/19/23 21:53 Dose: 650 mg (2) Acute renal failure Acute renal failure type: unspecified Qualified Code(s): N17.9 - Acute kidney failure, unspecified (3) Anemia Anemia type: unspecified type Qualified Code(s): D64.9 - Anemia, unspecified (4) HTN (hypertension) Hypertension type: unspecified Qualified Code(s): I10 - Essential (primary) hypertension
[2023-04-20] MEDS: SODIUM BICARBONATE 650 MG TAB PO SCH ×3 (08:19→19:37)
[2023-04-20] MEDS: METOPROLOL SUCC 25MG EXT REL TAB PO SCH ×2 (08:20→19:37)
[2023-04-20] MEDS: CYANOCOBALAMIN (B-12) 100 MCG TABLET PO SCH (08:20)
[2023-04-20] MEDS: POTASSIUM CHLORIDE CRTAB 20 MEQ TABCR PO SCH (08:20)
[2023-04-20] MEDS: FUROSEMIDE 40 MG/4 ML VIAL IV SCH ×2 (08:21→17:42)
[2023-04-20] MEDS ORDERED: MoRPHine SULFATE 2 MG/ML CARP IV STA (11:14)
--- NOTE | 2023-04-20 11:25 | Palliative Care Consultation ---
Date of Consultation April 20, 2023 Assessment & Plan (1) Dyspnea and respiratory abnormalities: Dilaudid PO and IV for breakthru or uncontrolled sx if frequent dosing needed will move to infusion (2) Anxiety: Ativan IV for anxiety and insomnia (3) Insomnia: Insomnia type: due to medical condition Qualified Code(s): G47.01 - Insomnia due to medical condition (4) Weakness generalized: (5) Advanced care planning/counseling discussion: ACP discussion face to face with pt at bedside x 55min I met with pt and had a long discussion. no family/support were present. He is very clear that he wants only a focus on comfort care and no escalation. He does not want labs, imaging or HD. He feels he is suffering greatly and his disease he knows is terminal. He had many questions about prognosis as far as anticipated survival. We reviewed likely weeks to a month or so though it can be shorter if he has acute worsening or becomes unable to tolerate or take other heart meds. Pt asked about what to expect as terminal cardiorenal failure progresses: I advised patients wih renal failure may live anywhere from weeks to few months, depending on the amount of kidney function they have left and their overall medical condition.In hospitalized patients who did not choose or stopped dialysis,confusion/agitation was reported to affect 70% of patients, followed by pain (55%), dyspnea (48%), nausea (36%), twitching/seizures (27%), anxiety/psychological distress (27%), pruritus (24%), and peripheral edema (21%).Advised thatmean survival is further affected by advanced age, multiple comorbidities+frailty. I encouraged pt to connect with those he may want to visit or speak with, as periods of lucidity will decline as ESRD progresses along this EOL trajectory. I addressedthe likelihood of progressive encephalopathy. Reassuredpatient that symptoms can be adequately treatedbut drugs with sedating side effects may be necessary to ensure comfort.I also discusseddiet: provide pt witha liberal, pleasure-based dietto focus on comfort and QOL, acknowledging that this mayworsen symptoms from edema. (Sources: - https://www.myp cnow.org/fast-fact/pnoawocnjqutdzg-iz-ariygepm-receiving-dialysis/ -Mayra LANDEROS. End-of-life care preferences and needs: perceptions of patients with chronic kidney disease. Clinical Journal of the [place] [employer] of Nephrology: CJASN. 2010;5:195-204. -Rahat KF, Maxime B, Vimal V and Felicity JIMENEZ. Employment among Patients Starting Dialysis in the [place]. Clinical Journal of the [place] [employer] Nephrology: CJASN. 2018. -Giovanni NIEVES, Haresh MJ, Oswaldo DM. Practical considerations in dialysis withdrawal. To have that option is a blessing. MONICA. 2003; 289:0435-6873. -Mayra LANDEROS and Sharon GUARDADO. Impact of pain and symptom burden on the health- related quality of life of hemodialysis patients. Journal of Pain and Symptom Management. 2010;39:477-85.) (6) Palliative care by specialist: Met with pt/family. Provided overview of Palliative Medicine, a subspecialty that provides specialized medical care for people living with a serious illness by offering a focus on quality of life. Palliative Medicine is often conflated with hospice: I advised patient/family that Palliative and hospice can be partners but we are not the same. It is important to understand the difference so that we may be informed, and not afraid. Palliative Medicine works to improve QOL through reduction of symptom burden/more control over their illness, for both the patient and family. Palliative medicine clinicians are board certified, specially-trained and another member of the patient's medical care team. We often provide an extra layer of support because our care is based on the needs of the patient, not the prognosis; as such, it's appropriate at any age/advancing stage of a serious illness and can be provided along with curative treatment. Palliative Medicine clinicians are also trained in advanced communication methodologies, to facilitate complex discussions about advanced illness planning, which are needed to help assure that the treatment choices match the patient's goals, aka delivering Goal Concordant care. Finally, we discussed that hospice is a visiting nurse service that focuses on care delivered at the very end of life for patients with terminal illness, with life expectancy less than 6 month. (7) Acute renal failure superimposed on stage 4 chronic kidney disease: Acute renal failure type: unspecified Qualified Code(s): N17.9 - Acute kidney failure, unspecified; N18.4 - Chronic kidney disease, stage 4 (severe) (8) Acute on chronic heart failure with preserved ejection fraction (HFpEF): (9) Acute on chronic combined systolic (congestive) and diastolic (congestive) heart failure: (10) Alcohol abuse: Plan * I have modified opioids for comfort, stopped morphine as ESRD cannot metabolize it (Avoid use of morphine in this patient with advanced renal disease/nephropathy. Pt cannot have morphine because of the end stage renal failure - it is recommended that morphine (and codeine) are avoided in renal failure/dialysis patients, because when renal failure patients take morphine, their toxic metabolites, which are renally excreted, accumulate and can quickly cause over-opiation. Over opiation would be easily done with the use of a medication that pt cannot properly excrete) and swapped it for Dilaudid both PO and IV as back up in case of severe symptom needs. Added Ativan IV for insomnia and anxiety -he has a moderate to hi opioid threshold. I do not believe he has long. Likely a few weeks - a month or so. * Recc reducing IV Lasix dose - Dr Meyer to follow up with nephro * I will see him tomorrow in follow up. I am in clinic on and available by pager but not in hospital. I will be off this Wednesday, but again am pageable for urgent needs. I will not have the ability to write urgent orders but at will be home towards the evening Wednesday. * Updated primary team nursing, care mgt and cardiology. * Comfort care orders written Thank you for allowing us to participate in the ongoing care of this patient. Please don't hesitate to call or page with any additional concerns. Dr. Pauly Zabala [facility] Director, Palliative Care History of Present Illness Reason for Consultation: [facility] Attending Physician: Simone Meyer MD History of Present Illness Anil is a 58 yo male w/nonischemic cardiomyopathy, chronic combined CHF, CKD IV, HTN, depression, ETOH use who came to [facility] w/complaints of progressive dyspnea, extremity edema in setting of medication noncompliance, and abnormal outpatient labs and chest x-ray he has worsening cardiorenal he does not want HD he wants comfort care and to be assured he will not suffer he tells me he can feel he does not have long left to live and just hopes the time he has can be more comfortable and not filled with anxiety and pain he is struggling to breathe and using accessory muscles at time of my visit he is diaphoretic and distressed Allergies Allergy/AdvReac Type Severity Reaction Status Date / Time No Known Allergies Allergy Unknown Verified 04/16/23 19:50 Home Medications Medication Instructions Recorded Confirmed Type amlodipine 10 mg tablet 10 mg PO QAM 04/16/23 04/16/23 History cyanocobalamin (vitamin B-12) 100 100 mcg PO QAM 04/16/23 04/16/23 History mcg tablet furosemide 40 mg tablet 40 mg PO BID 04/16/23 04/16/23 History hydralazine 25 mg tablet 25 mg PO TID 04/16/23 04/16/23 History metoprolol succinate 25 mg 25 mg PO AMHS 04/16/23 04/16/23 History tablet,extended release 24 hr potassium chloride 20 mEq 40 meq PO AMHS 04/16/23 04/16/23 History tablet,extended release(part/cryst) (Safia Rosales) Patient History Medical History Tricuspid regurgitation Chronic combined systolic and diastolic CHF (congestive heart failure) CKD (chronic kidney disease) stage 4, GFR 15-29 ml/min PRES (posterior reversible encephalopathy syndrome) Dyslipidemia Suicide attempt Depression Alcohol abuse HTN (hypertension) Surgical History No significant past surgical history Family History Mother Hypertension Social History Smoking Status: Former smoker Second Hand Exposure: No; Do You Dip or Chew Tobacco: No; Tobacco Cessation Education Requested by Patient: No Hx Alcohol Use: Yes Alcohol type: beer Hx Substance Use: No Preferred Language: Montserratian Communication Ability: Effective Ekg Tech Required: No Beliefs That Will Affect Care: Spiritual marital status: Single Current Living Situation: Alone Current Living Situation Comment: Lives alone while brother is at snf How many Children do You have: 0 Other Information That Helps Us Care for You: No Feels Safe at Home: Yes Safety Concerns: Feels Safe At This Time Assistive Devices: None Review of Systems Review of Systems: All systems reviewed & are unremarkable except as noted in Subjective Physical Exam Constitutional: + acute distress, + ill appearing, + thi n, + frail appearing, + disheveled, + in distress, + diaphoretic, + malnourished and + underweight ENMT: Mouth: + dry oral mucous membranes, + dentition abnormality, + dental caries, + edentulous, + poor dentition, + chipped teeth and + loose teeth Neck: trachea midline, no thyromegaly Respiratory: + respiratory distress, + labored breath ing, + uses accessory muscles, + dullness to percussion, + abnormal respiratory pattern, + prolonged expiratory phase and + nasal flaring Auscultation: + diminished lung sounds and + crackles Cardiovascular: Rate/Rhythm: + tachycardic Extremities: + pedal edema Gastrointestinal (Abdomen): Inspection/Auscultation: normal bowel sounds, + scaphoid and + visible pulsation Musculoskeletal: gen weakness Skin: + turgor decreased, + pallor and + hair thinning Neurologic: AAOx3 Psychiatric: anxious, uncomfortable Results & Data Vital Signs (Past 12 Hours) Vital Signs Temp Pulse Pulse Resp BP BP Pulse Ox 04/20/23 10:00 04/20/23 07:54 74 04/20/23 07:26 36.4 C L 83 20 150/82 H 96 04/20/23 06:17 85 165/87 H 04/20/23 04:00 36.7 C 80 20 167/88 H 96 04/20/23 00:31 36.8 C 82 19 162/83 H 96 O2 Del Method O2 Flow Rate 04/20/23 10:00 Nasal Cannula 04/20/23 07:54 04/20/23 07:26 Nasal Cannula 6 04/20/23 06:17 04/20/23 04:00 Nasal Cannula 7 04/20/23 00:31 Nasal Cannula 6 Laboratory Results data reviewed Diagnostic Findings data reviewed PG Care Time/CCT Total # of Minutes Spent Total Time Spent with Patient: Total time spent is greater than 50% in coordination of care (as documented) at patient's floor/unit and/or counseling patient: I spent 130 minutes overall addressing this complex case: 20 min in medical data review/discussion with referring provider(s) and/or preparation for the visit 20 min in direct interaction with the patient/exam 55 min in Advance Care Planning/Goals of Care discussions as detailed above in note (must be >16min) 15 min in subsequent review and synthesis of assessment and plan 20 min communicating with other providers regarding the patient's case: Prolonged Care Time Prolonged Care Time: Yes Advanced Care Planning 93671 Advanced Care Planning 30 Min 91576 Advanced Care Planning Additional 30 [place] [address] IN/OBS CONSULT LVL 5,80M Patient Type New History Comprehensive Exam Comprehensive Medical Decision Making High Complexity Diagnoses Dyspnea and respiratory abnormalities R06.00; R06.89 Anxiety F41.9 Insomnia due to medical condition G47.01 Insomnia type: due to medical condition Weakness generalized R53.1 Advanced care planning/counseling discussion Z71.89 Palliative care by specialist Z51.5 Acute renal failure superimposed on stage 4 chronic kidney disease, unspecified acute renal failure type N17.9; N18.4 Acute renal failure type: unspecified Acute on chronic heart failure with preserved ejection fraction (HFpEF) I50.33 Acute on chronic combined systolic (congestive) and diastolic (congestive) heart failure I50.43 Alcohol abuse F10.10 Additional Codes Advanced Care Planning - 51923 Advanced Care Planning 30 Min: 65733 Advanced Care Planning 30 Min ([id number]) Advanced Care Planning - [id number] Advanced Care Planning Additional 30 Min: 57413 Advanced Care Planning Additional 30 Min ([id number]) Prolonged Care Time - Prolonged Care Time: Yes ([id number])
[2023-04-20] MEDS ORDERED: MoRPHine SULFATE 2 MG/ML CARP IV PRN (12:55)
[2023-04-20] MEDS ORDERED: HYDROmorphone INJ 0.5 MG/0.5 ML SYR IV PRN (15:10)
[2023-04-20] MEDS ORDERED: LORazepam 0.5 MG in SYRINGE 0.25 ML IV PRN (15:10)
[2023-04-20] MEDS ORDERED: haloperidoL 1 MG TAB PO PRN (15:10)
[2023-04-20] MEDS ORDERED: GLYCOPYRROLATE 0.2 MG/ML VIAL IV PRN (15:10)
[2023-04-20] MEDS ORDERED: HYDROmorphone HCL 2 MG TAB PO PRN (15:14)
[2023-04-20] MEDS ORDERED: LORazepam 1 MG in SYRINGE 0.5 ML IV PRN (15:16)
[2023-04-20] MEDS ORDERED: LEVALBUTEROL 1.25 MG/3 ML NEB ONE ×2 (16:11→20:05)
[2023-04-20] MEDS ORDERED: PROMETHAZINE HCL 12.5 MG in SODIUM CHLORIDE 0.9% 50 ML IV PRN (20:48)
[2023-04-21] MEDS: NITROGLYCERIN 2% OINTMENT 30GM TUBE EXT SCH ×5 (01:07→23:38)
[2023-04-21] MEDS ORDERED: PALONOSETRON 0.25 MG in SYRINGE 0 ML IV PRN (01:53)
[2023-04-21] MEDS ORDERED: LORazepam 0.5 MG in SYRINGE 0.25 ML IV PRN (01:55)
[2023-04-21] MEDS: hydrALAZINE TAB 50 MG TAB PO SCH ×3 (06:21→21:25)
[2023-04-21] MEDS: METOPROLOL SUCC 25MG EXT REL TAB PO SCH ×2 (08:31→20:01)
[2023-04-21] MEDS: SODIUM BICARBONATE 650 MG TAB PO SCH ×3 (08:31→20:01)
--- NOTE | 2023-04-21 08:49 | Hospitalist Progress Note ---
Date of Service April 21, 2023 Assessment & Plan (1) Acute on chronic combined systolic (congestive) and diastolic (congestive) heart failure: Plan: Patient is 58 y/o M with nonischemic cardiomyopathy, chronic combined CHF, CKD IV, HTN, depression, ETOH use presented to ER for progressive shortness of breath, extremity edema in setting of medication noncompliance, and abnormal outpatient labs and chest x-ray In ER patient afebrile, P: 92, R: 20, BP: 169/95, 94% on room air. No leukocytosis UA without significant signs of infection. Negative respiratory panel CXR: Bilateral lower lung predominant airspace opacities which may represent atelectasis, pneumonia, and/or aspiration. Small bilateral pleural effusions are seen. CT chest w/o contrast: Moderate bilateral pleural effusions are seen. Consolidative and groundglass opacities with lymphadenopathy are favored to represent pneumonia. In ER given 1L NSS, Rocephin, doxycycline Troponin: 30.5-->31.2 During ER course patient becomes increasingly anxious, tachypneic and SOB. Noted to have sinus tachycardia on monitor rate 112, BP 165/111, 89% on room air up to 93% on 3 L nasal cannula. Lasix 100 mg IV stat ordered as well as Nitropaste BiPAP attempted however patient was unable to tolerate. Patient was given dose of Ativan and BiPAP attempted again however patient refused as was feeling less SOB. HR improved to 90's and sats 93% on 3L EKG ordered BNP elevated at 2869 Continue supplemental O2 - currently on oxymask 6L Lasix 100 mg IV twice daily - per nephrology -> now switch to PO torsemide 100 bid Continue Nitropaste Hold on antibiotics at this time as low suspicion for pneumonia, suspect this is 2/2 volume overload - TISHA on CKD, CHF Echo obtained - EF 50 to 55%. Moderate concentric LVH. Aortic valve sclerosis mild without significant aortic valvular stenosis. Moderate to severe mitral regurg. Posteriorly directed, eccentric mitral regurgitation jet. There is moderate to severe tricuspid regurg. Estimated systolic pulmonary pressure is 63 mmHg. Small circumferential pericardial effusion. There are no echocardiographic indications of cardiac tamponade. Moderate size right pleural effusion. Moderate-sized left pleural effusion. Cardiology consulted - Pt admitted w/ TISHA on CKD, volume overload, acute congestive HF. Topical nitrates for afterload reduction. Continue metoprolol and hydralazine. Amlodipine remain on hold due to volume overload. Poor prognosis due to renal failure, heart failure with preserved ejection fraction, cardiorenal syndrome. Continue high-dose furosemide per direction of neurology. Recommend palliative care consultation. (2) Acute renal failure: Plan: Acute renal failure on CKD IV BUN:83, Cr:11 CT abdomen pelvis: No acute abnormalities are seen to explain abdominal pain per radiology read Patient with urine output in ER Monitor I's and O's Possible cardiorenal syndrome ER physician consulted on-call market risk analyst who recommended Lasix 100 mg twice daily Nephrology consulted - discussed to place catheter for dialysis, pt refused. Also discussed blood transfusion - pt refused. -he has been non compliant with medication and follow up, with episodes of TISHA and uncontrolled HTN,he is high risk of progression to ESRD>>> he is likely ESRD now. Though he is making urine,this is not adequate , he continues to be in respiratory distress requiring high Oxygen. - Does not want dialysis, wants to be comfortable. - Recommend Palliative care consult. - Continue with diuretics and comfort measures. Comfort care - palliative medicine and pastoral services consulted - pt is very clear that he does not want any interventions and only wants to be medically managed and keep comfortable - cont. symptom management per pall. med. - friends visiting at the bedside daily, plan to hopefully bring in his brother who resides in [facility] (3) Anemia: Plan: H/H: 7.9. Hgb was13 on 08/06/2022 Denies melena, hematochezia Hemoccult stool Anemia labs - iron 31, transferrin, 190, ferritin 279, monitor H&H. 04/17 Hgb 6.8 - discussed blood transfusion several times - pt refused. At this time does not wish for transfusion. Discussed w/ RN at the bedside. Monitor H&H - hgb continues to be low <7 and pt continues to refuse any blood transfusion, wishes to be comfortable (4) HTN (hypertension): Plan: Hypertensive in ER. Started Lasix, Nitropaste as above cont. hydralazine, metoprolol Hold amlodipine (5) Depression: Plan: Prior history of depression Not currently on medications DVT Prophylaxis SCDs Follows with Dr Rai for routine care CODE: DNR/ DNI - comfort care Admission and Anticipated Discharge Date Admission Date: April 16, 2023 Subjective Pt seen in follow up of acute hypoxic resp. failure, TISHA on CKD, acute CHF, anemia Nephrology and cardiology were both consulted and discussed with in detail. Pt does not wish dialysis or blood transfusion and only wants to be comfortable. Pt made comfort care. He met with reduction plant supervisor and very much enjoyed conversation with him, he is hoping to talk to him again. Palliative medicine also consulted and discussed with. Hopefully he will be able to meet with his brother juana (brother resides in [facility]). Pt is sitting up in bed on suppl. O2, 6L, has conversational dyspnea. He reports feeling ok and denies any chest pain. No abd. pain. No fever,chills. Review of Systems Review of Systems: All systems reviewed & are unremarkable except as noted in Subjective Physical Exam Physical Exam: General : thin M chronically ill appearing , on oxymask 6L HEENT: NC/AT, EOMI RESP: +diffuse bilateral crackles CV: rrr, +LIVIER MSK Bilateral trace edema (improved) Neuro: alert, oriented, answers appropriately, speech fluent, no facial asymmetry, moves extremities Skin: warm, dry Results & Data Results & Data Vital Signs (Past 12 Hours) Vital Signs Temp Pulse Resp BP BP Pulse Ox O2 Del Method 04/21/23 07:28 36.7 C 85 21 160/95 H 95 Nasal Cannula 04/21/23 06:19 85 169/89 H O2 Flow Rate 04/21/23 07:28 6 04/21/23 06:19 Medications Administered Current Inpatient Medications Acetaminophen (Acetaminophen 325 Mg Tab) 650 mg PO Q4H PRN PRN Reason: Pain or Fever Stop: 05/16/23 21:55 Glycopyrrolate (Glycopyrrolate 0.2 Mg/Ml Vial) 0.4 mg IV Q4H PRN PRN Reason: Secretions or Pulm Congestion Stop: 05/20/23 15:09 Haloperidol (Haloperidol 1 Mg Tab) 1 mg PO Q4H PRN PRN Reason: restless, delirium Stop: 05/20/23 15:09 Hydralazine HCl (Hydralazine Tab 50 Mg Tab) 50 mg PO Q8 DANIEL Stop: 05/17/23 16:04 Last Admin: 04/21/23 06:21 Dose: 50 mg Hydromorphone HCl (Hydromorphone Inj 0.5 Mg/0.5 Ml Syr) 0.5 mg IV Q1H PRN PRN Reason: sev air hunger Stop: 05/04/23 15:09 Last Admin: 04/20/23 19:24 Dose: 0.5 mg Hydromorphone HCl (Hydromorphone Hcl 2 Mg Tab) 2 mg PO Q3H PRN PRN Reason: pain or dyspnea Stop: 05/04/23 15:14 Last Admin: 04/20/23 17:21 Dose: 2 mg Promethazine HCl 12.5 mg/ (Sodium Chloride) 50.5 mls @ 202 mls/hr IV Q6H PRN PRN Reason: Nausea And Vomiting Stop: 05/20/23 20:47 Last Infusion: 04/20/23 21:22 Dose: Infused Palonosetron 0.25 mg/ Syringe 5 mls @ 10 mls/min IV Q24H PRN PRN Reason: nausea and vomiting Stop: 05/21/23 01:52 Lorazepam 0.5 mg/ Syringe 0.5 mls @ 2 mls/min IV Q3H PRN; Protocol PRN Reason: insomnia,spasm,agitation,n/v Stop: 05/20/23 15:09 Lorazepam 1 mg/ Syringe 1 mls @ 2 mls/min IV Q4H PRN PRN Reason: panic insomnia nausea/vomiting Stop: 05/20/23 15:15 Levalbuterol HCl (Levalbuterol 1.25mg/0.5ml Neb) 1.25 mg NEB Q2H PRN; Protocol PRN Reason: Shortness Of Breath Or Wheezing Stop: 05/17/23 19:44 Last Admin: 04/19/23 06:20 Dose: 1.25 mg Metoprolol Succinate (Metoprolol Succ 25mg Ext Rel Tab) 25 mg PO AMHS [facility] Stop: 05/16/23 22:09 Last Admin: 04/21/23 08:31 Dose: 25 mg Nitroglycerin (Nitroglycerin 2% Ointment 30gm Tube) 1 inch EXT Q6 [facility] Stop: 05/17/23 11:59 Last Admin: 04/21/23 06:20 Dose: 1 inch Polyethylene Glycol (Polyethylene (Miralax) 17 Gm Pack) 17 gm PO DAILY PRN PRN Reason: Constipation Stop: 05/16/23 21:55 Sodium Bicarbonate (Sodium Bicarbonate 650 Mg Tab) 650 mg PO TID [facility] Stop: 05/20/23 20:59 Last Admin: 04/21/23 08:31 Dose: 650 mg Torsemide (Torsemide 100 Mg Tab) 100 mg PO BID17 [facility] Stop: 05/21/23 08:59 (2) Acute renal failure Acute renal failure type: unspecified Qualified Code(s): N17.9 - Acute kidney failure, unspecified (3) Anemia Anemia type: unspecified type Qualified Code(s): D64.9 - Anemia, unspecified (4) HTN (hypertension) Hypertension type: unspecified Qualified Code(s): I10 - Essential (primary) hypertension
[2023-04-21] MEDS: TORSEMIDE 100 MG TAB PO SCH ×2 (09:21→17:03)
--- NOTE | 2023-04-21 10:45 | Palliative Care Progress Note ---
Date of Service April 21, 2023 Assessment & Plan (1) Dyspnea and respiratory abnormalities: (2) Anxiety: (3) Insomnia: (4) Weakness generalized: (5) Palliative care by specialist: (6) Advanced care planning/counseling discussion: Plan: Met with pt and long time friend, Angelita x 30min. Pt friend Angelita shares the following: pt and his brother come from very simple and humble background, "never had much of anything and we {neighbors/friends} always helped as much as we can," and she notes they have all spoken with pt to help allay worries and fears, for ex Tessy is taking care of his utilities/phone etc and Angelita has agreed to look after his beloved cat, and will assume ownership of the cat when pt dies. Angelita reaffirms pt and brother only ever had each other, no family to speak of and always lived with basics, no extras. She states he is always a kind soul and helped others when he could. CM working with [facility] to see if they can arrange for pt to come there under LTC to be with his brother. When initially asked the [facility] advised they had no LTC beds (7) Acute renal failure superimposed on stage 4 chronic kidney disease: (8) Mitral regurgitation: (9) Acute on chronic heart failure with preserved ejection fraction (HFpEF): (10) Acute on chronic combined systolic (congestive) and diastolic (congestive) heart failure: Plan * Met with pt and his long time friend Angelita at bedside. Updated re his brother coming to visit. He is feeling happy to hear this news * Reviewed nausea meds we have available - nausea may be increasing as cardiorenal worsens, will give a dose now/nursing aware * Encouraged to use Ativan for anxiety and insomnia - also may help with nausea * CM working on placement and has asked [facility] to se if they can make a bed for pt to be near or with his brother through [facility]. * Pt friend Angelita shares the following: pt and his brother come from very simple and humble background, "never had much of anything and we {neighbors/friends} always helped as much as we can," and she notes they have all spoken with pt to help allay worries and fears, for ashley Still is taking care of his utilities/phone etc and Angelita has agreed to look after his beloved cat, and will assume ownership of the cat when pt dies. Angelita reaffirms pt and brother only ever had each other, no family to speak of and always lived with basics, no extras. She states he is always a kind soul and helped others when he could. Thank you for allowing us to participate in the ongoing care of this patient. Please don't hesitate to call or page with any additional concerns. Dr. 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 prefers pepsi products and is dismayed we offer [employer] products Review of Systems Review of Systems: All systems reviewed & are unremarkable except as noted in Subjective Physical Exam Constitutional: + ill appearing (less distress than yest erday, appears a little more comfortable, still SOB), + thin, + frail appearing, + disheveled, + diaphoretic and + malnourished ENMT: Mouth: + dry oral mucous membranes, + dentition abnormality, + dental caries, + edentulous, + poor dentition, + chipped teeth and + loose teeth Neck: trachea midline, no thyromegaly Respiratory: + respiratory distress, + labored breath ing, + uses accessory muscles, + dullness to percussion, + abnormal respiratory pattern and + prolonged expiratory phase Auscultation: + diminished lung sounds and + crackles Cardiovascular: Rate/Rhythm: + tachycardic Extremities: + pedal edema Gastrointestinal (Abdomen): Inspection/Auscultation: normal bowel sounds, + scaphoid and + visible pulsation Musculoskeletal: gen weakness Skin: + turgor decreased, + pallor and + hair thinning Neurologic: AAOx3 Psychiatric: anxious, uncomfortable Results & Data Vital Signs (Past 12 Hours) Vital Signs Temp Pulse Resp BP BP Pulse Ox O2 Del Method 04/21/23 08:00 Nasal Cannula 04/21/23 07:28 36.7 C 85 21 160/95 H 95 Nasal Cannula 04/21/23 06:19 85 169/89 H O2 Flow Rate 04/21/23 08:00 6 04/21/23 07:28 6 04/21/23 06:19 Laboratory Results 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, no new data Diagnostic Findings 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, no new data PG Care Time/CCT Total # of Minutes Spent Total Time Spent: 75 Total Time Spent with Patient: Total time spent is greater than 50% in coordination of care (as documented) at patient's floor/unit and/or counseling patient: Advanced Care Planning 30058 Advanced Care Planning 30 Min [place] [address] SUB INP/OBS CARE 3/50MIN Patient Type Established History Comprehensive Exam Comprehensive Medical Decision Making High Complexity Diagnoses Dyspnea and respiratory abnormalities R06.00; R06.89 Anxiety F41.9 Insomnia due to medical condition G47.01 Insomnia type: due to medical condition Weakness generalized R53.1 Palliative care by specialist Z51.5 Advanced care planning/counseling discussion Z71.89 Acute renal failure superimposed on stage 4 chronic kidney disease, unspecified acute renal failure type N17.9; N18.4 Acute renal failure type: unspecified Nonrheumatic mitral valve regurgitation I34.0 Cardiac valve disease etiology: nonrheumatic Acute on chronic heart failure with preserved ejection fraction (HFpEF) I50.33 Acute on chronic combined systolic (congestive) and diastolic (congestive) heart failure I50.43 Additional Codes Advanced Care Planning - 44543 Advanced Care Planning 30 Min: 64716 Advanced Care Planning 30 Min ([id number]) (3) Insomnia Insomnia type: due to medical condition Qualified Code(s): G47.01 - Insomnia due to medical condition (7) Acute renal failure superimposed on stage 4 chronic kidney disease Acute renal failure type: unspecified Qualified Code(s): N17.9 - Acute kidney failure, unspecified; N18.4 - Chronic kidney disease, stage 4 (severe) (8) Mitral regurgitation Cardiac valve disease etiology: nonrheumatic Qualified Code(s): I34.0 - Nonrheumatic mitral (valve) insufficiency
[2023-04-21] MEDS: LORazepam 1 MG in SYRINGE 0.5 ML IV PRN ×2 (12:37→23:36)
[2023-04-21] MEDS: hydrALAZINE HCL 25 MG TAB PO SCH (22:46)
[2023-04-22] MEDS ORDERED: HALOPERIDOL ORAL SOLN 2 MG/ML PO PRN (00:29)
[2023-04-22] MEDS: NITROGLYCERIN 2% OINTMENT 30GM TUBE EXT SCH ×2 (05:49→13:33)
[2023-04-22] MEDS: hydrALAZINE TAB 50 MG TAB PO SCH ×2 (05:49→13:33)
[2023-04-22] MEDS: LORazepam 1 MG in SYRINGE 0.5 ML IV PRN (06:25)
[2023-04-22] MEDS: SODIUM BICARBONATE 650 MG TAB PO SCH ×2 (09:05→13:33)
[2023-04-22] MEDS: TORSEMIDE 100 MG TAB PO SCH (09:05)
[2023-04-22] MEDS: METOPROLOL SUCC 25MG EXT REL TAB PO SCH ×2 (09:05→20:23)
[2023-04-22] MEDS ORDERED: HYDROmorphone INJ 0.5 MG/0.5 ML SYR IV PRN (13:58)
[2023-04-22] MEDS ORDERED: HYDROmorphone INJ 1 MG/ML SYRINGE IV PRN (14:00)
--- NOTE | 2023-04-22 18:31 | Hospitalist Progress Note ---
Date of Service April 22, 2023 delayed entry date of service noted above Assessment & Plan (1) Acute on chronic combined systolic (congestive) and diastolic (congestive) heart failure: Plan: per [id number] service notes with addendum: Patient is 58 y/o M with nonischemic cardiomyopathy, chronic combined CHF, CKD IV, HTN, depression, ETOH use presented to ER for progressive shortness of breath, extremity edema in setting of medication noncompliance, and abnormal outpatient labs and chest x-ray In ER patient afebrile, P: 92, R: 20, BP: 169/95, 94% on room air. No leukocytosis UA without significant signs of infection. Negative respiratory panel CXR: Bilateral lower lung predominant airspace opacities which may represent atelectasis, pneumonia, and/or aspiration. Small bilateral pleural effusions are seen. CT chest w/o contrast: Moderate bilateral pleural effusions are seen. Consolidative and groundglass opacities with lymphadenopathy are favored to represent pneumonia. In ER given 1L NSS, Rocephin, doxycycline Troponin: 30.5-->31.2 During ER course patient becomes increasingly anxious, tachypneic and SOB. Noted to have sinus tachycardia on monitor rate 112, BP 165/111, 89% on room air up to 93% on 3 L nasal cannula. Lasix 100 mg IV stat ordered as well as Nitropaste BiPAP attempted however patient was unable to tolerate. Patient was given dose of Ativan and BiPAP attempted again however patient refused as was feeling less SOB. HR improved to 90's and sats 93% on 3L EKG ordered BNP elevated at 2869 Continue supplemental O2 - currently on oxymask 6L Lasix 100 mg IV twice daily - per nephrology -> now switch to PO torsemide 100 bid Continue Nitropaste Hold on antibiotics at this time as low suspicion for pneumonia, suspect this is 2/2 volume overload - TISHA on CKD, CHF Echo obtained - EF 50 to 55%. Moderate concentric LVH. Aortic valve sclerosis mild without significant aortic valvular stenosis. Moderate to severe mitral regurg. Posteriorly directed, eccentric mitral regurgitation jet. There is moderate to severe tricuspid regurg. Estimated systolic pulmonary pressure is 63 mmHg. Small circumferential pericardial effusion. There are no echocardiographic indications of cardiac tamponade. Moderate size right pleural effusion. Moderate-sized left pleural effusion. Cardiology consulted - Pt admitted w/ TISHA on CKD, volume overload, acute congestive HF. Topical nitrates for afterload reduction. Continue metoprolol and hydralazine. Amlodipine remain on hold due to volume overload. Poor prognosis due to renal failure, heart failure with preserved ejection fraction, cardiorenal syndrome. Continue high-dose furosemide per direction of neurology. Recommend palliative care consultation. 04/22 on comfort measures status only confirmed with Palliative Care Service comfortable overall continue PRN meds (2) Acute renal failure: Plan: Acute renal failure on CKD IV BUN:83, Cr:11 CT abdomen pelvis: No acute abnormalities are seen to explain abdominal pain per radiology read Patient with urine output in ER Monitor I's and O's Possible cardiorenal syndrome ER physician consulted on-call hamper maker machine who recommended Lasix 100 mg twice daily Nephrology consulted - discussed to place catheter for dialysis, pt refused. Also discussed blood transfusion - pt refused. -he has been non compliant with medication and follow up, with episodes of TISHA and uncontrolled HTN,he is high risk of progression to ESRD>>> he is likely ESRD now. Though he is making urine,this is not adequate , he continues to be in respiratory distress requiring high Oxygen. - Does not want dialysis, wants to be comfortable. - Recommend Palliative care consult. - Continue with diuretics and comfort measures. Comfort care - palliative medicine and pastoral services consulted - pt is very clear that he does not want any interventions and only wants to be medically managed and keep comfortable - cont. symptom management per pall. med. - friends visiting at the bedside daily, plan to hopefully bring in his brother who resides in [place] care 04/22 per above (3) Anemia: Plan: H/H: 7.01/16. Hgb was13 on 08/06/2022 Denies melena, hematochezia Hemoccult stool Anemia labs - iron 31, transferrin, 190, ferritin 279, monitor H&H. 04/17 Hgb 6.8 - discussed blood transfusion several times - pt refused. At this time does not wish for transfusion. Discussed w/ RN at the bedside. Monitor H&H - hgb continues to be low <7 and pt continues to refuse any blood transfusion, wishes to be comfortable (4) HTN (hypertension): Plan: Hypertensive in ER. Started Lasix, Nitropaste as above cont. hydralazine, metoprolol Hold amlodipine (5) Depression: Plan: Prior history of depression Not currently on medications DVT Prophylaxis SCDs Follows with Dr Rai for routine care CODE: DNR/ DNI - comfort care (6) Comfort measures only status: (7) Palliative care by specialist: (8) Weakness generalized: (9) Acute renal failure superimposed on stage 4 chronic kidney disease: (10) Acute on chronic heart failure with preserved ejection fraction (HFpEF): (11) Mitral regurgitation: (12) Dyspnea and respiratory abnormalities: Plan Patient is 58 y/o M with PMH nonischemic cardiomyopathy, chronic combined CHF, CKD IV, HTN, depression, ETOH use presented to ER for abnormal outpatient labs and abnormal outpatient CXR. CT chest w/o contrast: Moderate bilateral pleural effusions are seen. Consolidative and groundglass opacities with lymphadenopathy are favored to represent pneumonia. BiPAP was attempted due to acute respiratory failure, but patient unable to tolerate. Diuretics were transitioned to torsemide to 100 twice daily and cardiology was consulted. Cardiology recommended palliate care consult due to poor prognosis 2/2 renal failure, HFpEF and cardiorenal syndrome. Also evaluated by nephrology and patient refused to place catheter for dialysis and refused blood transfusion. Palliative consult also recommended by nephrology. Per discussion with palliative care, there was a clear discussion when patient elected to move forward with comfort measures only. At the direction of Dr. Zabala, PO regimen has been discontinued as he is no longer safe to take. Will discharge to [facility] with goal of maintaining comfort. Admission and Anticipated Discharge Date Admission Date: April 16, 2023 Subjective ff up for comfort measures status only, etc seen resting in bed, comfortable weak sleeping but easily awakened states he feels fine no chest pain, dyspnea, palpitations, dizziness denies pain no other new symptoms Review of Systems Review of Systems: all noted and negative except for above Physical Exam Physical Exam: General- oriented x 3, not in distress, speaks in sentences with no effort or accessory muscle use Eyes- anicteric Neck- no JVD Lungs- clear breath sounds bilaterally Heart- normal rate, regular rhythm; no murmurs Abdomen- normal bowel sounds, nondistended, soft, nontender Extremities- no pretibial edema, no calf tenderness Neuro- alert, oriented x 3; no gross focal neurologic deficits Skin- warm & dry Results & Data Results & Data Vital Signs (Past 12 Hours) Vital Signs Pulse BP Pulse Ox O2 Del Method O2 Flow Rate 04/22/23 13:00 83 163/91 H 96 Nasal Cannula 6 04/22/23 08:00 Nasal Cannula all noted and reviewed including below (2) Acute renal failure Acute renal failure type: unspecified Qualified Code(s): N17.9 - Acute kidney failure, unspecified (3) Anemia Anemia type: unspecified type Qualified Code(s): D64.9 - Anemia, unspecified (4) HTN (hypertension) Hypertension type: unspecified Qualified Code(s): I10 - Essential (primary) hypertension (9) Acute renal failure superimposed on stage 4 chronic kidney disease Acute renal failure type: unspecified Qualified Code(s): N17.9 - Acute kidney failure, unspecified; N18.4 - Chronic kidney disease, stage 4 (severe) (11) Mitral regurgitation Cardiac valve disease etiology: nonrheumatic Qualified Code(s): I34.0 - Nonrheumatic mitral (valve) insufficiency
--- NOTE | 2023-04-22 18:49 | Palliative Care Progress Note ---
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 If he is requiring a lot of PRN meds, please page me by [employer] and I can order a steadier infusion to improve his comfort. * He is transitioning to an active EOL process. If this decline continues, suspect anticipated survival of days. * Updated and d/w Dr Baumann Thank you for allowing us to participate in the ongoing care of this patient. Please don't hesitate to call or page with any additional concerns. Dr. Pauly Zabala DNP Director, Palliative Care Admission and Anticipated Discharge Date Admission Date: April 16, 2023 Subjective on SURGICAL DEVICE SALES REPRESENTATIVE less awake and alert more stuporous, sleeping more but occ arousable not taking much PO, not able to take PO meds safely Review of Systems Review of Systems: All systems reviewed & are unremarkable except as noted in Subjective and Unobtainable due to reduced consciousness Physical Exam Constitutional: + ill appearing, + cachectic, + altered mental status, + frail appearing, + diaphoretic and + lethargic ENMT: Mouth: + dry oral mucous membranes, + dentition abnormality, + dental caries, + edentulous, + poor dentition, + chipped teeth and + loose teeth Neck: trachea midline, no thyromegaly Respiratory: + respiratory distress, + labored breath ing, + uses accessory muscles, + dullness to percussion, + abnormal respiratory pattern and + prolonged expiratory phase Auscultation: + diminished lung sounds and + crackles Cardiovascular: Rate/Rhythm: + tachycardic Extremities: + pedal edema Gastrointestinal (Abdomen): Inspection/Auscultation: normal bowel sounds, + scaphoid and + visible pulsation Musculoskeletal: gen weakness Skin: + turgor decreased, + pallor and + hair thinning Neurologic: lethargic Results & Data Vital Signs (Past 12 Hours) Vital Signs Pulse BP Pulse Ox O2 Del Method O2 Flow Rate 04/22/23 13:00 83 163/91 H 96 Nasal Cannula 6 04/22/23 08:00 Nasal Cannula Laboratory Results on SURGICAL DEVICE SALES REPRESENTATIVE Diagnostic Findings on SURGICAL DEVICE SALES REPRESENTATIVE PG Care Time/CCT Total # of Minutes Spent Total Time Spent: 55 Total Time Spent with Patient: Total time spent is greater than 50% in coordination of care (as documented) at patient's floor/unit and/or counseling patient: I spent 55 minutes overall addressing this case: 10 min in medical data review/discussion with referring provider(s) and/or preparation for the visit 20 min in direct interaction with the patient/exam 00 min in Advance Care Planning/Goals of Care discussions as detailed above in note (must be >16min) 10 min in subsequent review and synthesis of assessment and plan 15 min communicating with other providers regarding the patient's case: primary team [place] [address] SUB INP/OBS CARE 3/50MIN Patient Type Established History Comprehensive Exam Comprehensive Medical Decision Making High Complexity Diagnoses Dyspnea and respiratory abnormalities R06.00; R06.89 Weakness generalized R53.1 Anxiety F41.9 Palliative care by specialist Z51.5
[2023-04-23] MEDS ORDERED: LEVALBUTEROL 1.25 MG/3 ML NEB ONE (03:57)
[2023-04-23] MEDS: METOPROLOL SUCC 25MG EXT REL TAB PO SCH (08:23)
--- NOTE | 2023-04-23 14:26 | Discharge Summary ---
Discharge Summary Date of Service April 23, 2023 Notes For Next Care Provider Transitioned to comfort measures only Medication Changes From Visit d/c'd all maintenance PO meds as no longer safe to take Admission HPI Per Admitting Provider Patient is 58 y/o M with PMH nonischemic cardiomyopathy, chronic combined CHF, CKD IV, HTN, depression, ETOH use presented to ER for abnormal outpatient labs and abnormal outpatient CXR. History obtained from patient and outpatient chart review. Patient seen at PCP office today for not feeling well with SOB, cough and increased BLE feet edema in which he had outpatient labs and found to have Cr: 11.4, H/H:8.7/24.8, and CXR with small bilateral effusions, patchy opacities. Patient was referred to ER. He states has had progressive SOB and increasing BLE edema. SOB worse with lying supine. States overall just not felt well and hasn't been able to do much secondary to exertional SOB. States has had nonproductive cough. Has not noted any fever or chills. Reported stopped drinking ETOH approximately one month ago. Admits to not taking medications regularly. Denies CP, diaphoresis, N/V/D/C, ATWOOD, dizziness, syncope, vision changes, neck pain, palpitations, hemoptysis, sore throat, choking, rhinorrhea, abdominal pain, extremity edema, rashes, urinary symptoms. Outpatient chart review echo 05/2022 EF: 35-40%, improved with medical therapies with EF 55% on echo in 08/2022. Seen in cardiology clinic 11/2022. Lasix decreased from 40mg BID to 40mg daily with ability to take extra if needed, and potassium was increased to 40meq bid Admission Exam Per Admitting Provider Exam revealed anxious gentleman with conversational dyspnea. HEENT: JVD+ to mandible RESP: +diffuse bilateral crackles CV: tachycardic, +LIVIER MSK Bilateral pitting edema 2+ to knees Principal Dx & Hospital Course #1 = Principal Diagnosis (1) Comfort measures only status: (2) Palliative care by specialist: (3) Weakness generalized: (4) Acute renal failure superimposed on stage 4 chronic kidney disease: (5) Acute on chronic heart failure with preserved ejection fraction (HFpEF): (6) Mitral regurgitation: (7) Hypertension: (8) Dyspnea and respiratory abnormalities: Plan Patient is 58 y/o M with PMH nonischemic cardiomyopathy, chronic combined CHF, CKD IV, HTN, depression, ETOH use presented to ER for abnormal outpatient labs and abnormal outpatient CXR. CT chest w/o contrast: Moderate bilateral pleural effusions are seen. Consolidative and groundglass opacities with lymphadenopathy are favored to represent pneumonia. BiPAP was attempted due to acute respiratory failure, but patient unable to tolerate. Diuretics were transitioned to torsemide to 100 twice daily and cardiology was consulted. Cardiology recommended palliate care consult due to poor prognosis 2/2 renal failure, HFpEF and cardiorenal syndrome. Also evaluated by nephrology and patient refused to place catheter for dialysis and refused blood transfusion. Palliative consult also recommended by nephrology. Per discussion with palliative care, there was a clear discussion when patient elected to move forward with comfort measures only. At the direction of Dr. Zabala, PO regimen has been discontinued as he is no longer safe to take. Will discharge to [facility] with goal of maintaining comfort. Discharge Exam General : thin M chronically ill appearing , on oxymask 6L HEENT: NC/AT, EOMI RESP: +diffuse bilateral crackles CV: tachycardic , +LIVIER MSK Bilateral trace edema Neuro: alert, oriented, answers appropriately, speech fluent, moves extremities Skin: warm, dry Hospital Stay Data Consultations 04/16/23 18:36 ED Decision to Admit Stat 04/16/23 21:56 Consult Cardiology Routine Consult Nephrology Routine 04/18/23 11:08 Consult Palliative Care Routine Diagnostic Imagining Performed 04/16/23 17:23 CT abd pelvis wo con Stat CT chest diagnostic wo con Stat Pending Results Patient Have Any Pending Studies at Discharge: No Discharge Instructions Given to Patient (Per Discharging Provider) MEDICATION CHANGES: Stopped PO regimen as he is no longer able to safely take, per palliative medicine. SUMMARY OF COURSE: You were admitted to hospital secondary progressive shortness of breath and decompensated heart failure. Cardiology and nephrology both evaluated patient and recommended palliative care consultation. Palliative care consulted and made decision with patient to transition to comfort measures only. Discharging to [facility] today. Please take good care of yourself. Call if you have any questions or problems. You can reach a [facility] hospitalist on duty at [facility] 24 hours a day by calling [phone]. Total Time Total Time Spent Total Time Spent (In Minutes): 40 Supervising Physician Co-Signing Physician Notes delayed entry date of service noted above Attending Addendum: care coordinated with MEENAKSHI Saucedo please refer to her notes for full details, I agree with her notes patient seen and examined, records reviewed by myself as well diagnoses and plan of care as per MEENAKSHI Bejarano MD
== END 2023-04-23 15:48 | disposition hospice, inpatient (51) | DRG 291 ==
LOC: ED 14:56 → 4W 19:52 → SUATTDRO 19:52 → 4W 21:22 → 3W 04-21 21:26
DX: N18.6 End stage renal disease; G47.01 Insomnia due to medical condition; I50.814 Right heart failure due to left heart failure; F41.9 Anxiety disorder, unspecified; Z91.148 Patient's other noncompliance with medication regimen for other reason; F10.10 Alcohol abuse, uncomplicated; I42.8 Other cardiomyopathies; J90 Pleural effusion, not elsewhere classified; I50.43 Acute on chronic combined systolic (congestive) and diastolic (congestive) heart failure; N17.9 Acute kidney failure, unspecified; J96.00 Acute respiratory failure, unspecified whether with hypoxia or hypercapnia; I13.2 Hypertensive heart and chronic kidney disease with heart failure and with stage 5 chronic kidney disease, or end stage renal disease; I08.1 Rheumatic disorders of both mitral and tricuspid valves; E87.20 Acidosis, unspecified; Z51.5 Encounter for palliative care; Z66 Do not resuscitate; I31.39 Other pericardial effusion (noninflammatory)